=== PATIENT | male | born 1950 | race Caucasian/White ===

== ENCOUNTER 2020-02-06 10:55 | Outpatient (REF) | payer MEDICARE, SELFPAY ==
[2020-02-06 11:26] LABS: Hematocrit 45.6 % (42-52); Hemoglobin 15.2 g/dl (14.0-18.0); Mean Corpuscular HGB Conc 33.3 g/dl (31.0-36.0); Mean Corpuscular Hemoglobin 29.5 pg (27.0-33.0); Mean Corpuscular Volume 88.5 fL (80-98); Mean Platelet Volume 12.8 fL (9.4-12.4); Platelet Count 144 X10*3/uL (160-400); Red Blood Count 5.15 X10*6/uL (4.60-5.80); Red Cell Distribution Width 13.9 % (11.0-16.0)
[2020-02-06 11:29] LABS: WBC ABN SCTR FOR CBC 1
[2020-02-06 11:48] LABS: Iron 87 mcg/dL (45-160); Percent Iron Saturation 21 % (15-50); Total Iron Binding Capacity 418 mcg/dL (228-428); Unsaturated Iron Binding 331 ug/dL
[2020-02-06 12:08] LABS: Ferritin 27 ng/mL (20-250)
[2020-02-06 12:32] LABS: Band Neutrophils Percent 0 % (3-5); Basophils Percent Manual 1 % (0-1); Eosinophils Percent Manual 1 % (0-4); Lymphocytes Percent Manual 36 % (20-40); Monocytes Percent Manual 10 % (2-11); Neutrophils Percent Manual 52 % (45-73); Platelet Estimate NORMAL (NORMAL); RBC Morphology NORMAL
[2020-02-06 12:33] LABS: Basophils Abs Manual 0.1 X10*3/uL (0.0-0.3); Eosinophils Absolute Manual 0.1 X10*3/UL (0.0-0.8); Large Platelet PRESENT; Lymphocytes Absolute Manual 2.1 X10*3/uL (0.6-4.8); Monocytes Absolute Manual 0.6 X10*3/uL (0.0-1.2); Platelet Morphology Comment NOTED; White Blood Count 5.7 X10*3/uL (4.8-10.8)
== END 2020-02-06 10:56 | disposition home or self-care (01) ==
LOC: HO.BBR 10:55
PROVIDERS: Visit Provider Internal Medicine Gastroenterology
DX: E83.110 Hereditary hemochromatosis (principal)
CPT/HCPCS: 36415; 82728; 83540; 85007; 85027; 99195

== ENCOUNTER 2020-06-16 11:39 | Outpatient (REF) | payer MEDICARE, SELFPAY ==
[2020-06-16 12:06] LABS: MANUAL DIFF FLAG NO
[2020-06-16 12:08] LABS: Basophils Percent Auto 0.5 % (0-2); Eosinophils Absolute Auto 0.2 X10*3/uL (0.0-0.4); Eosinophils Percent Auto 3.4 % (0-4); Hematocrit 46.2 % (42-52); Hemoglobin 15.4 g/dl (14.0-18.0); Lymphocytes Absolute Auto 1.8 X10*3/uL (1.2-4.9); Mean Corpuscular HGB Conc 33.3 g/dl (31.0-36.0); Mean Corpuscular Volume 89.9 fL (80-98); Mean Platelet Volume 12.3 fL (9.4-12.4); Monocytes Absolute Auto 0.6 X10*3/uL (0.1-1.2); Monocytes Percent Auto 8.8 % (2-11); Neutrophils Absolute Auto 3.6 X10*3/uL (2.0-8.3); Neutrophils Percent Auto 58.3 % (45-73); Platelet Count 138 X10*3/uL (160-400); Red Blood Count 5.14 X10*6/uL (4.60-5.80); Red Cell Distribution Width 13.9 % (11.0-16.0); White Blood Count 6.2 X10*3/uL (4.8-10.8)
[2020-06-16 13:21] LABS: Iron 108 mcg/dL (45-160); Percent Iron Saturation 28 % (15-50); Total Iron Binding Capacity 389 mcg/dL (228-428); Unsaturated Iron Binding 281 ug/dL
[2020-06-16 14:36] LABS: Ferritin 22 ng/mL (20-250)
== END 2020-06-16 11:40 | disposition home or self-care (01) ==
LOC: HO.BBR 11:39
PROVIDERS: Visit Provider Internal Medicine Gastroenterology
DX: E83.110 Hereditary hemochromatosis (principal)
CPT/HCPCS: 36415; 82728; 83540; 85025

== ENCOUNTER 2020-09-01 14:26 | Outpatient (REF) | payer MEDICARE, SELFPAY ==
[2020-09-01 14:42] LABS: MANUAL DIFF FLAG NO
[2020-09-01 14:45] LABS: Basophils Percent Auto 0.4 % (0-2); Eosinophils Absolute Auto 0.3 X10*3/uL (0.0-0.4); Eosinophils Percent Auto 3.6 % (0-4); Hemoglobin 14.8 g/dl (14.0-18.0); Imm Gran Abs Auto 0.02 X10*3/uL (0.00-0.03); Imm Gran Pct Auto 0.3 % (0.0-0.4); Lymphocytes Percent Auto 28.7 % (20-40); Mean Corpuscular HGB Conc 32.9 g/dl (31.0-36.0); Mean Corpuscular Hemoglobin 30.5 pg (27.0-33.0); Mean Corpuscular Volume 92.6 fL (80-98); Mean Platelet Volume 12.7 fL (9.4-12.4); Monocytes Absolute Auto 0.7 X10*3/uL (0.1-1.2); Monocytes Percent Auto 9.7 % (2-11); Neutrophils Absolute Auto 3.9 X10*3/uL (2.0-8.3); Neutrophils Percent Auto 57.3 % (45-73); Platelet Count 135 X10*3/uL (160-400); Red Blood Count 4.86 X10*6/uL (4.60-5.80); Red Cell Distribution Width 13.1 % (11.0-16.0); White Blood Count 6.9 X10*3/uL (4.8-10.8)
[2020-09-01 15:12] LABS: Iron 137 mcg/dL (45-160); Percent Iron Saturation 32 % (15-50); Total Iron Binding Capacity 426 mcg/dL (228-428); Unsaturated Iron Binding 289 ug/dL
[2020-09-01 15:32] LABS: Ferritin 30 ng/mL (20-250)
== END 2020-09-01 14:27 | disposition home or self-care (01) ==
LOC: HO.BBR 14:26
PROVIDERS: Visit Provider Internal Medicine Gastroenterology
DX: E83.110 Hereditary hemochromatosis (principal)
CPT/HCPCS: 36415; 82728; 83540; 85025

== ENCOUNTER 2020-12-10 11:03 | Outpatient (REF) | payer MEDICARE, SELFPAY ==
[2020-12-10 11:26] LABS: Hemoglobin 14.6 g/dl (14.0-18.0); Mean Corpuscular HGB Conc 33.2 g/dl (31.0-36.0); Mean Corpuscular Volume 90.3 fL (80-98); Platelet Count 128 X10*3/uL (160-400); Red Blood Count 4.87 X10*6/uL (4.60-5.80); Red Cell Distribution Width 13.7 % (11.0-16.0); White Blood Count 5.3 X10*3/uL (4.8-10.8)
[2020-12-10 12:37] LABS: Ferritin 27 ng/mL (20-250); Iron 108 mcg/dL (45-160); Percent Iron Saturation 27 % (15-50); Total Iron Binding Capacity 407 mcg/dL (228-428); Unsaturated Iron Binding 299 ug/dL
== END 2020-12-10 11:04 | disposition home or self-care (01) ==
LOC: HO.BBR 11:03
PROVIDERS: PCP Internal Medicine; Visit Provider Internal Medicine Gastroenterology
DX: E83.110 Hereditary hemochromatosis (principal)
CPT/HCPCS: 36415; 82728; 83540; 85027

== ENCOUNTER 2021-03-12 11:04 | Outpatient (REF) | payer MEDICARE, SELFPAY ==
[2021-03-12 11:16] LABS: MANUAL DIFF FLAG NO
[2021-03-12 11:19] LABS: Basophils Percent Auto 0.4 % (0-2); Eosinophils Absolute Auto 0.3 X10*3/uL (0.0-0.4); Eosinophils Percent Auto 3.7 % (0-4); Hematocrit 45.5 % (42.0-52.0); Hemoglobin 15.1 g/dl (14.0-18.0); Imm Gran Abs Auto 0.01 X10*3/uL (0.00-0.03); Imm Gran Pct Auto 0.1 % (0.0-0.4); Lymphocytes Absolute Auto 1.9 X10*3/uL (1.2-4.9); Lymphocytes Percent Auto 28.3 % (20-40); Mean Corpuscular HGB Conc 33.2 g/dl (31.0-36.0); Mean Corpuscular Hemoglobin 30.1 pg (27.0-33.0); Mean Corpuscular Volume 90.6 fL (80.0-98.0); Mean Platelet Volume 12.2 fL (9.4-12.4); Monocytes Absolute Auto 0.6 X10*3/uL (0.1-1.2); Monocytes Percent Auto 9.4 % (2-11); Neutrophils Absolute Auto 3.9 x10*3/uL (2.0-8.3); Neutrophils Percent Auto 58.1 % (45-73); Platelet Count 146 X10*3/uL (160-400); Red Blood Count 5.02 X10*6/uL (4.60-5.80); Red Cell Distribution Width 13.2 % (11.0-16.0); White Blood Count 6.8 X10*3/uL (4.8-10.8)
[2021-03-12 12:11] LABS: Iron 108 mcg/dL (45-160); Percent Iron Saturation 27 % (15-50); Total Iron Binding Capacity 407 mcg/dL (228-428); Unsaturated Iron Binding 299 ug/dL
[2021-03-12 12:30] LABS: Ferritin 33 ng/mL (20-250)
== END 2021-03-12 11:05 | disposition home or self-care (01) ==
LOC: HO.BBR 11:04
PROVIDERS: PCP Internal Medicine; Visit Provider Internal Medicine Gastroenterology
DX: E83.110 Hereditary hemochromatosis (principal)
CPT/HCPCS: 36415; 82728; 83540; 85025

== ENCOUNTER 2021-06-12 10:57 | Outpatient (REF) | payer MEDICARE, SELFPAY ==
[2021-06-12 11:14] LABS: MANUAL DIFF FLAG NO
[2021-06-12 11:20] LABS: Basophils Percent Auto 0.3 % (0-2); Eosinophils Absolute Auto 0.2 X10*3/uL (0.0-0.4); Eosinophils Percent Auto 3.6 % (0-4); Hematocrit 45.1 % (42.0-52.0); Hemoglobin 14.8 g/dl (14.0-18.0); Imm Gran Abs Auto 0.01 X10*3/uL (0.00-0.03); Imm Gran Pct Auto 0.2 % (0.0-0.4); Lymphocytes Absolute Auto 1.9 X10*3/uL (1.2-4.9); Lymphocytes Percent Auto 31.1 % (20-40); Mean Corpuscular HGB Conc 32.8 g/dl (31.0-36.0); Mean Corpuscular Hemoglobin 29.5 pg (27.0-33.0); Mean Platelet Volume 12.6 fL (9.4-12.4); Monocytes Absolute Auto 0.6 X10*3/uL (0.1-1.2); Monocytes Percent Auto 9.9 % (2-11); Neutrophils Absolute Auto 3.3 x10*3/uL (2.0-8.3); Neutrophils Percent Auto 54.9 % (45-73); Platelet Count 139 X10*3/uL (160-400); Red Blood Count 5.01 X10*6/uL (4.60-5.80); Red Cell Distribution Width 13.4 % (11.0-16.0); White Blood Count 6.1 X10*3/uL (4.8-10.8)
[2021-06-12 11:44] LABS: Iron 92 mcg/dL (45-160); Percent Iron Saturation 22 % (15-50); Total Iron Binding Capacity 426 mcg/dL (228-428); Unsaturated Iron Binding 334 ug/dL
[2021-06-12 12:04] LABS: Ferritin 31 ng/mL (20-250)
== END 2021-06-12 10:58 | disposition home or self-care (01) ==
LOC: HO.BBR 10:57
PROVIDERS: Visit Provider Internal Medicine Gastroenterology
DX: E83.110 Hereditary hemochromatosis (principal)
CPT/HCPCS: 36415; 82728; 83540; 85025

== ENCOUNTER 2021-09-09 10:50 | Outpatient (REF) | payer MEDICARE, SELFPAY ==
[2021-09-09 11:09] LABS: Hematocrit 45.2 % (42.0-52.0); Hemoglobin 15.3 g/dl (14.0-18.0); Mean Corpuscular HGB Conc 33.8 g/dl (31.0-36.0); Mean Corpuscular Volume 88.6 fL (80.0-98.0); Mean Platelet Volume 12.7 fL (9.4-12.4); Platelet Count 131 X10*3/uL (160-400); Red Cell Distribution Width 13.2 % (11.0-16.0)
[2021-09-09 11:11] LABS: WBC ABN SCTR FOR CBC 1
[2021-09-09 12:13] LABS: Iron 113 mcg/dL (45-160); Percent Iron Saturation 27 % (15-50); Total Iron Binding Capacity 411 mcg/dL (228-428); Unsaturated Iron Binding 298 ug/dL
[2021-09-09 12:34] LABS: Ferritin 30 ng/mL (20-250)
== END 2021-09-09 10:51 | disposition home or self-care (01) ==
LOC: HO.BBR 10:50
PROVIDERS: Visit Provider Internal Medicine Gastroenterology
DX: E83.110 Hereditary hemochromatosis (principal)
CPT/HCPCS: 36415; 82728; 83540; 85027

== ENCOUNTER 2021-12-10 10:45 | Outpatient (REF) | payer MEDICARE, SELFPAY ==
[2021-12-10 11:09] LABS: MANUAL DIFF FLAG NO
[2021-12-10 11:11] LABS: Basophils Percent Auto 0.5 % (0-2); Eosinophils Absolute Auto 0.2 X10*3/uL (0.0-0.4); Eosinophils Percent Auto 3.9 % (0-4); Hematocrit 46.3 % (42.0-52.0); Hemoglobin 15.5 g/dl (14.0-18.0); Imm Gran Abs Auto 0.01 X10*3/uL (0.00-0.03); Imm Gran Pct Auto 0.2 % (0.0-0.4); Lymphocytes Absolute Auto 1.7 X10*3/uL (1.2-4.9); Lymphocytes Percent Auto 29.5 % (20-40); Mean Corpuscular HGB Conc 33.5 g/dl (31.0-36.0); Mean Corpuscular Hemoglobin 30.2 pg (27.0-33.0); Mean Corpuscular Volume 90.3 fL (80.0-98.0); Mean Platelet Volume 12.5 fL (9.4-12.4); Monocytes Absolute Auto 0.6 X10*3/uL (0.1-1.2); Monocytes Percent Auto 10.2 % (2-11); Neutrophils Absolute Auto 3.3 x10*3/uL (2.0-8.3); Neutrophils Percent Auto 55.7 % (45-73); Platelet Count 136 X10*3/uL (160-400); Red Blood Count 5.13 X10*6/uL (4.60-5.80); Red Cell Distribution Width 13.5 % (11.0-16.0); White Blood Count 5.9 X10*3/uL (4.8-10.8)
[2021-12-10 11:58] LABS: Iron 78 mcg/dL (45-160); Percent Iron Saturation 18 % (15-50); Total Iron Binding Capacity 441 mcg/dL (228-428); Unsaturated Iron Binding 363 ug/dL
[2021-12-10 12:06] LABS: Ferritin 35 ng/mL (20-250)
== END 2021-12-10 10:46 | disposition home or self-care (01) ==
LOC: HO.BBR 10:45
PROVIDERS: Visit Provider Internal Medicine Gastroenterology
DX: E83.110 Hereditary hemochromatosis (principal)
CPT/HCPCS: 36415; 82728; 83540; 85025

== ENCOUNTER 2022-03-24 10:52 | Outpatient (REF) | payer MEDICARE, SELFPAY ==
[2022-03-24 11:15] LABS: MANUAL DIFF FLAG NO
[2022-03-24 11:17] LABS: Basophils Percent Auto 0.4 % (0-2); Eosinophils Absolute Auto 0.2 X10*3/uL (0.0-0.4); Eosinophils Percent Auto 2.8 % (0-4); Hematocrit 45.4 % (42.0-52.0); Hemoglobin 15.3 g/dl (14.0-18.0); Imm Gran Abs Auto 0.02 X10*3/uL (0.00-0.03); Imm Gran Pct Auto 0.3 % (0.0-0.4); Lymphocytes Absolute Auto 1.7 X10*3/uL (1.2-4.9); Lymphocytes Percent Auto 24.5 % (20-40); Mean Corpuscular HGB Conc 33.7 g/dl (31.0-36.0); Mean Corpuscular Hemoglobin 29.8 pg (27.0-33.0); Mean Corpuscular Volume 88.5 fL (80.0-98.0); Mean Platelet Volume 11.9 fL (9.4-12.4); Monocytes Absolute Auto 0.6 X10*3/uL (0.1-1.2); Monocytes Percent Auto 8.3 % (2-11); Neutrophils Absolute Auto 4.4 x10*3/uL (2.0-8.3); Neutrophils Percent Auto 63.7 % (45-73); Platelet Count 209 X10*3/uL (160-400); Red Blood Count 5.13 X10*6/uL (4.60-5.80); Red Cell Distribution Width 13.3 % (11.0-16.0); White Blood Count 6.9 X10*3/uL (4.8-10.8)
[2022-03-24 11:49] LABS: Iron 122 mcg/dL (45-160); Percent Iron Saturation 32 % (15-50); Total Iron Binding Capacity 384 mcg/dL (228-428); Unsaturated Iron Binding 262 ug/dL
[2022-03-24 12:10] LABS: Ferritin 42 ng/mL (20-250)
== END 2022-03-24 10:53 | disposition home or self-care (01) ==
LOC: HO.BBR 10:52
PROVIDERS: Visit Provider Internal Medicine Gastroenterology
DX: E83.110 Hereditary hemochromatosis (principal)
CPT/HCPCS: 36415; 82728; 83540; 85025

== ENCOUNTER 2022-06-09 10:53 | Outpatient (REF) | payer MEDICARE, SELFPAY ==
[2022-06-09 11:15] LABS: MANUAL DIFF FLAG NO
[2022-06-09 11:21] LABS: Basophils Percent Auto 0.5 % (0-2); Eosinophils Absolute Auto 0.2 X10*3/uL (0.0-0.4); Eosinophils Percent Auto 3.4 % (0-4); Hematocrit 44.6 % (42.0-52.0); Hemoglobin 14.4 g/dl (14.0-18.0); Imm Gran Abs Auto 0.01 X10*3/uL (0.00-0.03); Imm Gran Pct Auto 0.2 % (0.0-0.4); Lymphocytes Absolute Auto 1.9 X10*3/uL (1.2-4.9); Lymphocytes Percent Auto 32.4 % (20-40); Mean Corpuscular HGB Conc 32.3 g/dl (31.0-36.0); Mean Corpuscular Hemoglobin 28.6 pg (27.0-33.0); Mean Corpuscular Volume 88.5 fL (80.0-98.0); Mean Platelet Volume 12.3 fL (9.4-12.4); Monocytes Absolute Auto 0.6 X10*3/uL (0.1-1.2); Monocytes Percent Auto 9.9 % (2-11); Neutrophils Absolute Auto 3.2 x10*3/uL (2.0-8.3); Neutrophils Percent Auto 53.6 % (45-73); Platelet Count 148 X10*3/uL (160-400); Red Blood Count 5.04 X10*6/uL (4.60-5.80); Red Cell Distribution Width 13.6 % (11.0-16.0)
[2022-06-09 12:23] LABS: Iron 129 mcg/dL (45-160); Percent Iron Saturation 34 % (15-50); Total Iron Binding Capacity 381 mcg/dL (228-428); Unsaturated Iron Binding 252 ug/dL
[2022-06-09 12:32] LABS: Ferritin 30 ng/mL (20-250)
== END 2022-06-09 10:54 | disposition home or self-care (01) ==
LOC: HO.BBR 10:53
PROVIDERS: Visit Provider Internal Medicine Gastroenterology
DX: E83.110 Hereditary hemochromatosis (principal)
CPT/HCPCS: 36415; 82728; 83540; 85025

== ENCOUNTER 2022-09-29 10:47 | Outpatient (REF) | payer MEDICARE, SELFPAY ==
[2022-09-29 11:10] LABS: Hematocrit 44.7 % (42.0-52.0); Hemoglobin 14.4 g/dl (14.0-18.0); Mean Corpuscular HGB Conc 32.2 g/dl (31.0-36.0); Mean Corpuscular Volume 89.9 fL (80.0-98.0); Platelet Count 151 X10*3/uL (160-400); Red Blood Count 4.97 X10*6/uL (4.60-5.80); Red Cell Distribution Width 15.3 % (11.0-16.0)
[2022-09-29 11:15] LABS: WBC ABN SCTR FOR CBC 1
[2022-09-29 11:48] LABS: Atypical Lymphs Percent Manual 1 % (0-6); Band Neutrophils Percent 1 % (3-5); Basophils Percent Manual 1 % (0-2); Eosinophils Percent Manual 3 % (0-4); Lymphocytes Percent Manual 31 % (20-40); Monocytes Percent Manual 6 % (2-11); Neutrophils Percent Manual 57 % (45-73)
[2022-09-29 11:49] LABS: Platelet Estimate NORMAL (NORMAL); Platelet Morphology Comment NORMAL; RBC Morphology NORMAL
[2022-09-29 11:50] LABS: Atypical Lymph Absolute Manual 0.1 x10*3/uL; Basophils Abs Manual 0.1 X10*3/uL (0.0-0.2); Eosinophils Absolute Manual 0.3 X10*3/uL (0.0-0.4); Monocytes Absolute Manual 0.6 X10*3/uL (0.1-1.2); Neutrophils Absolute Manual 5.6 X10*3/uL (2.0-8.3); White Blood Count 9.6 X10*3/uL (4.8-10.8)
[2022-09-29 11:59] LABS: Iron 90 mcg/dL (45-160); Percent Iron Saturation 22 % (15-50); Total Iron Binding Capacity 408 mcg/dL (228-428); Unsaturated Iron Binding 318 ug/dL
[2022-09-29 12:00] LABS: Ferritin 21 ng/mL (20-250)
== END 2022-09-29 10:48 | disposition home or self-care (01) ==
LOC: HO.BBR 10:47
PROVIDERS: Visit Provider Internal Medicine Gastroenterology
DX: E83.110 Hereditary hemochromatosis (principal)
CPT/HCPCS: 36415; 82728; 83540; 85007; 85027

== ENCOUNTER 2022-12-30 11:02 | Outpatient (REF) | payer MEDICARE, SELFPAY ==
[2022-12-30 11:33] LABS: MANUAL DIFF FLAG NO
[2022-12-30 11:38] LABS: Basophils Percent Auto 0.3 % (0-2); Eosinophils Absolute Auto 0.2 X10*3/uL (0.0-0.4); Eosinophils Percent Auto 3.5 % (0-4); Hematocrit 42.5 % (42.0-52.0); Hemoglobin 14.1 g/dl (14.0-18.0); Imm Gran Abs Auto 0.01 X10*3/uL (0.00-0.03); Imm Gran Pct Auto 0.2 % (0.0-0.4); Lymphocytes Absolute Auto 1.6 X10*3/uL (1.2-4.9); Lymphocytes Percent Auto 27.6 % (20-40); Mean Corpuscular HGB Conc 33.2 g/dl (31.0-36.0); Mean Corpuscular Hemoglobin 29.3 pg (27.0-33.0); Mean Corpuscular Volume 88.2 fL (80.0-98.0); Mean Platelet Volume 12.7 fL (9.4-12.4); Monocytes Absolute Auto 0.4 X10*3/uL (0.1-1.2); Monocytes Percent Auto 7.7 % (2-11); Neutrophils Absolute Auto 3.5 x10*3/uL (2.0-8.3); Neutrophils Percent Auto 60.7 % (45-73); Platelet Count 131 X10*3/uL (160-400); Red Blood Count 4.82 X10*6/uL (4.60-5.80); Red Cell Distribution Width 13.9 % (11.0-16.0); White Blood Count 5.7 X10*3/uL (4.8-10.8)
[2022-12-30 14:01] LABS: Iron 126 mcg/dL (45-160); Percent Iron Saturation 33 % (15-50); Total Iron Binding Capacity 377 mcg/dL (228-428); Unsaturated Iron Binding 251 ug/dL
[2022-12-30 14:16] LABS: Ferritin 22 ng/mL (20-250)
== END 2022-12-30 11:03 | disposition home or self-care (01) ==
LOC: HO.BBR 11:02
PROVIDERS: Visit Provider Internal Medicine Gastroenterology
DX: E83.110 Hereditary hemochromatosis (principal)
CPT/HCPCS: 36415; 82728; 83540; 85025

== ENCOUNTER 2023-03-31 10:59 | Outpatient (REF) | payer MEDICARE, SELFPAY ==
[2023-03-31 11:16] LABS: MANUAL DIFF FLAG NO
[2023-03-31 11:23] LABS: Basophils Percent Auto 0.4 % (0-2); Eosinophils Absolute Auto 0.3 X10*3/uL (0.0-0.4); Eosinophils Percent Auto 5.5 % (0-4); Hematocrit 46.4 % (42.0-52.0); Hemoglobin 14.9 g/dl (14.0-18.0); Imm Gran Abs Auto 0.01 X10*3/uL (0.00-0.03); Imm Gran Pct Auto 0.2 % (0.0-0.4); Lymphocytes Absolute Auto 1.5 X10*3/uL (1.2-4.9); Lymphocytes Percent Auto 26.3 % (20-40); Mean Corpuscular HGB Conc 32.1 g/dl (31.0-36.0); Mean Corpuscular Hemoglobin 28.2 pg (27.0-33.0); Mean Corpuscular Volume 87.9 fL (80.0-98.0); Mean Platelet Volume 12.6 fL (9.4-12.4); Monocytes Absolute Auto 0.4 X10*3/uL (0.1-1.2); Monocytes Percent Auto 6.2 % (2-11); Neutrophils Absolute Auto 3.5 x10*3/uL (2.0-8.3); Neutrophils Percent Auto 61.4 % (45-73); Platelet Count 144 X10*3/uL (160-400); Red Blood Count 5.28 X10*6/uL (4.60-5.80); Red Cell Distribution Width 14.9 % (11.0-16.0); White Blood Count 5.6 X10*3/uL (4.8-10.8)
[2023-03-31 12:32] LABS: Ferritin 27 ng/mL (20-250); Iron 78 mcg/dL (45-160); Percent Iron Saturation 21 % (15-50); Total Iron Binding Capacity 375 mcg/dL (228-428); Unsaturated Iron Binding 297 ug/dL
== END 2023-03-31 11:00 | disposition home or self-care (01) ==
LOC: HO.BBR 10:59
PROVIDERS: PCP Internal Medicine; Visit Provider Internal Medicine Gastroenterology
DX: E83.110 Hereditary hemochromatosis (principal)
CPT/HCPCS: 36415; 82728; 83540; 85025

== ENCOUNTER 2023-08-22 10:48 | Outpatient (REF) | payer MEDICARE, SELFPAY ==
[2023-08-22 11:10] LABS: MANUAL DIFF FLAG NO
[2023-08-22 11:12] LABS: Basophils Percent Auto 0.4 % (0-2); Eosinophils Absolute Auto 0.2 X10*3/uL (0.0-0.4); Eosinophils Percent Auto 4.1 % (0-4); Hematocrit 44.7 % (42.0-52.0); Hemoglobin 14.6 g/dl (14.0-18.0); Imm Gran Abs Auto 0.01 X10*3/uL (0.00-0.03); Imm Gran Pct Auto 0.2 % (0.0-0.4); Lymphocytes Absolute Auto 1.5 X10*3/uL (1.2-4.9); Lymphocytes Percent Auto 27.9 % (20-40); Mean Corpuscular HGB Conc 32.7 g/dl (31.0-36.0); Mean Corpuscular Volume 88.9 fL (80.0-98.0); Monocytes Absolute Auto 0.4 X10*3/uL (0.1-1.2); Monocytes Percent Auto 8.2 % (2-11); Neutrophils Absolute Auto 3.2 x10*3/uL (2.0-8.3); Neutrophils Percent Auto 59.2 % (45-73); Platelet Count 138 X10*3/uL (160-400); Red Blood Count 5.03 X10*6/uL (4.60-5.80); Red Cell Distribution Width 15.9 % (11.0-16.0); White Blood Count 5.4 X10*3/uL (4.8-10.8)
[2023-08-22 13:14] LABS: Iron 103 mcg/dL (45-160); Percent Iron Saturation 29 % (15-50); Total Iron Binding Capacity 358 mcg/dL (228-428); Unsaturated Iron Binding 255 ug/dL
[2023-08-22 13:22] LABS: Ferritin 28 ng/mL (20-250)
== END 2023-08-22 10:49 | disposition home or self-care (01) ==
LOC: HO.BBR 10:48
PROVIDERS: PCP Internal Medicine; Visit Provider Internal Medicine Gastroenterology
DX: E83.110 Hereditary hemochromatosis (principal)
CPT/HCPCS: 36415; 82728; 83540; 85025

== ENCOUNTER 2024-01-23 11:00 | Outpatient (REF) | payer MEDICARE, SELFPAY ==
[2024-01-23 11:18] LABS: Hematocrit 46.7 % (42.0-52.0); Hemoglobin 15.6 g/dl (14.0-18.0); Mean Corpuscular HGB Conc 33.4 g/dl (31.0-36.0); Mean Corpuscular Hemoglobin 30.1 pg (27.0-33.0); Mean Platelet Volume 12.4 fL (9.4-12.4); Platelet Count 149 X10*3/uL (160-400); Red Blood Count 5.19 X10*6/uL (4.60-5.80); Red Cell Distribution Width 14.3 % (11.0-16.0); WBC ABN SCTR FOR CBC 1
[2024-01-23 11:47] LABS: Band Neutrophils Percent 0 % (3-5); Basophils Percent Manual 2 % (0-2); Eosinophils Percent Manual 1 % (0-4); Lymphocytes Percent Manual 25 % (20-40); Monocytes Percent Manual 8 % (2-11); Neutrophils Percent Manual 64 % (45-73); RBC Morphology NORMAL
[2024-01-23 11:48] LABS: Basophils Abs Manual 0.1 X10*3/uL (0.0-0.2); Eosinophils Absolute Manual 0.1 X10*3/uL (0.0-0.4); Lymphocytes Absolute Manual 1.6 X10*3/uL (1.2-4.9); Monocytes Absolute Manual 0.5 X10*3/uL (0.1-1.2); Neutrophils Absolute Manual 4.2 X10*3/uL (2.0-8.3); Platelet Estimate NORMAL (NORMAL); Platelet Morphology Comment NORMAL; White Blood Count 6.5 X10*3/uL (4.8-10.8)
[2024-01-23 12:47] LABS: Iron 193 mcg/dL (45-160); Percent Iron Saturation 51 % (15-50); Total Iron Binding Capacity 376 mcg/dL (228-428); Unsaturated Iron Binding 183 ug/dL
[2024-01-23 12:49] LABS: Ferritin 60 ng/mL (20-250)
== END 2024-01-23 11:01 | disposition home or self-care (01) ==
LOC: HO.BBR 11:00
PROVIDERS: PCP Internal Medicine; Visit Provider Internal Medicine Gastroenterology
DX: E83.110 Hereditary hemochromatosis (principal)
CPT/HCPCS: 36415; 82728; 83540; 85007; 85027

== ENCOUNTER 2024-06-01 10:56 | Outpatient (REF) | payer MEDICARE, SELFPAY ==
[2024-06-01 11:19] LABS: MANUAL DIFF FLAG NO
[2024-06-01 11:20] LABS: Basophils Percent Auto 0.4 % (0-2); Eosinophils Absolute Auto 0.2 X10*3/uL (0.0-0.4); Eosinophils Percent Auto 3.9 % (0-4); Hematocrit 45.9 % (42.0-52.0); Hemoglobin 15.4 g/dl (14.0-18.0); Imm Gran Abs Auto 0.01 X10*3/uL (0.00-0.03); Imm Gran Pct Auto 0.2 % (0.0-0.4); Lymphocytes Absolute Auto 1.6 X10*3/uL (1.2-4.9); Lymphocytes Percent Auto 30.8 % (20-40); Mean Corpuscular HGB Conc 33.6 g/dl (31.0-36.0); Mean Corpuscular Hemoglobin 30.8 pg (27.0-33.0); Mean Corpuscular Volume 91.8 fL (80.0-98.0); Mean Platelet Volume 12.5 fL (9.4-12.4); Monocytes Absolute Auto 0.4 X10*3/uL (0.1-1.2); Monocytes Percent Auto 7.5 % (2-11); Neutrophils Percent Auto 57.2 % (45-73); Platelet Count 142 X10*3/uL (160-400); Red Cell Distribution Width 13.9 % (11.0-16.0); White Blood Count 5.2 X10*3/uL (4.8-10.8)
[2024-06-01 12:08] LABS: Iron 104 mcg/dL (45-160); Percent Iron Saturation 30 % (15-50); Total Iron Binding Capacity 347 mcg/dL (228-428); Unsaturated Iron Binding 243 ug/dL
[2024-06-01 12:23] LABS: Ferritin 34 ng/mL (20-250)
== END 2024-06-01 10:57 | disposition home or self-care (01) ==
LOC: HO.BBR 10:56
PROVIDERS: PCP Internal Medicine; Visit Provider Internal Medicine Gastroenterology
DX: E83.110 Hereditary hemochromatosis (principal)

== ENCOUNTER 2024-10-01 10:54 | Outpatient (REF) | payer MEDICARE, SELFPAY ==
[2024-10-01 11:10] LABS: MANUAL DIFF FLAG NO
[2024-10-01 11:11] LABS: Basophils Percent Auto 0.5 % (0-2); Eosinophils Absolute Auto 0.2 X10*3/uL (0.0-0.4); Eosinophils Percent Auto 3.2 % (0-4); Hematocrit 47.8 % (42.0-52.0); Imm Gran Abs Auto 0.02 X10*3/uL (0.00-0.03); Imm Gran Pct Auto 0.3 % (0.0-0.4); Lymphocytes Absolute Auto 1.7 X10*3/uL (1.2-4.9); Lymphocytes Percent Auto 25.3 % (20-40); Mean Corpuscular HGB Conc 33.5 g/dl (31.0-36.0); Mean Corpuscular Volume 92.6 fL (80.0-98.0); Mean Platelet Volume 12.3 fL (9.4-12.4); Monocytes Absolute Auto 0.6 X10*3/uL (0.1-1.2); Monocytes Percent Auto 8.9 % (2-11); Neutrophils Absolute Auto 4.1 x10*3/uL (2.0-8.3); Neutrophils Percent Auto 61.8 % (45-73); Platelet Count 148 X10*3/uL (160-400); Red Blood Count 5.16 X10*6/uL (4.60-5.80); Red Cell Distribution Width 13.1 % (11.0-16.0); White Blood Count 6.6 X10*3/uL (4.8-10.8)
[2024-10-01 11:59] LABS: Iron 182 mcg/dL (45-160); Percent Iron Saturation 47 % (15-50); Total Iron Binding Capacity 388 mcg/dL (228-428); Unsaturated Iron Binding 206 ug/dL
[2024-10-01 12:13] LABS: Ferritin 39 ng/mL (20-250)
--- OUTSIDE RECORDS SUMMARY | 2024-10-01 12:29 | XMS_ITS | Data Portability ---
Author Organization [facility], [facility] Address [address] [place] [address] Care Team Providers Care Piano Builder Name Role Phone JESUS ALBERTORAMONA NOLEN Primary Care Provider STERLING PACHECO College Director SHYAM KABA Sleep Medicine Assessment Encounter Date Assessment Date Assessment LastModified by Organization Details LastModified Time 04/27/2023 04/27/2023 We completed your Medicare Wellness exam today. This was an opportunity to assess your overall well being including your ability to care for yourself, your mobility, memory, mental health, as well as your safety. With advancing age, it is important to assign someone in your life as your Health Care Proxy (HCP). This person should know what is important to you and what your wishes are for medical procedures if you cannot communicate your wishes yourself (severe illness, unconsciousness) . Tetanus Vaccine : Every 10 years. The following vaccines are available from your pharmacy: Pneumonia Vaccine : PCV20: once after age 65. Shingles Vaccine : 2 shots after age 50. Covid Vaccine : Make sure you have received the most up to date covid vaccine. 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 has committed to healthy lifestyle in effort to get in shape and lose weight. Looks well. 02/2022 gassiness eased with fewer carbs, cut dairy as well, stools have firmed up a bit 08/25/2021 usual GI complaints, appear easing however 02/2021 normal exam 07/16/2020 allergies- U retention from antihistamine loose stool with urgency 2-3 times day, try mehdi bean video 01/16/2020 lisinopril increased to 20 with new Rx as his home BP's 140 systolic asked to follow 07/2019 telemed doxy each problem reviewed, stable in each instance atopy; may try half tab of OTC non sedating antihistamine in light of liver disease 12/2018 needs shingles motrin and claritin discussed for knee exercise pain and seasonal allergies. 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 has committed to healthy lifestyle in effort to get in shape and lose weight. Looks well. 02/2022 gassiness eased with fewer carbs, cut dairy as well, stools have firmed up a bit 08/25/2021 usual GI complaints, appear easing however 02/2021 normal exam 07/16/2020 allergies- U retention from antihistamine loose stool with urgency 2-3 times day, try mehdi bean video 01/16/2020 lisinopril increased to 20 with new Rx as his home BP's 140 systolic asked to follow 07/2019 telemed doxy each problem reviewed, stable in each instance atopy; may try half tab of OTC non sedating antihistamine in light of liver disease 12/2018 needs shingles motrin and claritin discussed for knee exercise pain and seasonal allergies. rvigderman Not available 01/03/2024 08:48:31 05/25/2024 05/25/2024 We completed your Medicare Wellness exam today. This was an opportunity to assess your overall well being including your ability to care for yourself, your mobility, memory, mental health, as well as your safety. With advancing age, it is important to assign someone in your life as your Health Care Proxy (HCP). This person should know what is important to you and what your wishes are for medical procedures if you cannot communicate your wishes yourself (severe illness, unconsciousness) . Influenza Vaccine : Flu shot yearly. Tetanus Vaccine : Every 10 years. The following vaccines are available from your pharmacy: Pneumonia Vaccine : PCV20: once after age 65. Shingles Vaccine : 2 shots after age 50. Covid Vaccine : Make sure you have received the most up to date covid vaccine. liked Dr Negrete work with IOL 11/2023- rj nght driving active in [place] goal HR 115 for ten minutes seen twice a year. june in [facility] .. cookie Not available 05/25/2024 11:49:33 Plan of Treatment Reminders Order Date Submit Date Provider Last Modified By Organization Details Last Modified Time Details Appointments LAB Follow-U p 2024 09:00A M [facility] Not available Not available Not available Medical Manageme nt 30 2024 09:30A M Ramona Dunn MD Not available Not available Not available Lab PSA, serum or plasma 2024 025 [facility], [address] [place] [address], [id number], 05/25/2024 11:49:10 PSA, serum or plasma 2023 025 [facility], [address] [place] [address], [id number], 01/03/2024 08:55:15 Referral dermatol ogist referral 2023 024 [facility], [address] [place] [address], [id number], 08/22/2023 09:31:57 Procedures colonosc opy procedur e (PROC) [address] [facility], [address] [place] [address], [id number], 05/28/2024 09:47:16 Surgeries None recorded . Imaging None recorded . Medication Orders amoxicil abisai 500 mg capsule 2023 024 [facility] #[id number], [address] [place], [address], 01/03/2024 08:55:18 Patient TargetsNo targets recorded. Patient Instructions Encounter Date Encounter Id Patient Instructions Last Modified By Organization Details Last Modified Time 04/27/2023 [id number] preventing falls: care instructions rvigderman Not available 04/30/2023 08:31:37 hearing loss information rvigderman Not available 04/30/2023 08:31:36 advance directives: care instructions rvigderman Not available 04/30/2023 08:31:37 well visit, over 65: care instructions rvigderman Not available 04/30/2023 08:31:36 08/19/2023 [id number] - Per our discussion you have agreed with the above assessment/plan as stated. - Please follow-up with our office as recommended and perform lab work/imaging/ref erral if indicated. - You can follow-up with our office sooner for any acute concern at [phone]. - If unable to reach our practice and you are in need of immediate care do not hesitate to seek immediate medical attention by calling 911 or going to the ER/Urgent care. - All questions answered. pfionte Not available 08/19/2023 09:47:46 02/27/2024 [id number] high blood pressure: care instructions rvigderman Not available 02/27/2024 09:43:46 learning about high blood pressure rvigderman Not available 02/27/2024 09:43:47 05/25/2024 [id number] high blood pressure: care instructions rvigderman Not available 05/25/2024 11:49:10 learning about high blood pressure rvigderman Not available 05/25/2024 11:49:10 Reason for Referral Electric Tape Slitter Referral for S eborrheic keratosis Referring Physician: Danny Wolf, Family Medicine, Encounter Date: 08/19/2023 Results Created Date Observation Date Name Description Value Unit Range Abnormal Flag Note LastModifiedBy Organization Detail LastModifiedTime 03/29/2003/29/2023 COMPR EHENS MERLYN METAB OLIC PANEL sodium 141 mmol/ L 133-14 6 Not Available [facility] (Out[facility]) [address] [place], [address], 03/29/2023 17:08:21 03/29/20 23 03/29/2023 COMPR EHENS MERLYN METAB OLIC PANEL potassium 4.5 mmol/ L 3.3-5. 1 Not Available [facility] (Outpatient) [address] [place], [address], 03/29/2023 17:08:21 03/29/20 23 03/29/2023 COMPR EHENS MERLYN METAB OLIC PANEL chloride 103 mmol/ L 96-108 Not Available [facility] (Outpatient) [address] [place], [address], 03/29/2023 17:08:21 03/29/20 23 03/29/2023 COMPR EHENS MERLYN METAB OLIC PANEL CO2 29 mmol/ L 21-35 Not Available [facility] (Outpatient) [address] [place], [address], 03/29/2023 17:08:21 03/29/20 23 03/29/2023 COMPR EHENS MERLYN METAB OLIC PANEL BUN 15 mg/dL 6-19 Not Available [facility] (Outpatient) [address] [place], [address], 03/29/2023 17:08:21 03/29/20 23 03/29/2023 COMPR EHENS MERLYN METAB OLIC PANEL creatinine 1.00 mg/dL 0.5-1. 5 Not Available [facility] (Outpatient) [address] [place], [address], 03/29/2023 17:08:21 03/29/20 23 03/29/2023 COMPR EHENS MERLYN METAB OLIC PANEL glucose 109 mg/dL 70-99 high Not Available [facility] (Outpatient) [address] [place], [address], 03/29/2023 17:08:21 03/29/20 23 03/29/2023 COMPR EHENS MERLYN METAB OLIC PANEL albumin 4.7 g/dL 3.9-4. 8 Not Available [facility] (Outpatient) [address] [place], [address], 03/29/2023 17:08:21 03/29/20 23 03/29/2023 COMPR EHENS MERLYN METAB OLIC PANEL total protein 7.6 g/dL 6.5-8. 0 Not Available [facility] (Outpatient) [address] [place], [address], 03/29/2023 17:08:21 03/29/20 23 03/29/2023 COMPR EHENS MERLYN METAB OLIC PANEL calcium 9.6 mg/dL 8.4-10 .3 Not Available [facility] (Outpatient) [address] [place], [address], 03/29/2023 17:08:21 03/29/20 23 03/29/2023 COMPR EHENS MERLYN METAB OLIC PANEL alkaline phosphatase 56 U/L 39-117 Not Available [facility] (Outpatient) [address] [place], [address], 03/29/2023 17:08:21 03/29/20 23 03/29/2023 COMPR EHENS MERLYN METAB OLIC PANEL total bilirubin 0.5 mg/dL 0.0-1. 2 Not Available [facility] (Outpatient) [address] [place], [address], 03/29/2023 17:08:21 03/29/20 23 03/29/2023 COMPR EHENS MERLYN METAB OLIC PANEL AST 31 U/L 0-37 Not Available [facility] (Out[facility]) [address] [place], [address], 03/29/2023 17:08:21 03/29/20 23 03/29/2023 COMPR EHENS MERLYN METAB OLIC PANEL ALT 25 U/L 0-40 Not Available [facility] (Outpatient) [address] [place], [address], 03/29/2023 17:08:21 03/29/20 23 03/29/2023 COMPR EHENS MERLYN METAB OLIC PANEL globulin 2.9 g/dL 1-4.8 Not Available [facility] (Outpatient) [address] [place], [address], 03/29/2023 17:08:21 03/29/20 23 03/29/2023 COMPR EHENS MERLYN METAB OLIC PANEL eGFR 79 mL/mi n/1.7 3m2 >59 Estim ated glome rular filtr ation rate calcu lated using the CKD-E PI refit equat ion. Not Available [facility] (Outpatient) [address] [place], [address], 03/29/2023 17:08:21 03/29/20 23 03/29/2023 COMPR EHENS MERLYN METAB OLIC PANEL anion gap 14 mmol/ L 10-20 Not Available [facility] (Outpatient) [address] [place], [address], 03/29/2023 17:08:21 03/29/20 23 03/29/2023 AFP (NON- MATER NAL SPECI MENS) AFP (non-materna l) 4.2 NG/mL <7.9 Test Metho dolog y Viji e801 Patie nt resul ts deter mined by assay s using diffe rent manuf actur ers or metho ds may not be malia rable . Not Available [facility] (Outpatient) [address] [place], [address], 03/29/2023 17:22:26 04/21/20 23 04/21/2023 BASIC METAB OLIC PANEL glucose 116 mg/dL 70-100 high Not Available [address], [address], 04/21/2023 14:32:21 04/21/20 23 04/21/2023 BASIC METAB OLIC PANEL BUN 20 mg/dL 7-18 high Not Available [address], [address], 04/21/2023 14:32:21 04/21/20 23 04/21/2023 BASIC METAB OLIC PANEL creatinine 1.1 mg/dL 0.8-1. 3 Not Available [address], [address], 04/21/2023 14:32:21 04/21/20 23 04/21/2023 BASIC METAB OLIC PANEL B/C 18.2 ratio Not Available [address], [address], 04/21/2023 14:32:21 04/21/20 23 04/21/2023 BASIC METAB OLIC PANEL GFR >=60ML /MIN mL/mi n normal >=60m L/min - Andreina l or midly reduc ed <60mL /min- Decre ased kidne y funct ion <15mL /min - Kidne y failu re [facility] calcu lates estim ated Glome rular Filtr ation Rate (eGFR ) using the Chron ic Kidne y Disea se Epide miolo gy Colla borat ion (CKD- EPI) Equat ion (Stefany r et. al 2020) as recom gillian d by the Natio nal Kidne y Found ation . eGFR is based on age, serum creat inine , and sex. CKD-E PI does not calcu late eGFR by race, does not apply to child lane (age <18 years ), and shoul d not be used in pregn julisa. Not Available [address], [address], 04/21/2023 14:32:21 04/21/20 23 04/21/2023 BASIC METAB OLIC PANEL sodium 144 mmol/ L 136-14 5 Not Available [address], [address], 04/21/2023 14:32:21 04/21/20 23 04/21/2023 BASIC METAB OLIC PANEL potassium 4.4 mmol/ L 3.5-5. 1 Not Available [address], [address], 04/21/2023 14:32:21 04/21/20 23 04/21/2023 BASIC METAB OLIC PANEL chloride 105 mmol/ L 96-107 Not Available [address], [address], 04/21/2023 14:32:21 04/21/20 23 04/21/2023 BASIC METAB OLIC PANEL anion gap 11.5 5.0-15 .0 Not Available [address], [address], 04/21/2023 14:32:21 04/21/20 23 04/21/2023 BASIC METAB OLIC PANEL CO2 28 mmol/ L 21-32 Not Available [address], [address], 04/21/2023 14:32:21 04/21/20 23 04/21/2023 BASIC METAB OLIC PANEL calcium 9.1 mg/dL 8.5-10 .3 Not Available [address], [address], 04/21/2023 14:32:21 04/21/20 23 04/21/2023 LIPID PANEL cholesterol 152 mg/dL <200 mg/dl Ric able 200-2 39 mg/dl Borde rline High >240 mg/dl High Not Available [address], [address], 04/21/2023 14:32:22 04/21/20 23 04/21/2023 LIPID PANEL triglyceride s 64 mg/dL <150 mg/dL Andreina l 150-1 99 mg/dL Borde rline High 200-4 99 mg/dL High >500 mg/dL Very High Not Available [address], [address], 04/21/2023 14:32:22 04/21/20 23 04/21/2023 LIPID PANEL direct HDL 49 mg/dL <40 mg/dl - Major Risk for CHD >60 mg/dl - Negat merlyn Risk for CHD Not Available [address], [address], 04/21/2023 14:32:22 04/21/20 23 04/21/2023 LDL - CALCU LATED LDL - calculated 90.2 RISK CATEG ORY LDL GOAL _ CHD or CHD Risk Equiv alent s <100 mg/dl (10-y ear risk >20%) 2+ Risk Facto rs <130 mg/dl (10-y ear risk <= 20%) 0-1 Risk Facto r? <160 mg/dl ? Almos t all peopl e with 0-1 risk facto r have a 10 year risk <10%, thus 10 year risk asses ment in peopl e with 0-1 risk facto r is not neces daniel. Not Available [address], [address], 04/21/2023 14:32:23 04/21/20 23 04/21/2023 HGB A1C hemoglobin A1C 6.0 % 4.8-6. 0 Goal: <7% in Patie nts with Diabe ayush An A1c betwe en 5.7-6 .4% is ident ified as pre-d iabet es and sugge sts risk for progr essio n to diabe ayush Two a1c value s of 6.5% or highe r is consi stent with a diagn osis of diabe ayush but may need furth er confi rmati on Not Available [address], [address], 04/21/2023 16:07:35 04/21/20 23 04/21/2023 HGB A1C estimated average glucose 125.5 mg/dL Not Available [address], [address], 04/21/2023 16:07:35 04/21/20 23 04/21/2023 PSA PSA 2.81 NG/mL 0.00-4 .00 Not Available [address], [address], 04/21/2023 16:50:23 12/13/19 24 12/13/2023 BASIC METAB OLIC PANEL glucose 106 mg/dL 70-100 high Not Available [address], [address], 12/13/2023 14:01:33 12/13/19 24 12/13/2023 BASIC METAB OLIC PANEL BUN 15 mg/dL 7-18 Not Available [address], [address], 12/13/2023 14:01:33 12/13/19 24 12/13/2023 BASIC METAB OLIC PANEL creatinine 1.1 mg/dL 0.8-1. 3 Not Available [address], [address], 12/13/2023 14:01:33 12/13/19 24 12/13/2023 BASIC METAB OLIC PANEL B/C 13.6 ratio Not Available [address], [address], 12/13/2023 14:01:33 12/13/19 24 12/13/2023 BASIC METAB OLIC PANEL GFR >=60ML /MIN mL/mi n normal >=60m L/min - Andreina l or midly reduc ed <60mL /min- Decre ased kidne y funct ion <15mL /min - Kidne y failu re [facility] calcu lates estim ated Glome rular Filtr ation Rate (eGFR ) using the Chron ic Kidne y Disea se Epide miolo gy Colla borat ion (CKD- EPI) Equat ion (Stefany r et. al 2020) as recom gillian d by the Natio nal Kidne y Found ation . eGFR is based on age, serum creat inine , and sex. CKD-E PI does not calcu late eGFR by race, does not apply to child lane (age <18 years ), and shoul d not be used in pregn julisa. Not Available [address], [address], 12/13/2023 14:01:33 12/13/19 24 12/13/2023 BASIC METAB OLIC PANEL sodium 142 mmol/ L 136-14 5 Not Available [address], [address], 12/13/2023 14:01:33 12/13/19 24 12/13/2023 BASIC METAB OLIC PANEL potassium 4.2 mmol/ L 3.5-5. 1 Not Available [address], [address], 12/13/2023 14:01:33 12/13/19 24 12/13/2023 BASIC METAB OLIC PANEL chloride 102 mmol/ L 96-107 Not Available [address], [address], 12/13/2023 14:01:33 12/13/19 24 12/13/2023 BASIC METAB OLIC PANEL anion gap 11.6 5.0-15 .0 Not Available [address], [address], 12/13/2023 14:01:33 12/13/19 24 12/13/2023 BASIC METAB OLIC PANEL CO2 28 mmol/ L 21-32 Not Available [address], [address], 12/13/2023 14:01:33 12/13/19 24 12/13/2023 BASIC METAB OLIC PANEL calcium 9.0 mg/dL 8.5-10 .3 Not Available [address], [address], 12/13/2023 14:01:33 05/14/19 25 05/14/2024 HGB A1C hemoglobin A1C 5.8 % 4.8-6. 0 Goal: <7% in Patie nts with Diabe ayush An A1c betwe en 5.7-6 .4% is ident ified as pre-d iabet es and sugge sts risk for progr essio n to diabe ayush Two a1c value s of 6.5% or highe r is consi stent with a diagn osis of diabe ayush but may need furth er confi rmati on Not Available [address], [address], 05/14/2024 14:14:15 05/14/19 25 05/14/2024 HGB A1C estimated average glucose 119.8 mg/dL Not Available [address], [address], 05/14/2024 14:14:15 05/14/19 25 05/15/2024 BASIC METAB OLIC PANEL glucose 112 mg/dL 70-100 high Not Available [address], [address], 05/15/2024 10:45:27 05/14/19 25 05/15/2024 BASIC METAB OLIC PANEL BUN 20 mg/dL 7-18 high Not Available [address], [address], 05/15/2024 10:45:27 05/14/19 25 05/15/2024 BASIC METAB OLIC PANEL creatinine 1.2 mg/dL 0.8-1. 3 Not Available [address], [address], 05/15/2024 10:45:27 05/14/19 25 05/15/2024 BASIC METAB OLIC PANEL B/C 16.7 ratio Not Available [address], [address], 05/15/2024 10:45:27 05/14/19 25 05/15/2024 BASIC METAB OLIC PANEL GFR >=60ML /MIN mL/mi n normal >=60m L/min - Andreina l or midly reduc ed <60mL /min- Decre ased kidne y funct ion <15mL /min - Kidne y failu re [facility] calcu lates estim ated Glome rular Filtr ation Rate (eGFR ) using the Chron ic Kidne y Disea se Epide miolo gy Colla borat ion (CKD- EPI) Equat ion (Stefany r et. al 2020) as recom gillian d by the [facility] . eGFR is based on age, serum creat inine , and sex. CKD-E PI does not calcu late eGFR by race, does not apply to child lane (age <18 years ), and shoul d not be used in pregn julisa. Not Available [address], [address], 05/15/2024 10:45:27 05/14/19 25 05/15/2024 BASIC METAB OLIC PANEL sodium 144 mmol/ L 136-14 5 Not Available [address], [address], 05/15/2024 10:45:27 05/14/19 25 05/15/2024 BASIC METAB OLIC PANEL potassium 4.2 mmol/ L 3.5-5. 1 Not Available [address], [address], 05/15/2024 10:45:27 05/14/19 25 05/15/2024 BASIC METAB OLIC PANEL chloride 105 mmol/ L 96-107 Not Available [address], [address], 05/15/2024 10:45:27 05/14/19 25 05/15/2024 BASIC METAB OLIC PANEL anion gap 10.4 5.0-15 .0 Not Available [address], [address], 05/15/2024 10:45:27 05/14/19 25 05/15/2024 BASIC METAB OLIC PANEL CO2 29 mmol/ L 21-32 Not Available [address], [address], 05/15/2024 10:45:27 05/14/19 25 05/15/2024 BASIC METAB OLIC PANEL calcium 8.8 mg/dL 8.5-10 .3 Not Available [address], [address], 05/15/2024 10:45:27 05/14/19 25 05/15/2024 LIPID PANEL cholesterol 139 mg/dL <200 mg/dl Ric able 200-2 39 mg/dl Borde rline High >240 mg/dl High Not Available [address], [address], 05/15/2024 10:45:29 05/14/19 25 05/15/2024 LIPID PANEL triglyceride s 79 mg/dL <150 mg/dL Andreina l 150-1 99 mg/dL Borde rline High 200-4 99 mg/dL High >500 mg/dL Very High Not Available [address], [address], 05/15/2024 10:45:29 05/14/19 25 05/15/2024 LIPID PANEL direct HDL 51 mg/dL <40 mg/dl - Major Risk for CHD >60 mg/dl - Negat merlyn Risk for CHD Not Available [address], [address], 05/15/2024 10:45:29 05/14/19 25 05/15/2024 LDL - CALCU LATED LDL - calculated 72 RISK CATEG ORY LDL GOAL _ CHD or CHD Risk Equiv alent s <100 mg/dl (10-y ear risk >20%) 2+ Risk Facto rs <130 mg/dl (10-y ear risk <= 20%) 0-1 Risk Facto r? <160 mg/dl ? Almos t all peopl e with 0-1 risk facto r have a 10 year risk <10%, thus 10 year risk asses ment in peopl e with 0-1 risk facto r is not yi sanchez. Not Available [address], [address], 05/15/2024 10:45:30 06/21/19 24 06/21/2023 US, abdom en, limit ed No observ ation record ed. [email or web address] [facility] [address] [place] [address] [place], [address], 06/23/2023 09:39:34 01/09/20 24 01/09/2024 US, abdom en, limit ed No observ ation record ed. [email or web address] [facility] [address] [place] [address] [place], [address], 01/10/2024 14:23:11 Result Notes None recorded. 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 Active 2016 Ramona Dunn MD [address] [place] [address], [phone] , [facility] 7 18:02:48 Blood glucose outside referenc e range 515735538 Active 2018 Giles Downey NP [address] [place] [address], [phone] , [facility] 9 15:58:49 Mixed hyperlip idemia 201420489 Active 2000 Ramona Dunn MD [address] [place] [address], [phone] , [facility] 5 12:36:20 Impotenc e of organic origin Completed 05/20/2017 Ramona Dunn MD [address] [place] [address], [phone] , [facility] 8 10:12:54 Presbyop ia 70379141 Completed 200205/25/2012 Not Available [facility] 3 03:02:50 Gastroes ophageal reflux disease 882847230 Active 2001 Ramona Dunn MD [address] [place] [address], [phone] , [facility] 5 12:36:20 Dermatop hytosis of the perianal area Completed 200105/25/2012 Not Available [facility] 3 03:02:50 Pain of shoulder region 54303589 Completed 05/25/2012 Not Available [facility] 3 03:02:50 Myopia 61941811 Completed 200205/25/2012 Not Available [facility] 3 03:02:50 Benign essentia l hyperten eduardo 9129616 Active 2000 Ramona Dunn MD [address] [place] [address], [phone] , [facility] 5 12:36:20 Astigmat ism 54893621 Completed 200511/11/2009 Not Available [facility] 3 03:02:50 Umbilica l hernia 825161601 Completed 05/25/2012 Not Available [facility] 3 03:02:50 Actinic keratosi s 519874341 Completed 200105/25/2012 Not Available [facility] 3 03:02:50 Pain of hip region 69786740 Completed 200205/25/2012 Not Available [facility] 3 03:02:50 Sprain of ankle 69720639 Completed 200505/25/2012 Not Available [facility] 3 03:02:50 Disorder of lipid metaboli sm 597196289 Completed 200311/11/2009 Not Available [facility] 3 03:02:50 Gastroin testinal hemorrha ge 33549331 Completed 200605/25/2012 Not Available [facility] 3 03:02:50 Conjunct ival hemorrha ge 54645610 Completed 200505/25/2012 Not Available [facility] 3 03:02:50 Measurem ent finding 108936040 Completed 200805/25/2012 Not Available [facility] 3 03:02:50 Benign neoplasm of large intestin e 51006166 Completed 200603/28/2014 Mak Ayala III, MD [address] [place] [address], [phone] , [facility] 4 13:09:59 On examinat ion - a rash Completed 05/25/2012 Not Available [facility] 3 03:02:50 Obstruct merlyn sleep apnea syndrome 73184585 Active nasal CPAP setting 16cm of H2O Giles Downey NP [address] [place] [address], [phone] , [facility] 8 17:30:43 Acute conjunct ivitis 25079151 Completed 200511/11/2009 Not Available [facility] 3 03:02:50 Divertic ulosis of colon without divertic ulitis 826665854 Completed 200603/28/2014 Mak Ayala III, MD [address] [place] [address], [phone] , [facility] 4 13:09:59 Benign prostati c hyperpla ernie 390876805 Completed 200605/25/2012 Not Available [facility] 3 03:02:50 Problem Notes None recorded. Procedures Surgical History Date Name Laterality Status Provider Name and Address Organization Details Recorded Time 05/25/19 25 Medicare Wellness Visit completed Sidra Tolbert [facility] 05/25/2024 11:18:50 04/27/19 24 Medicare Wellness Visit completed Sidra Tolbert [facility] 04/27/2023 15:44:21 10/23/19 23 Physical Activity Counselling completed JUAREZ Vargas/L, CHT [address] [place] [address], [phone], [facility] 10/20/2022 20:18:12 10/23/19 23 92378: OT Eval, Low Complexity completed JUAREZ Vargas/L, CHT [address] [place], [phone], [facility] 10/20/2022 20:18:05 03/03/20 22 Medicare Wellness Visit completed Sidra Tolbert [facility] 03/03/2022 11:12:22 03/03/20 22 Alcohol use screening completed Sidra oTlbert [facility] 03/03/2022 11:12:22 05/05/19 22 Medicare Risk for Falls Screen completed Oly Mckinney [facility] 05/05/2021 09:15:35 04/01/20 21 Tassoni - Colonoscopy completed Sterling Pacheco MD [address] [place] [address], [phone], [facility] 04/01/2021 08:13:16 02/28/20 21 Medicare Wellness Visit completed Sidra Tolbert [facility] 02/27/2021 14:24:20 02/28/20 21 Alcohol use screening completed Sidra Tolbert [facility] 02/27/2021 14:24:20 01/16/20 20 Medicare Wellness Visit completed Sidra Tolbert [facility] 01/16/2020 08:30:52 01/16/20 20 prevention-cardiov ascular risk reduction counseling completed Sidra Tolbert [facility] 01/16/2020 08:30:52 01/16/20 20 prevention-annual alcohol misuse screening completed Sidra Tolbert [facility] 01/16/2020 08:30:52 02/14/20 19 Refraction completed Vickie Telol OD [address] [place], [address], [facility] 02/13/2019 10:15:33 05/23/19 19 Medicare Wellness Visit completed Sidra Tolbert [facility] 05/23/2018 08:28:25 05/20/19 18 Medicare Wellness Visit completed Cyrus Urena Eliz [facility] 05/20/2017 09:15:27 10/13/19 17 Medicare Wellness Visit completed Ramona Dunn MD [address] [place] [address], [phone], [facility] 10/12/2016 09:21:14 06/02/19 17 Refraction completed Vickie Tello, OD [address] [place], [phone], [facility] 06/02/2016 17:06:44 05/18/19 17 Medicare Wellness Visit completed Katey Guzman [facility] 05/18/2016 14:00:02 03/22/20 16 Tassoni - Colonoscopy completed Sterling Pacheco MD [address] [place] [address], [phone], [facility] 03/22/2016 11:24:21 03/22/20 16 Tassoni - EGD completed Sterling Pacheco MD [address] [place] [address], [phone], [facility] 03/22/2016 11:25:35 02/07/20 13 Corticosteroid Injection completed Mak Ayala III, MD [address] [place] [address], [phone], [facility] 02/06/2013 15:25:29 01/18/20 12 Treatment and Advice completed Jazmyne Cortes, OT [address] [place], [phone], [facility] 01/18/2012 09:49:15 04/27/19 12 Toenail Avulsion completed Mak Ayala III, MD [address] [place] [address], [phone], [facility] 04/28/2011 13:12:00 06/08/19 07 completed Not Available [facility] 03/11/2011 06:05:52 Imaging Results None recorded. Procedure Notes None recorded. Medical Equipment None Reported. Allergies No known drug allergies Medications Name Sig Start Date Stop Date Status Note LastModified by Organization Details LastModified Time culturelle capsule ONE PO DAILY 02/27 completed Not Available Not Available Not Available celecoxib 200 mg capsule 05/23 completed Not Available Not Available Not Available amoxicilli n 500 mg capsule TAKE 4 CAPSULES 1 HOUR PRIOR TO DENTAL PROCEDURE active Not Available Not Available No t Available prednisone 10 mg tablet Take 4 pills by mouth for 4 days, then 3 pills by mouth for 3 days, then 2 pills by mouth for 2 days, then 1 pill by mouth for 2 days. 04/27 completed Not Available Not Available Not Available doxycyclin e hyclate 100 mg capsule 01/15 completed Not Available Not Available Not Available atorvastat in 20 mg tablet TAKE 1 TABLET BY MOUTH DAILY 05/20 completed Not Available Not Available Not Available atorvastat in 10 mg tablet TAKE 1 TABLET BY MOUTH EVERY DAY 2024 active Not Available Not Available Not Avai lable lisinopril 20 mg tablet Take 1 tablet every day by oral route. 02/27 completed Not Available Not Available Not Available prednisone 20 mg tablet ONE TAB TWICE A DAY FOR FOUR DAYS ,THEN ONCE A DAY FOR FOUR DAYS 08/25 completed Not Available Not Available Not Available Diflucan 150 mg tablet Take by oral route one weekly. 2012 active Not Available Not Available Not Avai lable diphenoxyl ate-atropi ne 2.5 mg-0.025 mg tablet Take 2 tablets 4 times a day by oral route. 08/31 completed Not Available Not Available Not Available potassium chloride ER 10 mEq tablet,ext ended release 05/23 completed Not Available Not Available Not Available aspirin 81 mg tablet,del ayed release Take 1 tablet every day by oral route. active Not Available Not Available No t Available triamcinol one acetonide 0.1 % topical cream MIX WITH CERAVE MOISTURIZ ING CREAM. APPLY TO ARMS LEGS TORSO AND GROIN AREA DAILY NEEDED. active Not Available Not Available No t Available pantoprazo le 20 mg tablet,del ayed release TAKE 1 TABLET BY MOUTH EVERY OTHER DAY 08/25 completed Not Available Not Available Not Available ketorolac 0.5 % eye drops INSTILL 1 DROP IN RIGHT EYE THREE TIMES A DAY FOR THREE WEEKS FOLLOWING CATARACT SURGERY 05/25 completed Not Available Not Available Not Available doxycyclin e monohydrat e 100 mg capsule Take2 caps today only 10/12 completed Not Available Not Available Not Available triamcinol one acetonide 0.1 % topical ointment Apply a thin film to the affected skin areas by topical route 2 timesper day 2009 active Not Available Not Available Not Avai lable lisinopril 10 mg tablet TAKE 1 TABLET BY MOUTH DAILY 07/16 completed Not Available Not Available Not Available Culturelle 10 billion cell capsule Take 1 capsule every day by oral route for 90 days. 10/19 completed Not Available Not Available Not Available hydrochlor othiazide 25 mg tablet TAKE 1 TABLET BY MOUTH EVERY DAY 2024 active Not Available Not Available Not Avai lable Viagra 100 mg tablet Take 1 tablet every day by oral route. 2008 active Not Available Not Available Not Avai lable warfarin 1 mg tablet 05/23 completed Not Available Not Available Not Available methylpred nisolone 4 mg tablets in a dose pack TAKE DIRECTED 03/03 completed Not Available Not Available Not Available lisinopril 40 mg tablet TAKE 1 TABLET BY MOUTH EVERY DAY 2024 active Not Available Not Available Not Avai lable doxycyclin e hyclate 100 mg tablet Take 2 tablets once 01/15 completed Not Available Not Available Not Available oxycodone 5 mg tablet TAKE 1 TO 2 TABLETS BY MOUTH EVERY 4 HOURS NEEDED FOR PAIN 05/23 completed Not Available Not Available Not Available Adult Low Dose Aspirin 81 mg tablet 2006 active Take 1.00 tabs daily Not Available Not Available Not Available omeprazole active Not Available Not Av ailable Not Available Vicodin 5 mg-300 mg tablet Take 1-2 TABLET EVERY 4 HOURS by oral route for hip pain 2012 active Not Available Not Available Not Avai lable Vitals Date Recorded Body height Body mass index (BMI) Body weight Oxygen saturation Oxygen saturation in Arterial blood by Pulse oximetry Heart rate Systolic blood pressure Diastolic blood pressure Provider Name and Address Organization Details Last Updated DateTime 4 184.15 cm 30.9 kg/m2 918613. 54 g 97 % 97 % 63 /min 118 mm[Hg] 76 mm[Hg] Sidra Tolbert [facility] 4 15:49:20 Date Recorded Body height Body mass index (BMI) Body weight Heart rate Oxygen saturation Oxygen saturation in Arterial blood by Pulse oximetry Systolic blood pressure Diastolic blood pressure Provider Name and Address Organization Details Last Updated DateTime 5 184.15 cm 30.4 kg/m2 705195. 27 g 64 /min 98 % 98 % 114 mm[Hg] 70 mm[Hg] Sidra Tolbert [facility] 5 11:23:46 Date Recorded Body height Heart rate Oxygen saturation Oxygen saturation in Arterial blood by Pulse oximetry Systolic blood pressure Diastolic blood pressure Provider Name and Address Organization Details Last Updated DateTime 4 184.15 cm 64 /min 99 % 99 % 128 mm[Hg] 80 mm[Hg] Priscamyra Wan [facility] 4 09:35:29 Date Recorded Body height Body mass index (BMI) Body weight Heart rate Oxygen saturation Oxygen saturation in Arterial blood by Pulse oximetry Systolic blood pressure Diastolic blood pressure Provider Name and Address Organization Details Last Updated DateTime 4 184.15 cm 32 kg/m2 373989. 28 g 66 /min 97 % 97 % 126 mm[Hg] 74 mm[Hg] Sidra Tolbert [facility] 4 10:39:21 Date Recorded Body height Body mass index (BMI) Body weight Heart rate Oxygen saturation Oxygen saturation in Arterial blood by Pulse oximetry Systolic blood pressure Diastolic blood pressure Provider Name and Address Organization Details Last Updated DateTime 4 184.15 cm 30.1 kg/m2 965365. 28 g 68 /min 98 % 98 % 128 mm[Hg] 72 mm[Hg] PHILOMENA Elliott [facility] 4 09:07:18 Social History Question Answer Notes LastModified by Organizat ion Details LastModified Time Tobacco Smoking Status Never Smoker 02/27/24 PHILOMENA Elliott [facility] 02/27/2024 09:03:47 Do You Have An Advance Directive? No Information Given 05/25/2012 Information not available 11/11/2009 Do You Wear A Helmet When Biking? Yes Information not available 09/11/2014 What Is Your Level Of Caffeine Consumption? Heavy 2 Cups Daily Information not available 09/11/2014 How Much Tobacco Do You Chew? None Information not available 09/11/2014 What Type Of Diet Are You Following? REGULAR Healthy Information not available 09/11/2014 Education Post Graduate Information not available 09/11/2014 Have There Been Any Changes To Your Family Or Social Situation? No [email or web address] Information not available 02/27/2021 How Many Days In The Past Year Have You Had A Heavy Drinking Consumption (4+ Female, 5+ Male)? 0 Information not available 05/25/2012 Are There Any Guns Present In Your Home? No Information not available 09/11/2014 Do You Use Insect Repellent Routinely? No [email or web address] Information not available 02/27/2021 Live Alone Or With Others? With Others Information not available 03/11/2011 Patient Has Health Care Proxy Signed And In Chart No 10/05/17 Paperwork Given To Pt. radha Information not available 10/05/2017 CCM Consent Discussion 05/23/2018 [email or web address] Information not available 05/24/2018 Marital Status Information not available 03/11/2011 Mosquito Repellent Used Routinely Yes Information not available 09/11/2014 What Was The Date Of Your Most Recent Tobacco Screening? 02/27/2024 02/27/24MV [email or web address] Information not available 02/27/2024 How Many Children Do You Have? 3 Information not available 09/11/2014 What Is Your Relationship Status? [email or web address] Information not available 02/27/2021 Do You Use Your Seat Belt Or Car Seat Routinely? Yes Information not available 02/27/2021 Seat Belts Used Routinely Yes Information not available 09/11/2014 Smoke Alarm In Home Yes Information not available 09/11/2014 Do You Have Smoke And Carbon Monoxide Detectors In Your Home? Yes [email or web address] Information not available 02/27/2021 Are You Passively Exposed To Smoke? No Information not available 02/27/2021 What Types Of Sporting Activities Do You Participate In? 3 Times A Week [email or web address] Information not available 02/27/2021 General Stress Level Low Information not available 09/11/2014 Do You Use Sunscreen Routinely? Yes Information not available 09/11/2014 Sex: Male Functional Status Question Answer Note LastModified by Organizat ion Details LastModified Time What is your level of alcohol consumption? Moderate 2 glass wine / week [email or web address] Information not available 04/27/2023 Are you currently employed? 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 Moderate [email or web address] Information not available 02/27/2021 Mental Status None recorded. Family History Relationship Description Onset Age of this Age Resolved Age Notes LastModified by Organization Details LastModified Time Father Heart disease 60 angina age 60 [id number] Not available 12/04/2012 03:00:09 Notes:Cardiovascular: There is no family history of hypertension. Family history is remarkable for hyperlipidemia. Father and PGF had TIA's Medical History No medical history recorded. Immunizations Vaccine Type Date Status Note Provider Nam e and Address Organization Details Recorded Time Tdap 1 completed Not Available [facility] 05/12/2019 02:30:28 Influenza, split virus, trivalent, preservative 1 completed Not Available [facility] 05/12/2019 02:39:39 Td(adult) unspecified formulation 6 completed Not Available [facility] 03/10/2011 05:21:29 zoster live 3 completed Not Available [facility] 05/12/2019 02:16:34 Influenza, split virus, trivalent, PF 3 completed Not Available [facility] 05/12/2019 02:38:04 Pneumococcal conjugate PCV 13 5 completed Not Available [facility] 05/12/2019 02:28:49 influenza, unspecified formulation 2 completed Berenice healy [facility] 07/04/2012 08:21:12 pneumococcal polysaccharide PPV23 7 completed Not Available [facility] 05/12/2019 02:26:37 influenza, unspecified formulation 5 completed Not Available [facility] 05/26/2019 02:10:40 Influenza, high-dose, trivalent, PF 7 [facility] 09:21:19 Influenza, high-dose, quadrivalent, PF 0 [facility] 09:13:06 Influenza, split virus, quadrivalent, preservative 9 [facility]/11[facility]2019 14:32:21 Influenza, high-dose, quadrivalent, PF 1 [facility] 02/27/2021 14:38:27 Td (adult), 2 Lf tetanus toxoid, preservative free, adsorbed 2 completed Carmen Carter [address] [place] [address], [address], [facility] 10/19/2021 15:21:40 COVID-19, mRNA, LNP-S, PF, 100 mcg/0.5mL dose or 50 mcg/0.25mL dose 1 [facility] 02/27/2021 14:32:03 COVID-19, mRNA, LNP-S, PF, 100 mcg/0.5mL dose or 50 mcg/0.25mL dose 1 completed [facility] 02/27/2021 14:32:15 COVID-19, mRNA, LNP-S, PF, 100 mcg/0.5mL dose or 50 mcg/0.25mL dose 1 [facility] 02/27/2021 14:32:24 COVID-19, mRNA, LNP-S, PF, 100 mcg/0.5mL dose or 50 mcg/0.25mL dose 2 completed [facility] 10/19/2021 14:47:35 Influenza, split virus, quadrivalent, preservative 2 completed [facility] 03/03/2022 11:16:54 influenza, unspecified formulation 3 [facility] 04/27/2023 15:50:30 COVID-19, mRNA, LNP-S, bivalent, PF, 50 mcg/0.5 mL or 25mcg/0.25 mL dose 4 completed Sidra Tolbert CMA null, [facility] 02/20/2024 08:46:22 Influenza, high-dose, trivalent, PF 4 completed Yumiko Gomes RMEliz null, [facility] 02/27/2024 09:05:40 COVID-19, mRNA, LNP-S, PF, karolyn-sucrose, 30 mcg/0.3 mL 4 completed PHILOMENA Elliott null, [facility] 02/27/2024 09:05:56 Influenza, high-dose, trivalent, PF 4 completed Sidra Tolbert CMA null, [facility] 05/25/2024 11:25:28 Past Encounters Encounter ID Performer Location Encounter Start Date Encounter Closed Date Diagnosis/Indication Diagnosis SNOMED-CT Code Diagnosis ICD10 Code Diagnosis Note [id number] Mak Ayala III, MD , [facility], OFFICE [address] [place] [address] 10/13/2000 08:30:00 05/15/2008 02:02:29 [id number] Mak Ayala III, MD , [facility], OFFICE [address] [place] [address] [place] [id number] 01/18/2002 09:55:00 05/15/2008 02:02:29 [id number] Mak Ayala III, MD , [facility], [address]ICE [address] [place] [address] 03/14/2002 15:48:44 05/15/2008 02:02:29 [id number] [facility] , [address] [address] 05/04/2002 13:35:40 05/15/2008 02:02:29 [id number] [facility], [address] [address] 05/10/2002 11:16:13 05/15/2008 02:02:29 [id number] Rod Osborn, OD [facility], [address] [address] 05/10/2002 10:41:17 05/15/2008 02:02:29 [id number] MD KATHERINE Domingo III, [facility], [address]ICE [address] [place] [address] 04/04/2003 13:36:32 04/04/2003 17:46:27 [id number] [facility] - [address] [place] [address] 05/01/2003 07:34:49 05/01/2003 11:03:28 [id number] Rod Osborn, OD [facility], [address] [place] [address] 07/02/2004 13:03:43 07/02/2004 14:39:19 [id number] Mak Ayala III, MD , [facility], OFFICE [address] [place] [address] 07/15/2004 14:15:15 07/16/2004 09:16:59 [id number] [facility] - [address] [place] [address] 09/08/2004 07:28:15 09/08/2004 07:28:21 [id number] [facility], [address] [place] [address] 09/17/2004 16:05:03 09/17/2004 18:19:45 [id number] [facility], [address] [place] [address] 10/01/2004 12:14:33 10/02/2004 08:00:04 [id number] Annette Gómez, OD Eye Care, [address] [address] 10/14/2005 15:03:52 05/15/2008 02:02:29 [id number] Mak Ayala III, MD , [facility], OFFICE [address] [place] [address] 11/09/2005 14:30:49 11/09/2005 17:47:39 [id number] Mak Ayala III, MD , [facility], [address]ICE [address] [place] [address] 12/28/2005 08:25:31 12/28/2005 10:57:02 [id number] Rod Osborn, OD [facility], [address] [place] [address] 03/24/2006 13:57:09 03/24/2006 15:18:47 [id number] [facility], [place] [address] 03/24/2006 16:55:06 03/24/2006 17:50:58 [id number] [facility], [facility] MOSQUEDA MD [facility], [facility] [place] [address] 06/08/2006 07:47:25 06/09/2006 09:39:30 [id number] [facility] - [facility] [place] [address] 12/29/2006 07:13:12 12/29/2006 07:13:56 [id number] Mak Ayala III, MD , [facility], OFFICE [address] [place] [address] [place] [id number] 02/14/2007 08:34:27 05/15/2008 02:02:29 [id number] Rod Osborn, Eye Care, [facility] [address] [place] [address] 03/27/2008 13:32:40 03/27/2008 14:28:41 [id number] Mak Ayala III, MD , [facility], OFFICE [address] [place] [address] [place] [id number] 07/29/2008 13:30:29 07/30/2008 09:31:26 [id number] [facility] - [facility] [place] [address] 07/11/2008 07:19:14 07/11/2008 07:19:17 [id number] Ramona Dunn MD , [facility], OFFICE [address] [place] [address] [place] [id number] 11/11/2009 09:34:00 11/11/2009 11:25:31 [id number] Mak Ayala III, MD , [facility], OFFICE [address] [place] [address] [place] [id number] 12/09/2010 08:17:54 12/09/2010 08:52:47 [id number] Mak Ayala III, MD , [facility], OFFICE [address] [place] [address] [place] [id number] 04/27/2011 10:03:14 04/27/2011 10:25:28 [id number] Sneha Paris D.O. , [facility], OFFICE [address] [place] [address] [place] [id number] 01/17/2012 09:18:49 01/17/2012 10:16:44 [id number] Jazmyne Cortes, OT Physical Therapy, [address] [place] [address] 01/18/2012 08:51:59 01/19/2012 10:40:45 [id number] Jazmyne Cortes, OT Physical Therapy, [address] [place] [address] 01/26/2012 08:53:44 01/27/2012 10:55:11 [id number] Mak Ayala III, MD , [facility], OFFICE [address] [place] [address] [place] [address] 05/25/2012 15:46:47 05/25/2012 16:44:04 [id number] Mak Ayala III, MD , [address] [place] [address] 07/04/2012 08:14:38 07/04/2012 08:42:13 [id number] Mak Ayala III, MD , [facility], [address] [place] [id number] 01/03/2013 07:55:37 01/03/2013 08:17:52 Benign essential hypertension 2294910 Blood pressure at goal Impaired f asting glycemia 725225267 [id number] Mak Ayala III, MD , [facility], [address] [place] [address] 01/23/2013 13:26:00 01/23/2013 13:58:55 Pain of hip region 47684146 Influenza vaccine needed [id number] 106 Tinea corporis 66909776 [id number] MD KATHERINE Domingo III, [facility], [address] [place] [address] 02/06/2013 14:56:23 02/06/2013 15:22:58 Pain of hip region 62246684 [id number] MD KATHERINE Domingo III, [facility], OFFICE [address] [place] [address] [place] [id number] 06/28/2013 08:14:32 06/28/2013 08:44:49 Benign essential hypertension 4556795 Blood pressure at goal Adult heal th examination [id number] see Risk Assessment and Lifestyle Change Counseling section above Counseling [id number] Gastroesop hageal reflux disease 022585620 Pain of hip region 65701796 DJD hips Impaired f asting glycemia 107305642 Obstructiv e sleep apnea syndrome 72999777 Uses CPAP [id number] Mak Ayala III, MD , [facility], OFFICE [address] [place] [id number] 02/20/2014 09:00:01 02/20/2014 09:54:02 Benign essential hypertension 8324260 Blood pressure at goal Impaired f asting glycemia 282282260 Obstructiv e sleep apnea syndrome 76794545 Uses CPAP Obesity 583535170 [id number] Mak Ayala III, MD , [facility], OFFICE [address] [place] [id number] 09/11/2014 14:47:36 09/11/2014 15:34:55 Adult health examination [id number] see Risk Assessment and Lifestyle Change Counseling section above Counseling [id number] Benign ess ential hypertension 6285546 Blood pressure at goal Blood pressure NOT at goal. Active or passive immunization 846688815 Gastroesop hageal reflux disease 361587429 Impaired f asting glycemia 037140003 Obesity 384299496 Obstructiv e sleep apnea syndrome 53601429 [id number] Ramona Dunn MD , [facility], [address]ICE [address] [place] [address] 04/09/2015 11:45:25 04/09/2015 12:44:01 Mixed hyperlipidemia 366901731 E78.2 Cholestero l is at goal in fect has been veruy low since 2006 on atorvastat in 20 plan continue indefinite ly with routine followup Cholestero l is not at goal Continue to work on diet and exercise as discussed Benign ess ential hypertension 6566265 I10 Blood pressure at goal on HCTZ and lisinopril plan continue indefinite ly with routine followup bmp and exam twice a year Screening for disorder 445933236 Z11.59 Gastroesop hageal reflux disease 460421788 K21.9 otc PPI helpful every other day Impaired f asting glycemia 024922629 R73.01 stable 110 past 5 years Obesity 416010807 E66.9 watches wt and exercises using phone ross Obstructiv e sleep apnea syndrome 66586636 G47.33 CPAP helpful, when used [id number] Sterling Pacheco MD [facility], [facility] [address] [place] [address] 03/22/2016 09:36:58 03/22/2016 14:37:21 [id number] Ramona Dunn MD , [facility], [address]ICE [address] [place] [address] 05/18/2016 13:51:06 05/18/2016 15:12:17 Adult health examination 869240119 Z00.00 see Risk Assessment and Lifestyle Change Counseling section above Counseling 706910339 Z71 .9 Mixed hyperlipidemia 267 384168 E78.2 agreed to hold atorvastat in and repeat lipids off med. mid June Cholestero l is at goal in fact has been veruy low since 2006 on atorvastat in 20 plan continue indefinite ly with routine followup Cholestero l is not at goal Continue to work on diet and exercise as discussed Benign ess ential hypertension 7691749 I10 Blood pressure at goal on HCTZ and lisinopril plan continue indefinite ly with routine followup bmp and exam twice a year Gastroesop hageal reflux disease 745158584 K21.9 otc PPI helpful every other day Impaired f asting glycemia 815697433 R73.01 stable 110 past 5 years Obesity 690864309 E66.9 wt down significan tly, congratula tedhe exercises regularly at [employer] watches wt and exercises using phone ross Obstructiv e sleep apnea syndrome 28235982 G47.33 CPAP helpful, when usedunder imaging i found June 2003 study showing severe NANCY Loose stool 624525752 R1 9.5 eased with FODMAP diet thru [facility] his tory of Aortic aneurysm 015483414 Z82.49 brother with AAA, pt wishes screening [id number] Vickie Tello, OD [facility], [facility] [address] [facility] [place] [address] 06/02/2016 16:05:33 06/04/2016 08:44:52 Presbyopia 98272073 H52.4 [id number] Ramona Dunn MD , [facility], [address]ICE [address] [place] [address] 10/12/2016 08:50:28 10/12/2016 11:55:29 Mixed hyperlipidemia 109203692 E78.2 lipids unchanged and very low. on ator 10cont indefinite ly agreed to hold atorvastat in and repeat lipids off med. mid June Cholestero l is at goal in fact has been very low since 2007 on atorvastat in 20 plan continue indefinite ly with routine followup Cholestero l is not at goal Continue to work on diet and exercise as discussed Benign ess ential hypertension 0564142 I10 Blood pressure at goal below 150/90 on HCTZ and lisinopril , now 132/72 plan continue indefinite ly with routine followup bmp and exam twice a year Gastroesop hageal reflux disease 311450658 K21.9 otc PPI helpful every other dayEGD 04/2016 nl , no barrettsco lo with bx's neg as well , [facility]. Impaired f asting glycemia 265629896 R73.01 stable 110 past 6 years Obesity 918017342 E66.9 09/2016 wt loss ongoing, 14 pound wt loss past 18 months. wt down significan tly, congratula tedhe exercises regularly at [employer] watches wt and exercises using phone ross Obstructiv e sleep apnea syndrome 26906021 G47.33 CPAP helpful, when usedunder imaging i found June 2003 study showing severe NANCY Loose stool 900041881 R1 9.5 eased with FODMAP diet thru [facility] his tory of Aortic aneurysm 123097011 Z82.49 brother with AAA, pt wishes screening. 04/2016 ultrasound Hepatic fibrosis 0649416 2 K74.0 by biopsy stage 2-3see hemochroma tosis, below Steatohepatitis 64969387 2 K75.81 by biopsysee hemochroma tosis, below Hereditary hemochromatosis 27342444 E83.110 diagnosed angel 06-10-2016, studies completed 07/22/16 notebiopsy 06/30/16 IR at [facility] confirmed, fe index 0.8, 60 % fe satheteroz ygous H63D gene plan to phlebotomi ze to make fe deficient, lose wt and complete etoh abstinence to decrease RF's for failure.fe rritin fell 1263, to 501 with phlebotomy , sat 60 to 34%f/u Bx planned 2018 Active or passive immunization 736250756 Z23 [id number] Ramona Dunn MD , [facility], [address]ICE [address] [place] [address] 05/20/2017 09:07:56 05/20/2017 10:36:20 Adult health examination 262758464 Z00.00 [employer] for CPAP supplies. see Risk Assessment and Lifestyle Change Counseling section above Counseling 648915145 Z71 .9 Mixed hyperlipidemia 267 150694 E78.2 lipids unchanged and very low. on ator 10cont indefinite ly agreed to hold atorvastat in and repeat lipids off med. mid June Cholestero l is at goal in fact has been very low since 2006 on atorvastat in 20 plan continue indefinite ly with routine followup Cholestero l is not at goal Continue to work on diet and exercise as discussed Benign ess ential hypertension 7479678 I10 Blood pressure at goal below 150/90 on HCTZ and lisinopril , now 132/72, 138/70 plan continue indefinite ly with routine followup bmp and exam twice a year Gastroesop hageal reflux disease 381864003 K21.9 otc PPI helpful every other dayEGD 04/2016 nl , no barrettsco lo with bx's neg as well , [facility]. Impaired f asting glycemia 238935438 R73.01 stable 110 past 7 years Obesity 144350927 E66.9 04/2017 unchanged net, past year.6201 7 wt loss ongoing, 14 pound wt loss past 18 months. wt down significan tly, congratula tedhe exercises regularly at [employer] watches wt and exercises using phone ross Obstructiv e sleep apnea syndrome 52505907 G47.33 He has documented NANCY form 2004 study, he would benefit from CPAPneeds new equipment. CPAP helpful, when usedunder imaging i found June 2003 study showing severe NANCY Loose stool 688840026 R1 9.5 eased with FODMAP diet thru [facility] resolved. Family his tory of Aortic aneurysm 008492008 Z82.49 brother with AAA, pt wishes screenin04/2016 nl ultrasound Hepatic fibrosis 0211020 2 K74.0 by biopsy stage 2-3see hemochroma tosis, below Steatohepatitis 91902795 2 K75.81 by biopsysee hemochroma tosis, below Hereditary hemochromatosis 68687457 E83.110 ferritin and sat at goal, followed Christin.go al HCT <40, ferritin <30, Fe sat <20, Fe ,45followi ng heavy monthly phlebotomy fall 2016 diagnosed christin 06-10-2016, studies completed 07/22/16 notebiopsy 06/30/16 IR at [facility] confirmed, fe index 0.8, 60 % fe satheteroz ygous H63D gene variant plan to phlebotomi ze to make fe deficient, lose wt and complete etoh abstinence to decrease RF's for failure.fe rritin fell 1263, to 501 with phlebotomy , sat 60 to 34%f/u Bx planned 2018 [id number] Ramona Dunn MD , [facility], [address]ICE [address] [place] [address] 10/05/2017 09:03:54 10/05/2017 09:59:47 Soft tissue swelling of knee joint 954159450 M25.469 09/201883385cai pates and examines as large Bakers cystdx and plan discussed. longitudin al rubbery tender fullness left knee posteriome dially and along 'semi' tendons there is fullnessma neuvers neghe has loss extension by 15 degrees and holds knee stiff.no rubor or calorTold we would recommend percutaneo us drainage by Amari Sellers if diagnosis confirmed and is amenable to surgery [id number] Ramona Dunn MD , [facility], [address]ICE [address] [place] [address] 11/09/2017 07:59:34 11/09/2017 10:22:24 Soft tissue swelling of knee joint 536824008 M25.469 09/2017 this is arthritis, as he had been told 20 year ago here that may need new knee in 10 , he will f/u with MIREYA Barksdale ates and examines as large Bakers cyst, but US neg- refer ortho ?400 mg 3x a day ibuprofen dx and plan discussed. longitudin al rubbery tender fullness left knee posteriome dially and along 'semi' tendons there is fullnessma neuvers neghe has loss extension by 15 degrees and holds knee stiff.no rubor or calorTold we would recommend percutaneo us drainage by Amari Sellers if diagnosis confirmed and is amenable to surgery Mixed hyperlipidemia 267 719986 E78.2 lipids unchanged and very low. on ator 10cont indefinite ly agreed to hold atorvastat in and repeat lipids off med. mid June Cholestero l is at goal in fact has been very low since 2007 on atorvastat in 20 plan continue indefinite ly with routine followup Cholestero l is not at goal Continue to work on diet and exercise as discussed Benign ess ential hypertension 2347031 I10 Blood pressure at goal below 150/90 on HCTZ and lisinopril 10, plan continue indefinite ly with routine followup bmp and exam twice a year Gastroesop hageal reflux disease 457207195 K21.9 otc PPI helpful every other dayEGD 04/2016 nl , no barrettsco lo with bx's neg as well , [facility]. Impaired f asting glycemia 138377962 R73.01 stable 110 past 7 years Obesity 278797617 E66.9 10/2017 stable over many years overall. 04/2017 unchanged net, past year. 7 wt loss ongoing, 14 pound wt loss past 18 months. wt down significan tly, congratula tedhe exercises regularly at [employer] watches wt and exercises using phone ross Obstructiv e sleep apnea syndrome 19424561 G47.33 had [employer] for cpap supplies.n eeds to see sleep med for Rx He has documented NANCY form 2004 study, he would benefit from CPAPneeds new equipment. CPAP helpful, when usedunder imaging i found June 2003 study showing severe NANCY Loose stool 537846137 R1 9.5 eased with FODMAP diet thru [facility] resolved. Family his tory of Aortic aneurysm 394105280 Z82.49 brother with AAA, pt wishes screenin04/2016 nl ultrasound Hepatic fibrosis 8761382 2 K74.0 by biopsy stage 2-3see hemochroma tosis, below Steatohepatitis 90314966 2 K75.81 by biopsysee hemochroma tosis, below Hereditary hemochromatosis 71000961 E83.110 HCT, ferritin (18) and sat (14%)at goal, followed Christin.go al HCT <40, ferritin <30, Fe sat <20, Fe ,45followi ng heavy q 2 wk, later monthly phlebotomy fall 2016, now 04/28 annually diagnosed tassoni 06-10-2016, studies completed 07/22/16 notebiopsy 06/30/16 IR at [facility] confirmed, fe index 0.8, 60 % fe satheteroz ygous H63D gene variant plan to phlebotomi ze to make fe deficient, lose wt and complete etoh abstinence to decrease RF's for failure.fe rritin fell 1263, to 501 with phlebotomy , sat 60 to 34%f/u Bx planned 2018 [id number] Ramona Dunn MD , [facility], OFFICE [address] [place], [place] [address] 05/23/2018 08:18:22 05/23/2018 09:25:42 Adult health examination 103394882 Z00.00 see Risk Assessment and Lifestyle Change Counseling section above Counseling 605269650 Z71 .9 Depression screening 171 751591 Z13.89 depression screening tool administer ed, entered into emr, scored and discussed, time greater than 7.5 minutes Soft tissu e swelling of knee joint 036018671 M25.469 04/2017 slow recovery post op knee LTKRremain s swollen andwarm, loss ext 30 degrees. 09/2017 this is arthritis, as he had been told 20 year ago here that may need new knee in , he will f/u with [facility]RE[facility]ks[facility] ates and examines as large Bakers cyst, but US neg- refer ortho ?400 mg 3x a day ibuprofen dx and plan discussed. longitudin al rubbery tender fullness left knee posteriome dially and along 'semi' tendons there is fullnessma neuvers neghe has loss extension by 15 degrees and holds knee stiff.no rubor or calorTold we would recommend percutaneo us drainage by Amari Sellers if diagnosis confirmed and is amenable to surgery Mixed hyperlipidemia 267 019507 E78.2 lipids unchanged and very low. on ator 10LDL below 90 cont indefinite ly agreed to hold atorvastat in and repeat lipids off med. mid June Cholestero l is at goal in fact has been very low since 2006 on atorvastat in plan continue indefinite ly with routine followup Cholestero l is not at goal Continue to work on diet and exercise as discussed Benign ess ential hypertension 5437445 I10 Blood pressure at goal below 150/90 on HCTZ and lisinopril 10, plan continue indefinite ly with routine followup bmp and exam twice a year 120/80 Gastroesop hageal reflux disease 952849131 K21.9 otc PPI helpful every other dayEGD 04/2016 nl , no barrettsco lo with bx's neg as well , [facility]. Impaired f asting glycemia 684345220 R73.01 stable 110 past 7 years Obesity 443144403 E66.9 stable over many years overall. 04/2017 unchanged net, past year. 7 wt loss ongoing, 14 pound wt loss past 18 months. wt down significan tly, congratula tedhe exercises regularly at [employer] watches wt and exercises using phone ross Obstructiv e sleep apnea syndrome 09572652 G47.33 had [employer] for cpap supplies.n eeds to see sleep med for Rx He has documented NANCY form 2003 study, he would benefit from CPAPneeds new equipment. CPAP helpful, when usedunder imaging i found June 2003 study showing severe NANCY Loose stool 023914324 R1 9.5 eased with FODMAP diet thru [facility] resolved. Family his tory of Aortic aneurysm 952795657 Z82.49 brother with AAA, pt wishes screenin04/2016 ultrasound Hepatic fibrosis 1613076 2 K74.0 advanced fibrosis by fibrotest. inactive, LFTS's normal. by biopsy stage 2-3see hemochroma tosis, below Steatohepatitis 27683445 2 K75.81 by biopsysee hemochroma tosis, below Hereditary hemochromatosis 21214774 E83.110 HCT, ferritin (18) and sat (14%)at goal, followed Christin.go al HCT <40, ferritin <30, Fe sat <20, Fe ,45followi ng heavy q 2 wk, later monthly phlebotomy fall 2016, now every 3 months diagnosed [facility] 06-10-2016, studies completed 07/22/16 notebiopsy 06/30/16 IR at [facility] confirmed, fe index 0.8, 60 % fe satheteroz ygous H63D gene variant plan to phlebotomi ze to make fe deficient, lose wt and complete etoh abstinence to decrease RF's for failure.fe rritin fell 1263, to 501 with phlebotomy , sat 60 to 34%f/u Bx planned 2018 Screening for malignant neoplasm of prostate 959986772 Z12.5 [id number] Ramona Dunn MD , [facility], [address] [place], [place] [address] 01/02/2019 07:57:50 01/02/2019 08:59:59 Mixed hyperlipidemia 650389933 E78.2 lipids unchanged and very low. on ator 10cont indefinite ly agreed to hold atorvastat in and repeat lipids off med. mid June Cholestero l is at goal in fact has been very low since 2006 on atorvastat in 20 plan continue indefinite ly with routine followup Cholestero l is not at goal Continue to work on diet and exercise as discussed Benign ess ential hypertension 5423826 I10 Blood pressure at goal below 140/90 on HCTZ and lisinopril 10, plan continue indefinite ly with routine followup bmp and exam twice a year Gastroesop hageal reflux disease 049069813 K21.9 otc PPI helpful every other dayEGD 04/2016 nl , no barrettsco lo with bx's neg as well , [facility]. Impaired f asting glycemia 599895168 R73.01 stable 110 past 7 years Obesity 887605741 E66.9 stable over many years overall. 04/2017 unchanged net, past year. 7 wt loss ongoing, 14 pound wt loss past 18 months. wt down significan tly, congratula tedhe exercises regularly at [employer] watches wt and exercises using phone ross Obstructiv e sleep apnea syndrome 80255191 G47.33 11/2017 polysomnog zoila AHI 69 fell to 1 woth CPAP titration 01/2018pt states he doesnt use it and feels the same. c.o nasal congestion and nasal coldness He has documented NANCY form 2004 study, he would benefit from CPAPneeds new equipment. CPAP helpful, when usedunder imaging i found June 2003 study showing severe NANCY Loose stool 137419973 R1 9.5 chronic. eased with FODMAP diet thru [facility] resolved. Family his tory of Aortic aneurysm 071363043 Z82.49 brother with AAA, pt wishes screenin04/2016 nl ultrasound Hepatic fibrosis 8037454 2 K74.0 13. Hepatic fibrosis - advanced fibrosis by fibrotest. inactive, LFTS's normal. 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.p hlebotomie s to keep at goal, 3 planned in year 578773/93/ 23 % sat *HCT, ferritin (18) and sat (14%)at goal, followed Christin.go al HCT <40, ferritin <30, Fe sat <20, Fe ,45followi ng heavy q 2 wk, later monthly phlebotomy fall 2016, now 1/4 annually diagnosed christin 06-10-2016, studies completed 07/22/16 notebiopsy 06/30/16 IR at [facility] confirmed, fe index 0.8, 60 % fe satheteroz ygous H63D gene variant plan to phlebotomi ze to make fe deficient, lose wt and complete etoh abstinence to decrease RF's for failure.fe rritin fell 1263, to 501 with phlebotomy , sat 60 to 34%f/u Bx planned 2018 [id number] Vickie Tello, OD Eye Care, [address] [address] 02/13/2019 10:01:46 02/13/2019 11:59:15 Presbyopia 38887302 H52.4 Astigmatism 61163913 H52 .209 Bilateral cataracts 9572 2003 H26.9 [id number] Ramona Dunn MD , [facility], [address]ICE [address] [place] [address] 08/20/2019 08:02:01 08/20/2019 09:42:32 Mixed hyperlipidemia 892667135 E78.2 lipids unchanged and very low. on ator 10cont indefinite ly agreed to hold atorvastat in and repeat lipids off med. mid June Cholestero l is at goal in fact has been very low since 2006 on atorvastat in 20 plan continue indefinite ly with routine followup Cholestero l is not at goal Continue to work on diet and exercise as discussed Benign ess ential hypertension 5198326 I10 Blood pressure at goal below 140/90 on HCTZ and lisinopril 10, plan continue indefinite ly with routine followup bmp and exam twice a year Gastroesop hageal reflux disease 033547547 K21.9 otc PPI helpful every other dayEGD 04/2016 nl , no barrettsco lo with bx's neg as well , [facility]. Impaired f asting glycemia 412680470 R73.01 stable 110 past 7 years Obesity 668310768 E66.9 stable over many years overall. 04/2017 unchanged net, past year.6/201 7 wt loss ongoing, 14 pound wt loss past 18 months. wt down significan tly, congratula tedhe exercises regularly at [employer] watches wt and exercises using phone ross Obstructiv e sleep apnea syndrome 53249826 G47.33 11/2017 polysomnog zoila AHI 69 fell to 1 woth CPAP titration 01/2018pt states he doesnt use it and feels the same. c.o nasal congestion and nasal coldness He has documented NANCY form 2003 study, he would benefit from CPAPneeds new equipment. CPAP helpful, when usedunder imaging i found June 2003 study showing severe NANCY Loose stool 594478972 R1 9.5 chronic. eased with FODMAP diet thru [facility] resolved. Family his tory of Aortic aneurysm 622247181 Z82.49 brother with AAA, pt wishes screenin04/2016 nl ultrasound Hepatic fibrosis 0560011 2 K74.0 13. Hepatic fibrosis - advanced fibrosis by fibrotest. inactive, LFTS's normal. by biopsy stage (2-)3 see hemochroma tosis, below Steatohepatitis 00886258 2 K75.81 by biopsyNASH , followed Christin see hemochroma tosis, below Hereditary hemochromatosis 77825826 E83.110 phlebotomi es down to 3 times a year iron index 0.8stage 2-3heteroz ygous for histidine 63 D mutation.p hlebotomie s to keep at goal, 3 planned in year 447292/93/ 23 % sat *HCT, ferritin (18) and sat (14%)at goal, followed Christin.go al HCT <40, ferritin <30, Fe sat <20, Fe ,45followi ng heavy q 2 wk, later monthly phlebotomy fall 2016, now 04/28 annually diagnosed christni 06-10-2016, studies completed 3/30/17 notebiopsy 06/30/16 IR at [facility] confirmed, fe index 0.8, 60 % fe satheteroz ygous H63D gene variant plan to phlebotomi ze to make fe deficient, lose wt and complete etoh abstinence to decrease RF's for failure.fe rritin fell 1263, to 501 with phlebotomy , sat 60 to 34%f/u Bx planned 2018 [id number] RENZO Hook , [facility], [address] [place] [address] 09/25/2019 08:07:55 09/25/2019 09:04:48 Tick bite 44729753 W57.XXXA Discussed current knowledge of tick related illness.Pt meets criteria for prophylaxi s, no need for full course of lyme tx, reviewed this with patient.Gi nicole no symptoms of systemic illness, we will treat with doxycyclin e 200 mg prophylact ically. Patient instructed to monitor for any new rash, neck pain, fevers, headaches, or body aches for the next 6 weeks, and call should these occur. Call/retur n to office with any concerns. Pt understand s and agrees with plan. [id number] Ramona Dunn MD , [facility], [address]ICE [address] [place] [address] 01/16/2020 08:30:11 01/21/2020 17:01:13 Adult health examination 410959893 Z00.00 see Risk Assessment and Lifestyle Change Counseling section above Counseling 804898941 Z71 .9 including cardiovasc ular risk reduction counseling Depression screening 171 688881 Z13.89 depression screening tool administer ed, entered into emr, scored and discussed, time greater than 7.5 minutes Screening for alcohol abuse 689547068 Z13.39 Mixed hyperlipidemia 267 296668 E78.2 lipids unchanged and very low. on ator 10cont indefinite ly agreed to hold atorvastat in and repeat lipids off med. mid June Cholestero l is at goal in fact has been very low since 2006 on atorvastat in 20 plan continue indefinite ly with routine followup Cholestero l is not at goal Continue to work on diet and exercise as discussed Benign ess ential hypertension 1361284 I10 Blood pressure at goal below 140/90 on HCTZ and lisinopril 10, plan continue indefinite ly with routine followup bmp and exam twice a year Gastroesop hageal reflux disease 587348025 K21.9 otc PPI helpful every other dayEGD 04/2016 nl , no barrettsco lo with bx's neg as well , [facility]. Impaired f asting glycemia 779992602 R73.01 stable 110 past 7 years Obesity 020692636 E66.9 stable over many years overall. 04/2017 unchanged net, past year. 7 wt loss ongoing, 14 pound wt loss past 18 months. wt down significan tly, congratula tedhe exercises regularly at [employer] watches wt and exercises using phone ross Obstructiv e sleep apnea syndrome 17248469 G47.33 11/2017pt states he doesnt use it and feels the same. c.o nasal congestion and nasal coldnesspo lysomnogra m AHI 69 fell to 1 with CPAP titration 01/2018 He has documented NANCY form 2004 study, he would benefit from CPAPneeds new equipment. CPAP helpful, when usedunder imaging i found June 2003 study showing severe NANCY Loose stool 094449591 R1 9.5 chronic. eased with FODMAP diet thru [facility] resolved. Family his tory of Aortic aneurysm 361246704 Z82.49 brother with AAA, pt wishes screenin04/2016 nl ultrasound Hepatic fibrosis 8898785 2 K74.0 13. Hepatic fibrosis - advanced fibrosis by fibrotest. inactive, LFTS's normal. 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.p hlebotomie s to keep at goal, 3 planned in year / 23 % sat *HCT, ferritin (18) and sat (14%)at goal, followed Christin.go al HCT <40, ferritin <30, Fe sat <20, Fe ,45followi ng heavy q 2 wk, later monthly phlebotomy fall 2016, now 1/ annually diagnosed ursulai 06-10-2016, studies completed 07/22/16 notebiopsy 06/30/16 IR at [facility] confirmed, fe index 0.8, 60 % fe sathegretchen ygous H63D gene variant plan to phlebotomi ze to make fe deficient, lose wt and complete etoh abstinence to decrease RF's for failure.fe rritin fell 1263, to 501 with phlebotomy , sat 60 to 34%f/u Bx planned 2018 Antibiotic prophylaxis recommended 429182009 Z76.89 prophylact ic orthopedic abx have caused diarrhea. surgeon insistsbel ieves is amoxc/o diarrhea since octoberNov 2019, after last dosingCDT neg tassonifai led cipro cleansinge asing slowly with probiotics i have no other suggestion sshould change to ceph clinda or azith, he will ask if ortho Ok's [id number] Sneha Furcolo D.O. , [facility], [address] [place] [address] 02/07/2020 06:57:13 02/08/2020 16:46:21 Active or passive immunization 034203621 Z23 [id number] Ramona Dunn MD , [facility], [address] [place] [address] 07/16/2020 11:18:12 07/18/2020 12:51:54 Mixed hyperlipidemia 669191438 E78.2 lipids unchanged and very low. on ator 10cont indefinite ly agreed to hold atorvastat in and repeat lipids off med. mid June Cholestero l is at goal in fact has been very low since 2006 on atorvastat in 20 plan continue indefinite ly with routine followup Cholestero l is not at goal Continue to work on diet and exercise as discussed Benign ess ential hypertension 6323196 I10 07/16/2020 144/80 will double lisinopril to 40 mg tab Rx #90 x 3 HCTZ 25 Lisinopril 20 * vikas video 01/16/2020 lisinopril increased to 20 with new Rx as his home BP's 140 systolic asked to follow * Blood pressure at goal below 140/90 on HCTZ and lisinopril 10, plan continue indefinite ly with routine followup bmp and exam twice a year Gastroesop hageal reflux disease 249035589 K21.9 otc PPI helpful every other dayEGD 04/2016 nl , no barrettsco lo with bx's neg as well , Tassoni. Impaired f asting glycemia 258756435 R73.01 stable 110 past 7 years Obesity 381872296 E66.9 stable over many years overall. 04/2017 unchanged net, past year. 7 wt loss ongoing, 14 pound wt loss past 18 months. wt down significan tly, congratula tedhe exercises regularly at [employer] watches wt and exercises using phone ross Obstructiv e sleep apnea syndrome 64546746 G47.33 11/2017pt states he doesnt use it and feels the same. c.o nasal congestion and nasal coldnesspo lysomnogra m AHI 69 fell to 1 with CPAP titration 01/2018 He has documented NANCY form 2004 study, he would benefit from CPAPneeds new equipment. CPAP helpful, when usedunder imaging i found June 2003 study showing severe NANCY Loose stool 771173762 R1 9.5 chronic. eased with FODMAP diet thru [facility]oniurg ency resolved. Family his tory of Aortic aneurysm 281652038 Z82.49 brother with AAA, pt wishes screenin04/2016 nl ultrasound Hepatic fibrosis 1138035 2 K74.02 13. Hepatic fibrosis - advanced fibrosis by fibrotest. inactive, LFTS's normal. by biopsy stage (2-)3 see hemochroma tosis, below Steatohepatitis 25056790 2 K75.81 by biopsyNASH , followed Christin see hemochroma tosis, below Hereditary hemochromatosis 11867961 E83.110 phlebotomi es 4 times a year through Tass[facility] labs at [facility]- unsent to us he keeps a chart iron index 0.8 stage 2-3 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 phlebotomi es to keep at goal, 3 planned in 2018 44/93/23 % sat * HCT, ferritin (18) and sat (14%)at goal, followed Christin. goal HCT <40, ferritin <30, Fe sat <20, Fe ,45 following heavy q 2 wk, later monthly phlebotomy fall 2016, now 04/28 annually diagnosed christin 06-10-2016, studies completed 07/22/16 note biopsy 06/30/16 IR at [facility] confirmed, fe index 0.8, 60 % fe sat heterozygo us H63D gene variant plan to phlebotomi ze to make fe deficient, lose wt and complete etoh abstinence to decrease RF's for failure. ferritin fell 1263, to 501 with phlebotomy , sat 60 to 34% f/u Bx planned 2018 Antibiotic prophylaxis recommended 702586523 Z76.89 prophylact ic orthopedic abx have caused diarrhea. surgeon insistsbel ieves is amoxc/o diarrhea since octoberNov 2019, after last dosingCDT neg tassonifai led cipro cleansinge asing slowly with probiotics i have no other suggestion sshould change to ceph clinda or azith, he will ask if ortho Ok's Diarrhea 76334341 R19.7 06/2020 not really diarrhea c/o is solely based on noting need to stool twice in AM second time after coffee stool is formed no pain , incontinen ce or effects limiting travel advised that this doesnt reflect disease suggested culturelle , Rx'd but added that this is surely functional [id number] Ramona Dunn MD , [facility] [address] [place] [address] 02/27/2021 14:21:48 02/27/2021 15:25:16 Adult health examination 330015644 Z00.00 see Risk Assessment and Lifestyle Change Counseling section above Counseling 641874656 Z71 .9 including cardiovasc ular risk reduction counseling Depression screening 171 971105 Z13.31 depression screening tool administer ed, entered into emr, scored and discussed, time greater than 7.5 minutes Screening for alcohol abuse 087318366 Z13.39 Active or passive immunization 624365215 Z23 Mixed hyperlipidemia 267 886787 E78.2 lipids unchanged and very low. on ator 10cont indefinite ly agreed to hold atorvastat in and repeat lipids off med. mid June Cholestero l is at goal in fact has been very low since 2006 on atorvastat in 20 plan continue indefinite ly with routine followup Cholestero l is not at goal Continue to work on diet and exercise as discussed Benign ess ential hypertension 0186644 I10 122/Feb 07/16/2020 144/80 will double lisinopril to 40 mg tab Rx #90 x 3 HCTZ 25 Lisinopril 40 * vikas video 01/16/2020 lisinopril increased to 20 with new Rx as his home BP's 140 systolic asked to follow * Blood pressure at goal below 140/90 on HCTZ and lisinopril 10, plan continue indefinite ly with routine followup bmp and exam twice a year Gastroesop hageal reflux disease 719951792 K21.9 otc PPI helpful every other dayEGD 04/2016 nl , no barrettsco lo with bx's neg as well , Tassoni. Impaired f asting glycemia 342254783 R73.01 stable 110 past 7 years Obesity 131509268 E66.9 stable over many years overall. 04/2017 unchanged net, past year. 7 wt loss ongoing, 14 pound wt loss past 18 months. wt down significan tly, congratula tedhe exercises regularly at [employer] watches wt and exercises using phone ross Obstructiv e sleep apnea syndrome 96937274 G47.33 11/2017pt states he doesnt use it and feels the same. c.o nasal congestion and nasal coldnesspo lysomnogra m AHI 69 fell to 1 with CPAP titration 01/2018 He has documented NANCY form 2004 study, he would benefit from CPAPneeds new equipment. CPAP helpful, when usedunder imaging i found June 2003 study showing severe NANCY Loose stool 587360605 R1 9.5 chronic. eased with FODMAP diet thru [facility]oniurg ency resolved. Family his tory of Aortic aneurysm 996775475 Z82.49 brother with AAA, pt wishes screenin04/2016 nl ultrasound Hepatic fibrosis 0386155 2 K74.02 13. Hepatic fibrosis - advanced fibrosis by fibrotest. inactive, LFTS's normal. 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 phlebotomi es to keep at goal, 3 planned in year 2018 44/93/23 % sat * HCT, ferritin (18) and sat (14%)at goal, followed Christin. goal HCT <40, ferritin <30, Fe sat <20, Fe ,45 following heavy q 2 wk, later monthly phlebotomy fall 2016, now 1/4 annually diagnosed christin 06-10-2016, studies completed 07/22/16 note biopsy 06/30/16 IR at [facility] confirmed, fe index 0.8, 60 % fe sat heterozygo us H63D gene variant plan to phlebotomi ze to make fe deficient, lose wt and complete etoh abstinence to decrease RF's for failure. ferritin fell 1263, to 501 with phlebotomy , sat 60 to 34% f/u Bx planned 2018 Antibiotic prophylaxis recommended 712943482 Z76.89 prophylact ic orthopedic abx have caused diarrhea. surgeon insistsbel ieves is amoxc/o diarrhea since octoberNov 2019, after last dosingCDT neg tassonifai led cipro cleansinge asing slowly with probiotics i have no other suggestion sshould change to [facility] clinda or azith, he will ask if ortho Ok's Diarrhea 25243735 R19.7 06/2020 not really diarrhea c/o is solely based on noting need to stool twice in AM second time after coffee stool is formed no pain , incontinen ce or effects limiting travel advised that this doesnt reflect disease suggested mehdi , Rx'd but added that this is surely functional Screening for malignant neoplasm of prostate 153903397 Z12.5 1.44 age 67 unlikely to ever have prostateCA Screening for malignant neoplasm of colon 749992502 Z12.11 normal one HP one adenoma in 2017, wishes to have every 5 years [id number] Sterling Pacheco MD [facility], [facility] [address] [facility] [place] [address] 04/01/2021 06:56:09 04/01/2021 13:06:42 [id number] Ramona Dunn MD , [facility] [place], [address]ICE [address] [place] [address] 05/05/2021 09:04:58 05/05/2021 16:47:58 Pain of left ankle joint 2382179117 4979776 M25.572 spontaneou s onset at4PM yesterdayn o trauma or related History indeed the left ankle joint is grossly swollencir cumferenti allysurpri singly neither red or warmhe is walking on 2 crutches of necessitya nd only slightly tenderpain ful to stance but not passive non weight-herman ring range of motion will image to exclude pathologyt reat as pseudogout or OA flarepred 40 qdx4 then 20 [id number] as needed [id number] Ramona Dunn MD , [facility] [place], [address] [place] [address] 08/25/2021 11:19:45 08/25/2021 12:06:08 Pain of left ankle joint 8164801908 9531155 M25.572 gout responded to pred spontaneou s onset at4PM yesterdayn o trauma or related History indeed the left ankle joint is grossly swollencir cumferenti allysurpri singly neither red or warmhe is walking on 2 crutches of necessitya nd only slightly tenderpain ful to stance but not passive non weight-herman ring range of motion will image to exclude pathologyt reat as pseudogout or OA flarepred 40 qdx4 then 20 glu9qhs as needed Screening for alcohol abuse 826617831 Z13.39 Mixed hyperlipidemia 267 273936 E78.2 lipids unchanged and very low. on ator 10 153/94cont indefinite ly agreed to hold atorvastat in and repeat lipids off med. mid June Cholestero l is at goal in fact has been very low since 2006 on atorvastat in 20 plan continue indefinite ly with routine followup Cholestero l is not at goal Continue to work on diet and exercise as discussed Benign ess ential hypertension 7561155 I10 122/Feb at [facility] on lisinopril 40 , HCTZ 25 07/16/2020 144/80 will double lisinopril to 40 mg tab Rx #90 x 3 HCTZ 25 Lisinopril 40 * vikas video 01/16/2020 lisinopril increased to 20 with new Rx as his home BP's 140 systolic asked to follow * Blood pressure at goal below 140/90 on HCTZ and lisinopril 10, plan continue indefinite ly with routine followup bmp and exam twice a year Gastroesop hageal reflux disease 195694981 K21.9 otc PPI helpful every other dayEGD 04/2016 nl , no barrettsco lo with bx's neg as well , Tassoni. Impaired f asting glycemia 538286853 R73.01 stable 110 past 7 years Obesity 092140123 E66.9 stable over many years overall. 04/2017 unchanged net, past year. 7 wt loss ongoing, 14 pound wt loss past 18 months. wt down significan tly, congratula tedhe exercises regularly at [employer] watches wt and exercises using phone ross Obstructiv e sleep apnea syndrome 55294790 G47.33 11/2017pt states he doesnt use it and feels the same. c.o nasal congestion and nasal coldnesspo lysomnogra m AHI 69 fell to 1 with CPAP titration 01/2018 He has documented NANCY form 2004 study, he would benefit from CPAPneeds new equipment. CPAP helpful, when usedunder imaging i found June 2003 study showing severe NANCY Loose stool 797200747 R1 9.5 trial lomotil to ease fears on trips Rx#40 08/25/3021He also c/o belching, asked to discuss with Christin*ur gency easing , fewer defecation s now 2 a day he is glad to tell us.*chroni c. eased with FODMAP diet thru [facility] ency resolved. 06/2020 not really diarrhea c/o is solely based on noting need to stool twice in AM second time after coffee stool is formed no pain , incontinen ce or effects limiting travel advised that this doesnt reflect disease suggested mehdi , Rx'd but added that this is surely functional Family his tory of Aortic aneurysm 152903939 Z82.49 brother with AAA, pt wishes screenin04/2016 nl ultrasound Hepatic fibrosis 0450779 2 K74.02 13. Hepatic fibrosis - advanced fibrosis by fibrotest. inactive, LFTS's normal. 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 phlebotomi es to keep at goal, 3 planned in year 2018 44/93/23 % sat * HCT, ferritin (18) and sat (14%)at goal, followed Tassoni. goal HCT <40, ferritin <30, Fe sat <20, Fe ,45 following heavy q 2 wk, later monthly phlebotomy fall 2016, now 1/ annually diagnosed krissoni 06-10-2016, studies completed 07/22/16 note biopsy 06/30/16 IR at [facility] confirmed, fe index 0.8, 60 % fe sat heterozygo us H63D gene variant plan to phlebotomi ze to make fe deficient, lose wt and complete etoh abstinence to decrease RF's for failure. ferritin fell 1263, to 501 with phlebotomy , sat 60 to 34% f/u Bx planned 2018 Antibiotic prophylaxis recommended 849302455 Z76.89 orthopedic s requires abx prophyllax isthey have caused diarrhea. but the surgeon insistsPt believes is amoxwhich induced fecal urgency since octoberNov 2019, after last dosingCDT neg tassonifai led cipro cleansinge asing slowly with probiotics i have no other suggestion sshould change to ceph clinda or azith, he will ask if ortho Ok's Screening for malignant neoplasm of prostate 833988423 Z12.5 1.44 age 67 unlikely to ever have prostateCA Screening for malignant neoplasm of colon 025805124 Z12.11 normal one HP one adenoma in 2017, wishes to have every 5 years [id number] Carmen MURPHY, [facility] [place], [address] [place] [address] 10/19/2021 14:31:00 10/19/2021 16:29:24 Active or passive immunization 922487591 Z23 Pain of le ft shoulder joint 3266307508 7064924 M25.512 Pain in left arm 3192071 00 M79.602 More towards posterior shoulder, elbow with some mild tenderness but no worse on L than R, so more likely either muscular strain or mild arthritis in shoulder. Would get x-ray of the shoulder to determine this but given activity would recommend physical therapy regardless . [id number] Ramona Dunn MD , [facility] [place], [address] [place] [address] 03/03/2022 10:50:14 03/03/2022 11:46:28 Adult health examination 119391632 Z00.00 see Risk Assessment and Lifestyle Change Counseling section above Counseling 279396668 Z71 .9 including cardiovasc ular risk reduction counseling Depression screening 171 881463 Z13.31 depression screening tool administer ed, entered into emr, scored and discussed, time greater than 7.5 minutes Screening for alcohol abuse 107893862 Z13.39 Mixed hyperlipidemia 267 932159 E78.2 lipids unchanged and very low. on ator 10 153/94cont indefinite ly agreed to hold atorvastat in and repeat lipids off med. mid June Cholestero l is at goal in fact has been very low since 2006 on atorvastat in 20 plan continue indefinite ly with routine followup Cholestero l is not at goal Continue to work on diet and exercise as discussed Benign ess ential hypertension 9512336 I10 at goal on lisinopril 40 , HCTZ 25*07/17/19 21 144/80 will double lisinopril to 40 mg tab Rx #90 x 3 HCTZ 25 Lisinopril 40 * vikas video 01/16/2020 lisinopril increased to 20 with new Rx as his home BP's 140 systolic asked to follow * Blood pressure at goal below 140/90 on HCTZ and lisinopril 10, plan continue indefinite ly with routine followup bmp and exam twice a year Gastroesop hageal reflux disease 003877289 K21.9 otc PPI helpful every other dayEGD 04/2016 nl , no barrettsco lo with bx's neg as well , Tassoni. Impaired f asting glycemia 849273552 R73.01 stable 110 past 7 years Obesity 952110819 E66.9 stable over many years overall. 04/2017 unchanged net, past year. 7 wt loss ongoing, 14 pound wt loss past 18 months. wt down significan tly, congratula tedhe exercises regularly at [employer] watches wt and exercises using phone ross Obstructiv e sleep apnea syndrome 38753563 G47.33 11/2017pt states he doesnt use it and feels the same. c.o nasal congestion and nasal coldnesspo lysomnogra m AHI 69 fell to 1 with CPAP titration 01/2018 He has documented NANCY form 2003 study, he would benefit from CPAPneeds new equipment. CPAP helpful, when usedunder imaging i found June 2003 study showing severe NANCY Family his tory of Aortic aneurysm 963624726 Z82.49 brother with AAA, pt wishes screenin04/2016 nl ultrasound Hepatic fibrosis 8070000 2 K74.02 13. Hepatic fibrosis - advanced fibrosis by fibrotest. inactive, LFTS's normal. 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 phlebotomi es to keep at goal, 3 planned in year 2018 44/93/23 % sat * HCT, ferritin (18) and sat (14%)at goal, followed Tasgladys. goal HCT <40, ferritin <30, Fe sat <20, Fe ,45 following heavy q 2 wk, later monthly phlebotomy fall 2016, now 1/4 annually diagnosed tassoni 06-10-2016, studies completed 07/22/16 note biopsy 06/30/16 IR at [facility] confirmed, fe index 0.8, 60 % fe sat heterozygo us H63D gene variant plan to phlebotomi ze to make fe deficient, lose wt and complete etoh abstinence to decrease RF's for failure. ferritin fell 1263, to 501 with phlebotomy , sat 60 to 34% f/u Bx planned 2018 Antibiotic prophylaxis recommended 746360365 Z76.89 orthopedic s requires abx prophyllax isthey have caused diarrhea. but the surgeon insistsPt believes is amox PMH:which induced fecal urgency since octoberNov 2019, after last dosingCDT neg tassonifai led cipro cleansinge asing slowly with probiotics i have no other suggestion sshould change to ceph clinda or azith, he will ask if ortho Ok's Loose stool 178121292 R1 9.5 gassiness eased with fewer carbs, cut dairy as well, stools have firmed up a bit, through Tassoni*tr ial lomotil to ease fears on trips Rx#40 08/25/3021He also c/o belching, asked to discuss with Christin*ur gency easing , fewer defecation s now 2 a day he is glad to tell us.*chroni c. eased with FODMAP diet thru Tassoniurg ency resolved. 06/2020 not really diarrhea c/o is solely based on noting need to stool twice in AM second time after coffee stool is formed no pain , incontinen ce or effects limiting travel advised that this doesnt reflect disease suggested mehdi , Rx'd but added that this is surely functional Screening for malignant neoplasm of prostate 009029621 Z12.5 1.44 age 67 unlikely to ever have prostateCA 3.35 age 71 Screening for malignant neoplasm of colon 116823878 Z12.11 normal one HP one adenoma in 2017, wishes to have every 7 yearsfollo wed tassoni for other condition, will leave f.u to GI [id number] Ramona Dunn MD , [facility] [place], [address] [place] [address] 08/31/2022 09:37:41 09/01/2022 09:11:34 Mixed hyperlipidemia 168331769 E78.2 raised HDL 5 points to 44 having exercised in [place] over the winter lipids unchanged and very low. on ator 10 153/94cont indefinite ly agreed to hold atorvastat in and repeat lipids off med. mid June Cholestero l is at goal in fact has been very low since 2006 on atorvastat in 20 plan continue indefinite ly with routine followup Cholestero l is not at goal Continue to work on diet and exercise as discussed Screening for alcohol abuse 651398610 Z13.39 Benign ess ential hypertension 9631243 I10 at goal on lisinopril 40 , HCTZ 25*07/17/19 21 144/80 will double lisinopril to 40 mg tab Rx #90 x 3 HCTZ 25 Lisinopril 40 * vikas video 01/16/2020 lisinopril increased to 20 with new Rx as his home BP's 140 systolic asked to follow * Blood pressure at goal below 140/90 on HCTZ and lisinopril 10, plan continue indefinite ly with routine followup bmp and exam twice a year Gastroesop hageal reflux disease 007630334 K21.9 otc PPI helpful every other dayEGD 04/2016 nl , no barrettsco lo with bx's neg as well , Krissonkhalida. Impaired f asting glycemia 328601324 R73.01 FBG 118, A1v=c mega 5.9 to 6.2 over 18 months, [address] nowcounsel led re weight loss and [id number] ordered 2 x a year* stable 110 past 7 years Obesity 849350628 E66.9 up 8 pounds 2021-has committed to wt loss 08/2022 stable over many years overall. 04/2017 unchanged net, past year. 7 wt loss ongoing, 14 pound wt loss past 18 months. wt down significan tly, congratula tedhe exercises regularly at [employer] watches wt and exercises using phone ross Obstructiv e sleep apnea syndrome 62335297 G47.33 11/2017pt states he doesnt use it and feels the same. c.o nasal congestion and nasal coldnesspo lysomnogra m AHI 69 fell to 1 with CPAP titration 01/2018 He has documented NANCY form 2004 study, he would benefit from CPAPneeds new equipment. CPAP helpful, when usedunder imaging i found June 2003 study showing severe NANCY Family his tory of Aortic aneurysm 327236202 Z82.49 brother with AAA, pt wishes screenin04/2016 nl ultrasound Hepatic fibrosis 2080044 2 K74.02 13. Hepatic fibrosis - advanced fibrosis by fibrotest. inactive, LFTS's normal. 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 phlebotomi es to keep at goal, 3 planned in year 2018 44/93/23 % sat * HCT, ferritin (18) and sat (14%)at goal, followed Christin. goal HCT <40, ferritin <30, Fe sat <20, Fe ,45 following heavy q 2 wk, later monthly phlebotomy fall 2016, now 1/4 annually diagnosed tassoni 06-10-2016, studies completed 07/22/16 note biopsy 06/30/16 IR at [facility] confirmed, fe index 0.8, 60 % fe sat heterozygo us H63D gene variant plan to phlebotomi ze to make fe deficient, lose wt and complete etoh abstinence to decrease RF's for failure. ferritin fell 1263, to 501 with phlebotomy , sat 60 to 34% f/u Bx planned 2018 Antibiotic prophylaxis recommended 578502534 Z76.89 orthopedic s requires abx prophylaxi sthey have caused diarrhea. but the surgeon insistsPt believes is amoxPSH left knee TKR 2017 Dr Sellers PMH:which induced fecal urgency since octoberNov 2019, after last dosingCDT neg tassonifai led cipro cleansinge asing slowly with probiotics i have no other suggestion sshould change to ceph clinda or azith, he will ask if ortho Ok's Loose stool 004982076 R1 9.5 gassiness eased with fewer carbs, cut dairy as well, stools have firmed up a bit, through Tassoni*tr ial lomotil to ease fears on trips Rx#40 08/25/3021He also c/o belching, asked to discuss with Tassoni*ur gency easing , fewer defecation s now 2 a day he is glad to tell us.*chroni c. eased with FODMAP diet thru Tassoniurg ency resolved. 06/2020 not really diarrhea c/o is solely based on noting need to stool twice in AM second time after coffee stool is formed no pain , incontinen ce or effects limiting travel advised that this doesnt reflect disease suggested mehdi , Rx'd but added that this is surely functional Screening for malignant neoplasm of prostate 432007788 Z12.5 1.44 age 67 unlikely to ever have prostate CA3.35 age 71, followorde red for 03/2023 Screening for malignant neoplasm of colon 327308187 Z12.11 normal one HP one adenoma in 2017, wishes to have every 7 yearsfollo wed tassoni for other condition, will leave f.u to GI Pain of ri ght knee joint 1875010100 27444 M25.561 limps to rightholds R knee rigid at 10 degrees flexionthi s is limiting his activity , pleasures and exerciseop tions for treatment discussed agreed to see sports med for more thorough initial evaluation advice [id number] Gene Sellers MD Sports Medicine, [address] [address] 09/27/2022 08:49:18 09/28/2022 13:33:48 Pain of elbow region 42786536 M25.522 Ramona's left elbow pain I believe is due to radial tunnel syndrome. He has discomfort primarily over the radial tunnel clinically exam and less discomfort over the common extensor tendon. Discussed this diagnosis in detail as well as discussing treatment. He had improvemen t with a short course of prednisone previously and I have given him a repeat dose today. Due to his liver issues we will hold off on NSAIDs or Tylenol. I have also given a referral to Occupation al Therapy. He will plan to follow up with me in 10 weeks if her symptoms are not improved. 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 This does appear chronic. He has no evidence of a infection and minimal pain which I feel makes loosening less likely. I did advise x-ray imaging of the knee which he declined to pursue. I have advised that this is unlikely to improve or resolve with stretching or physical therapy. I advised that the only way to truly begin range of motion would be through surgical interventi on with Dr. Sellers which is not something he wishes to pursue. We discussed options for exercise with his limited knee motion including walking as well as use of a rowing machine. He will follow up with me only as needed if he has worsening symptoms. [id number] Viviana Gallegos OTR/L, [facility], [address] [address] 10/22/2022 08:45:05 10/22/2022 14:42:45 Radial tunnel syndrome [id number] G56.32 [id number] Ramona Dunn MD , [facility] [place] [address] [facility] [place] [address] 04/27/2023 15:23:06 05/01/2023 17:47:32 Adult health examination 057322388 Z00.00 well examsee Risk Assessment and Lifestyle Change Counseling section above Depression screening 171 331201 Z13.31 depression screening tool administer ed Screening for alcohol abuse 817646374 Z13.39 Alcohol use screening tool administer ed Mixed hyperlipidemia 267 516798 E78.2 raised HDL 5 points to 44 having exercised in [place] over the winter lipids unchanged and very low. on ator 10 153/94cont indefinite ly agreed to hold atorvastat in and repeat lipids off med. mid June Cholestero l is at goal in fact has been very low since 2006 on atorvastat in 20 plan continue indefinite ly with routine followup Cholestero l is not at goal Continue to work on diet and exercise as discussed Benign ess ential hypertension 3381672 I10 at goal on lisinopril 40 , HCTZ 25has been in high teens for some time, we agreed to follow the occasional lightheade dness standing* 144/80 will double lisinopril to 40 mg tab Rx #90 x 3 HCTZ 25 Lisinopril 40 * vikas video 01/16/2020 lisinopril increased to 20 with new Rx as his home BP's 140 systolic asked to follow * Blood pressure at goal below 140/90 on HCTZ and lisinopril 10, plan continue indefinite ly with routine followup bmp and exam twice a year Gastroesop hageal reflux disease 860842400 K21.9 otc PPI helpful every other dayEGD 04/2016 nl , no barrettsco lo with bx's neg as well , Tassoni. Impaired f asting glycemia 785788763 R73.01 6.0 A1cFBG 118, A1v=c mega 5.9 to 6.2 over 18 months, ave 130 nowcounsel led re weight loss and [id number] ordered 2 x a year* stable 110 past 7 years Obesity 950543934 E66.9 stable over many years overall. 04/2017 unchanged net, past year. 7 wt loss ongoing, 14 pound wt loss past 18 months. wt down significan tly, congratula tedhe exercises regularly at [employer] watches wt and exercises using phone ross Obstructiv e sleep apnea syndrome 33627139 G47.33 11/2017pt states he doesnt use it and feels the same. c.o nasal congestion and nasal coldnesspo lysomnogra m AHI 69 fell to 1 with CPAP titration 01/2018 He has documented NANCY form 2004 study, he would benefit from CPAPneeds new equipment. CPAP helpful, when usedunder imaging i found June 2003 study showing severe NANCY Family his tory of Aortic aneurysm 034454758 Z82.49 brother with AAA, pt wishes screenin04/2016 nl ultrasound Hepatic fibrosis 3472295 2 K74.02 US every 6 months, allowed 2 rinks a week. Tassoni*He patic fibrosis - advanced fibrosis by fibrotest. inactive, LFTS's normal. 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 phlebotomi es to keep at goal, 3 planned in 2018 44/93/23 % sat * HCT, ferritin (18) and sat (14%)at goal, followed Christin. goal HCT <40, ferritin <30, Fe sat <20, Fe ,45 following heavy q 2 wk, later monthly phlebotomy fall 2016, now 1/4 annually diagnosed christin 06-10-2016, studies completed 07/22/16 note biopsy 06/30/16 IR at [facility] confirmed, fe index 0.8, 60 % fe sat heterozygo us H63D gene variant plan to phlebotomi ze to make fe deficient, lose wt and complete etoh abstinence to decrease RF's for failure. ferritin fell 1263, to 501 with phlebotomy , sat 60 to 34% f/u Bx planned 2018 Antibiotic prophylaxis recommended 273092187 Z76.89 orthopedic s requires abx prophylaxi sthey have caused diarrhea. but the surgeon insistsPt believes is amoxPSH left knee TKR 2017 Dr Sellers PMH:which induced fecal urgency since octoberNov 2019, after last dosingCDT neg tassonifai led cipro cleansinge asing slowly with probiotics i have no other suggestion sshould change to ceph clinda or azith, he will ask if ortho Ok's Loose stool 294700681 R1 9.5 gassiness eased with fewer carbs,stoo ls have firmed up a bit, through Tassoni*tr ial lomotil to ease fears on trips Rx#40 08/25/3021He also c/o belching, asked to discuss with Tassoni*ur gency easing , fewer defecation s now 2 a day he is glad to tell us.*chroni c. eased with FODMAP diet thru Tassoniurg ency resolved. 06/2020 not really diarrhea c/o is solely based on noting need to stool twice in AM second time after coffee stool is formed no pain , incontinen ce or effects limiting travel advised that this doesnt reflect disease suggested mehdi , Rx'd but added that this is surely functional Screening for malignant neoplasm of prostate 803204257 Z12.5 2.81 age 743.35 age 71, follow1.44 age 67 unlikely to ever have prostate CA Screening for malignant neoplasm of colon 200350222 Z12.11 normal one HP one adenoma in 2017, wishes to have every 7 yearsfollo aparna poncesoni for other condition, will leave f.u to GI Osteoarthritis 005036420 M19.90 sp. Right Total Hip replacemen t5/]2022 limps to right s/p Left Total Kneeholds L knee rigid at 10 degrees flexionthi s is limiting his activity , pleasures and exerciseop tions for treatment discussed agreed to see sports med for more thorough initial evaluation advice Syndrome o f carbohydrate intolerance 79262790 K90.49 gassiness eased with fewer carbs,stoo ls have firmed up a bit, through Tassoni*tr ial lomotil to ease fears on trips Rx#40 08/25/3021He also c/o belching, asked to discuss with Tassoni*ur gency easing , fewer defecation s now 2 a day he is glad to tell us.*chroni c. eased with FODMAP diet thru Tassoniurg ency resolved. 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 MD , [facility] [place] [address] [place] [address] 08/19/2023 09:23:18 08/19/2023 10:32:36 Seborrheic keratosis 942637069 L82.1 multiple of back.recom mend f/u with derm Epidermoid cyst of skin of back 574475716 L72.0 lower backnot draining or inflamed.d eclines general surgeon referral at this time. Dry skin dermatitis 2600 24149 L85.3 advised hydration with aquaphor or eucerin. [id number] Ramona Dunn MD , [facility] [place], [address] [place] [address] 12/20/2023 10:32:11 01/03/2024 13:42:04 Mixed hyperlipidemia 505439316 E78.2 raised HDL 5 points to 44 having exercised in [place] over the winter lipids unchanged and very low. on atorvastat in cont indefinite ly agreed to hold atorvastat in and repeat lipids off med. mid June Cholestero l is at goal in fact has been very low since 2006 on atorvastat in 20 plan continue indefinite ly with routine followup Cholestero l is not at goal Continue to work on diet and exercise as discussed Benign ess ential hypertension 2006944 I10 at goal on lisinopril 40 , HCTZ 25has been in high teens for some time, we agreed to follow the occasional lightheade dness standing* 144/80 will double lisinopril to 40 mg tab Rx #90 x 3 HCTZ 25 Lisinopril 40 * vikas video 01/16/2020 lisinopril increased to 20 with new Rx as his home BP's 140 systolic asked to follow * Blood pressure at goal below 140/90 on HCTZ and lisinopril 10, plan continue indefinite ly with routine followup bmp and exam twice a year Gastroesop hageal reflux disease 310988768 K21.9 otc PPI helpful every other dayEGD 04/2016 nl , no barrettsco lo with bx's neg as well , Tassoni. Impaired f asting glycemia 982923009 R73.01 6.0 A1cFBG 118, A1v=c mega 5.9 to 6.2 over 18 months, ave 130 nowcounsel led re weight loss and [id number] ordered 2 x a year* stable 110 past 7 years Obesity 671831301 E66.9 stable over many years overall. 04/2017 unchanged net, past year. 7 wt loss ongoing, 14 pound wt loss past 18 months. wt down significan tly, congratula tedhe exercises regularly at [employer] watches wt and exercises using phone ross Obstructiv e sleep apnea syndrome 36875124 G47.33 11/2017pt states he doesnt use it and feels the same. c.o nasal congestion and nasal coldnesspo lysomnogra m AHI 69 fell to 1 with CPAP titration 01/2018 He has documented NANCY form 2004 study, he would benefit from CPAPneeds new equipment. CPAP helpful, when usedunder imaging i found June 2003 study showing severe NANCY Family his tory of Aortic aneurysm 922148894 Z82.49 brother with AAA, pt wishes screenin04/2016 nl ultrasound Hepatic fibrosis 7894134 2 K74.02 US every 6 months, allowed 2 drinks a week. Tassoni*He patic fibrosis - advanced fibrosis by fibrotest. inactive, LFTS's normal. 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 phlebotomi es to keep at goal, 3 planned in year 2018 44/93/23 % sat * HCT, ferritin (18) and sat (14%)at goal, followed Christin. goal HCT <40, ferritin <30, Fe sat <20, Fe ,45 following heavy q 2 wk, later monthly phlebotomy fall 2016, now 1/4 annually diagnosed ursulakhalida 06-10-2016, studies completed 07/22/16 note biopsy 06/30/16 IR at [facility] confirmed, fe index 0.8, 60 % fe sat heterozygo us H63D gene variant plan to phlebotomi ze to make fe deficient, lose wt and complete etoh abstinence to decrease RF's for failure. ferritin fell 1263, to 501 with phlebotomy , sat 60 to 34% f/u Bx planned 2018 Antibiotic prophylaxis recommended 668190993 Z76.89 orthopedic s requires abx prophylaxi sthey have caused diarrhea. but the surgeon insistsPt believes is amoxPSH left knee TKR 2017 Dr Sellers PMH:which induced fecal urgency since octoberNov 2019, after last dosingCDT neg tassonifai led cipro cleansinge asing slowly with probiotics i have no other suggestion sshould change to ceph clinda or azith, he will ask if ortho Ok's Syndrome o f carbohydrate intolerance 19095592 K90.49 gassiness eased with fewer carbs,stoo ls have firmed up a bit, through Tassoni*tr ial lomotil to ease fears on trips Rx#40 08/25/3021He also c/o belching, asked to discuss with Tassoni*ur gency easing , fewer defecation s now 2 a day he is glad to tell us.*chroni c. eased with FODMAP diet thru Tassoniurg ency resolved. 06/2020 not really diarrhea c/o is solely based on noting need to stool twice in AM second time after coffee stool is formed no pain , incontinen ce or effects limiting travel advised that this doesnt reflect disease suggested mehdi , Rx'd but added that this is surely functional Screening for malignant neoplasm of prostate 840534276 Z12.5 2.81 age 743.35 age 71, follow1.44 age 67 unlikely to ever have prostate CA Screening for malignant neoplasm of colon 155317524 Z12.11 normal one HP one adenoma in 2017, wishes to have every 7 yearsfollo aparna tassoni for other condition, will leave f.u to GI Osteoarthritis 591806985 M19.90 sp. Right Total Hip replacemen t5/]2022 limps to right s/p Left Total Kneeholds L knee rigid at 10 degrees flexionthi s is limiting his activity , pleasures and exerciseop tions for treatment discussed agreed to see sports med for more thorough initial evaluation advice Radial pérez dimple syndrome 875840463 G56.[address] Sellers based on site tenderness : radial tunnel is an achy pain 3-4 cm distal to lateral epicondyle volar surface, no weaknessde nies weakness in flexor components reports an ache and numbness sensation along volar forearm which is consistent with the given diagnosis [id number] Ramona Dunn MD , [facility] [place] [address] [place], [place] [address] 02/27/2024 08:55:51 02/27/2024 12:04:16 Pre-surgery evaluation 713383685 Z01.818 He denies CP,BECKER,SOB ,LOC,FSC, palpitatio ns, lightheade dnessHe has no cardiac historyLow risk for planned cataract surgery with Dr Cedillo pt is on aspirin, no formal guidelines found regarding this. Benign ess ential hypertension 5961510 I10 at goal on lisinopril 40 , HCTZ 25has been in high teens for some time, we agreed to follow the occasional lightheade dness standing* 144/80 will double lisinopril to 40 mg tab Rx #90 x 3 HCTZ 25 Lisinopril 40 * vikas video 01/16/2020 lisinopril increased to 20 with new Rx as his home BP's 140 systolic asked to follow * Blood pressure at goal below 140/90 on HCTZ and lisinopril 10, plan continue indefinite ly with routine followup bmp and exam twice a year Hereditary hemochromatosis 88677845 E83.110 phlebotomi es 4 x a year , later , 3 times a year, finds the idea salutory through Tassoni labs at [facility]- iron index 0.8 stage 2-3 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 phlebotomi es to keep at goal, 3 planned in year 2018 44/93/23 % sat * HCT, ferritin (18) and sat (14%)at goal, followed Christin. goal HCT <40, ferritin <30, Fe sat <20, Fe ,45 following heavy q 2 wk, later monthly phlebotomy fall 2016, now 1/ annually diagnosed christin 06-10-2016, studies completed 07/22/16 note biopsy 06/30/16 IR at [facility] confirmed, fe index 0.8, 60 % fe sat heterozygo us H63D gene variant plan to phlebotomi ze to make fe deficient, lose wt and complete etoh abstinence to decrease RF's for failure. ferritin fell 1263, to 501 with phlebotomy , sat 60 to 34% f/u Bx planned 2018 Hepatocell ular liver damage 045461075 K76.89 Gastroesop hageal reflux disease 787678302 K21.9 otc PPI helpful every other dayEGD 04/2016 nl , no barrettsco lo with bx's neg as well , Christin. Blood gluc ose outside reference range 919191949 R73.09 Mixed hyperlipidemia 267 463524 E78.2 raised HDL 5 points to 44 having exercised in [place] over the winter lipids unchanged and very low. on atorvastat in 153/94cont indefinite ly agreed to hold atorvastat in and repeat lipids off med. mid June Cholestero l is at goal in fact has been very low since 2006 on atorvastat in 20 plan continue indefinite ly with routine followup Cholestero l is not at goal Continue to work on diet and exercise as discussed Obstructiv e sleep apnea syndrome 68861957 G47.33 historical l: 11/2017pt states he doesnt use it and feels the same. c.o nasal congestion and nasal coldnesspo lysomnogra m AHI 69 fell to 1 with CPAP titration 01/2018 He has documented NANCY form 2003 study, he would benefit from CPAPneeds new equipment. CPAP helpful, when usedunder imaging i found June 2003 study showing severe NANCY [id number] Ramona Dunn MD , [facility] [place] [address] [place] [address] 05/25/2024 11:00:00 05/25/2024 13:21:04 Adult health examination 092122286 Z00.00 well examsee Risk Assessment and Lifestyle Change Counseling section above Depression screening 171 193009 Z13.31 depression screening tool administer ed Screening for alcohol abuse 469410920 Z13.39 Alcohol use screening tool administer ed Benign ess ential hypertension 9393285 I10 at goal on lisinopril 40 , HCTZ 25has been in high teens for some time, we agreed to follow the occasional lightheade dness standing* 144/80 will double lisinopril to 40 mg tab Rx #90 x 3 HCTZ 25 Lisinopril 40 * vikas video 01/16/2020 lisinopril increased to 20 with new Rx as his home BP's 140 systolic asked to follow * Blood pressure at goal below 140/90 on HCTZ and lisinopril 10, plan continue indefinite ly with routine followup bmp and exam twice a year Hereditary hemochromatosis 19610773 E83.110 phlebotomi es 4 x a year , prior , 3 times a year, finds the idea salutory through Tassoni labs at [facility]- iron index 0.8 stage 2-3 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 phlebotomi es to keep at goal, 3 planned in year 2018 44/93/23 % sat * HCT, ferritin (18) and sat (14%)at goal, followed Christin. goal HCT <40, ferritin <30, Fe sat <20, Fe ,45 following heavy q 2 wk, later monthly phlebotomy fall 2016, now 1/4 annually diagnosed christin 06-10-2016, studies completed 07/22/16 note biopsy 06/30/16 IR at [facility] confirmed, fe index 0.8, 60 % fe sat heterozygo us H63D gene variant plan to phlebotomi ze to make fe deficient, lose wt and complete etoh abstinence to decrease RF's for failure. ferritin fell 1263, to 501 with phlebotomy , sat 60 to 34% f/u Bx planned 2018 Hepatocell ular liver damage 107699224 K76.89 Gastroesop hageal reflux disease 015262152 K21.9 otc PPI helpful every other dayEGD 04/2016 nl , no barrettsco lo with bx's neg as well , Christin. Blood gluc ose outside reference range 078981337 R73.09 chronic for many years at 112 Mixed hyperlipidemia 267 289998 E78.2 raised HDL 5 points to 44 having exercised in [place] over the winter lipids unchanged and very low. on atorvastat in cont indefinite ly agreed to hold atorvastat in and repeat lipids off med. mid June Cholestero l is at goal in fact has been very low since 2006 on atorvastat in 20 plan continue indefinite ly with routine followup Cholestero l is not at goal Continue to work on diet and exercise as discussed Obstructiv e sleep apnea syndrome 72135063 G47.33 historical : 11/2017pt states he doesnt use it and feels the same. c.o nasal congestion and nasal coldnesspo lysomnogra m AHI 69 fell to 1 with CPAP titration 01/2018 He has documented NANCY form 2004 study, he would benefit from CPAPneeds new equipment. CPAP helpful, when usedunder imaging i found June 2003 study showing severe NANCY Screening for malignant neoplasm of colon 492517402 Z12.11 normal one HP one adenoma in 2017, wishes to have every 7 yearsfollo wed tassoni for other condition, will leave f.u to GI Screening for malignant neoplasm of prostate 211280647 Z12.5 2.81 age 743.35 age 71, follow1.44 age 67 unlikely to ever have prostate CA Health Concerns Section Related Observation LastModified by Organization Detai ls LastModified Time None Recorded Concern Status LastModified by Organization Details LastModified Time None Recorded Advance Directives Directive N: information given 05/25/19 13 Payers Encounter Date Sequence Insurance Name Policy Number Policy [place] Covered Member ID [place] Member ID Guarantor Name 04/27/2023 1 [place] [employer] Ramona Mcadams [id number] Ramona Mcadams 04/27/2023 2 [place] [id number] Ramona Mcadams [id number] Ramona Mcadams 08/19/2023 1 [place] Ramona Mcadams [id number] Ramona Mcadams 08/19/2023 2 [place] [id number] Ramona Mcadams [id number] Ramona Mcadams 12/20/2023 1 [place] Ramona Mcadams [id number] Ramona Guerrerou 12/20/2023 2 [place] [id number] Ramona Guerrerou [id number] Ramona Guerrerou 02/27/2024 1 [place] Ramona Mcadams [id number] Ramona Lawlereau 02/27/2024 2 [place] [id number] Ramona Guerrerou [id number] Ramona Lawlereau 05/25/2024 1 [place] Ramona Mcadams [id number] Ramona Guerrerou 05/25/2024 2 [facility] [id number] Ramona Mcadams [id number] Ramona Mcadams Notes Date Note Type Note Provider Name and Address Organization Details Recorded Time 4 text/html Physical Exam/MaleReported bypatient.PHAPatient is here for a Wellness Visit. He describes his health status as good. Patient's health is the same as last year.Risk Assessment and Lifestyle Change Counseling 65+ (Medicare)Reported bypatient.Safety Risk Assessment:No grab bars in bathroom; Has rails on steps; No falls Functional Status:Patient does not have to strain or struggle to hear/understand conversations; Patient does not need help with preparing meals, transportation, shopping, taking medicine, managing finances, or other activities of daily living.; Patient does not have visual loss that interferes with daily activities; Patient was not unsteady and did not take longer than 30 seconds during the timed get up and go test.; Patient reports no falls in the past 6 months.Risk Assessment and Lifestyle Change Counseling-male 50-64Reported bypatient.Diet:Counseled about eating a diet low in trans and saturated fats and high in fiber, fruits and vegetables Exercise counseling:Discussed the importance of daily physical activity workDiscussed the importance of a health care proxy and advanced directivesRisk Assessment and Lifestyle Change Counseling-male 65+Reported bypatient.Coronary Artery Disease Risk Assessment:Does not participate in regular exercise program;Personal history of hypertension; No personal history of diabetes; No history of peripheral vascular disease, AAA, or carotid disease; No personal history of coronary artery disease Colon Cancer Risk Assessment:No history of adenomatous colon polyps Lung Cancer Risk Assessment:No asbestos exposure Fracture Risk Assessment:No unexplained fracture; No falls;Uses proton pump inhibitors on a chronic basis; Patient has low risk for osteoporotic bone fractures Risk for Sexually transmitted disease Assessment:Monogamous relationship Safety Risk Assessment:Uses helmet for high velocity activities; Uses seat belts;No grab bars in bathroom; Has rails on steps; Has not had frequent falls; No evidence of abuse/neglect Functional Status:Patient does not have trouble hearing the television or radio when others do not.; Patient does not have to strain or struggle to hear/understand conversations; Patient does not need help with preparing meals, transportation, shopping, taking medicine, managing finances, or other activities of daily living.; Patient does not have visual loss that interferes with daily activities; Does not live alone; Patient was not unsteady and did not take longer than 30 seconds during the timed get up and go test. Diet:Counseled about eating a diet low in trans and saturated fats and high in fiber, fruits and vegetables Exercise counseling:Discussed the importance of daily physical activity Safety:Counseled about protecting skin from the sun and lowering the risk of skin cancer Advanced DirectivesDiscussed the importance of a health care proxy and advanced directivesVMG HypertensionReported bypatient.Context:No ischemic heart disease; No kidney disease; No history of CVA; No congestive heart failure; No history of transient ischemic attacks; No peripheral vascular disease; No history of diabetes Control:BP Goal less than; Treated with diet and exercise; Treated with medications; Patient understands medications are to lower blood pressure Compliance:Compliant with medications; Compliant with diet; Compliant with exercise; Compliant with follow-up visits Barriers to CareNo identified barriers to care Self Care:not doing home bp monitoring Associated Symptoms:No chest pain; No shortness of breath; No edema; No fatigue; No palpitations; No decline in exercise capacity; No snoring Ability to Manage Self CareOn how confident the patient feels in ability to self manage condition the patient selects 10 with 10 being very confident and 1 being very low confidence; Patient feels very confident in ability to self manage condition Ramona Dunn MD [address] [place], [phone], [facility] 04/30/2023 08:31:40 4 text/html Pt presents for concern with spots on his backreports back itchiness Danny Wolf PA-C [address] [place], [phone], [facility] 08/19/2023 09:51:15 4 text/html Physical Exam/MaleReported bypatient.PHAPatient is here for a Wellness Visit. He describes his health status as good. Patient's health is the same as last year.Risk Assessment and Lifestyle Change Counseling (Medicare)Reported bypatient.Safety Risk Assessment:No grab bars in bathroom; Has rails on steps; No falls Functional Status:Patient does not have to strain or struggle to hear/understand conversations; Patient does not need help with preparing meals, transportation, shopping, taking medicine, managing finances, or other activities of daily living.; Patient does not have visual loss that interferes with daily activities; Patient was not unsteady and did not take longer than 30 seconds during the timed get up and go test.; Patient reports no falls in the past 6 months.Risk Assessment and Lifestyle Change Counseling-male 50-64Reported bypatient.Diet:Counseled about eating a diet low in trans and saturated fats and high in fiber, fruits and vegetables Exercise counseling:Discussed the importance of daily physical activity workDiscussed the importance of a health care proxy and advanced directivesRisk Assessment and Lifestyle Change Counseling-male 65+Reported bypatient.Coronary Artery Disease Risk Assessment:Does not participate in regular exercise program;Personal history of hypertension; No personal history of diabetes; No history of peripheral vascular disease, AAA, or carotid disease; No personal history of coronary artery disease Colon Cancer Risk Assessment:No history of adenomatous colon polyps Lung Cancer Risk Assessment:No asbestos exposure Fracture Risk Assessment:No unexplained fracture; No falls;Uses proton pump inhibitors on a chronic basis; Patient has low risk for osteoporotic bone fractures Risk for Sexually transmitted disease Assessment:Monogamous relationship Safety Risk Assessment:Uses helmet for high velocity activities; Uses seat belts;No grab bars in bathroom; Has rails on steps; Has not had frequent falls; No evidence of abuse/neglect Functional Status:Patient does not have trouble hearing the television or radio when others do not.; Patient does not have to strain or struggle to hear/understand conversations; Patient does not need help with preparing meals, transportation, shopping, taking medicine, managing finances, or other activities of daily living.; Patient does not have visual loss that interferes with daily activities; Does not live alone; Patient was not unsteady and did not take longer than 30 seconds during the timed get up and go test. Diet:Counseled about eating a diet low in trans and saturated fats and high in fiber, fruits and vegetables Exercise counseling:Discussed the importance of daily physical activity Safety:Counseled about protecting skin from the sun and lowering the risk of skin cancer Advanced DirectivesDiscussed the importance of a health care proxy and advanced directivesVMG HypertensionReported bypatient.Context:No ischemic heart disease; No kidney disease; No history of CVA; No congestive heart failure; No history of transient ischemic attacks; No peripheral vascular disease; No history of diabetes Control:BP Goal less than; Treated with diet and exercise; Treated with medications; Patient understands medications are to lower blood pressure Compliance:Compliant with medications; Compliant with diet; Compliant with exercise; Compliant with follow-up visits Barriers to CareNo identified barriers to care Self Care:not doing home bp monitoring Associated Symptoms:No chest pain; No shortness of breath; No edema; No fatigue; No palpitations; No decline in exercise capacity; No snoring Ability to Manage Self CareOn how confident the patient feels in ability to self manage condition the patient selects 10 with 10 being very confident and 1 being very low confidence; Patient feels very confident in ability to self manage condition Ramona Dunn MD [address] [place] [address], [phone], [facility] 01/03/2024 08:55:31 5 text/html Physical Exam/MaleReported bypatient.PHAPatient is here for a Wellness Visit. He describes his health status as good. Patient's health is the same as last year.Risk Assessment and Lifestyle Change Counseling (Medicare)Reported bypatient.Safety Risk Assessment:No grab bars in bathroom; Has rails on steps; No falls Functional Status:Patient does not have to strain or struggle to hear/understand conversations; Patient does not need help with preparing meals, transportation, shopping, taking medicine, managing finances, or other activities of daily living.; Patient does not have visual loss that interferes with daily activities; Patient was not unsteady and did not take longer than 30 seconds during the timed get up and go test.; Patient reports no falls in the past 6 months.Risk Assessment and Lifestyle Change Counseling-male 50-64Reported bypatient.Diet:Counseled about eating a diet low in trans and saturated fats and high in fiber, fruits and vegetables Exercise counseling:Discussed the importance of daily physical activity workDiscussed the importance of a health care proxy and advanced directivesRisk Assessment and Lifestyle Change Counseling-male 65+Reported bypatient.Coronary Artery Disease Risk Assessment:Does not participate in regular exercise program;Personal history of hypertension; No personal history of diabetes; No history of peripheral vascular disease, AAA, or carotid disease; No personal history of coronary artery disease Colon Cancer Risk Assessment:No history of adenomatous colon polyps Lung Cancer Risk Assessment:No asbestos exposure Fracture Risk Assessment:No unexplained fracture; No falls;Uses proton pump inhibitors on a chronic basis; Patient has low risk for osteoporotic bone fractures Risk for Sexually transmitted disease Assessment:Monogamous relationship Safety Risk Assessment:Uses helmet for high velocity activities; Uses seat belts;No grab bars in bathroom; Has rails on steps; Has not had frequent falls; No evidence of abuse/neglect Functional Status:Patient does not have trouble hearing the television or radio when others do not.; Patient does not have to strain or struggle to hear/understand conversations; Patient does not need help with preparing meals, transportation, shopping, taking medicine, managing finances, or other activities of daily living.; Patient does not have visual loss that interferes with daily activities; Does not live alone; Patient was not unsteady and did not take longer than 30 seconds during the timed get up and go test. Diet:Counseled about eating a diet low in trans and saturated fats and high in fiber, fruits and vegetables Exercise counseling:Discussed the importance of daily physical activity Safety:Counseled about protecting skin from the sun and lowering the risk of skin cancer Advanced DirectivesDiscussed the importance of a health care proxy and advanced directivesVMG HypertensionReported bypatient.Context:No ischemic heart disease; No kidney disease; No history of CVA; No congestive heart failure; No history of transient ischemic attacks; No peripheral vascular disease; No history of diabetes Control:BP Goal less than; Treated with diet and exercise; Treated with medications; Patient understands medications are to lower blood pressure Compliance:Compliant with medications; Compliant with diet; Compliant with exercise; Compliant with follow-up visits Barriers to CareNo identified barriers to care Self Care:not doing home bp monitoring Associated Symptoms:No chest pain; No shortness of breath; No edema; No fatigue; No palpitations; No decline in exercise capacity; No snoring Ability to Manage Self CareOn how confident the patient feels in ability to self manage condition the patient selects 10 with 10 being very confident and 1 being very low confidence; Patient feels very confident in ability to self manage condition Ramona Dunn MD [address] [place] [address], [phone], [facility] 05/25/2024 11:50:06
== END 2024-10-01 10:55 | disposition home or self-care (01) ==
LOC: HO.BBR 10:54
PROVIDERS: PCP Internal Medicine; Visit Provider Internal Medicine Gastroenterology
DX: E83.119 Hemochromatosis, unspecified (principal)
CPT/HCPCS: 36415; 82728; 83540; 85025

== ENCOUNTER 2025-01-23 10:48 | Outpatient (REF) | payer MEDICARE, SELFPAY ==
[2025-01-23 11:01] LABS: MANUAL DIFF FLAG NO
[2025-01-23 11:05] LABS: Hematocrit 46.8 % (42.0-52.0); Hemoglobin 15.7 g/dl (14.0-18.0); Imm Gran Abs Auto 0.01 X10*3/uL (0.00-0.03); Imm Gran Pct Auto 0.2 % (0.0-0.4); Lymphocytes Absolute Auto 1.9 X10*3/uL (1.2-4.9); Mean Corpuscular HGB Conc 33.5 g/dl (31.0-36.0); Mean Corpuscular Hemoglobin 30.6 pg (27.0-33.0); Mean Corpuscular Volume 91.2 fL (80.0-98.0); NRBC Abs Auto 0.000 X10*3/uL (0.0-0.012); NRBC Pct Auto 0.0 /100WBC (0.0-0.2); Platelet Count 147 X10*3/uL (160-400); Red Blood Count 5.13 X10*6/uL (4.60-5.80); White Blood Count 5.9 X10*3/uL (4.8-10.8)
[2025-01-23 12:19] LABS: Iron 140 mcg/dL (45-160); Percent Iron Saturation 39 % (15-50); Total Iron Binding Capacity 358 mcg/dL (228-428); Unsaturated Iron Binding 218 ug/dL
--- OUTSIDE RECORDS SUMMARY | 2025-01-23 12:22 | XMS_ITS | Encounter Summary ---
Author Organization [facility] Address [address] [facility] [address] [place] [phone] Phone Care Team Providers Care Towel Cabinet Repairer Name Role Phone Arjun Dunn MD Primary Care Provider [phone] Encounter Details Date Type Department Care Team (Latest Contact Info) Description 06/08/2018 Transcribe Orders [address] [place] [address] Sterling eLa MD [address] [place] [address] [email or web address] Hemochromatosis, hereditary (Primary Dx); Nonalcoholic steatohepatitis (JULIAN) Social History Tobacco Use Types Packs/Day Years Used Date Smoking Tobacco: Never Assessed Sex and Gender Information Value Date Recorded Sex Assigned at Not on file Legal Sex Male 10:04 PM EDT Gender Identity Not on file Sexual Orientation Not on file documented as of this encounter Plan of Treatment Not on file documented as of this encounter Results * Ferritin (06/08/2018 2:34 PM EST) FERRITIN 44 30 - 400 ug/L [facility] Blood 06/08/2018 2:34 PM EST 06/08/2018 2:40 PM EST us Sterling Lea MD LAB BLOOD ORDERABLES Final R esult [facility] [address] [place] [address] * Iron and iron binding capacity (06/08/2018 2:34 PM EST) IRON 93 45 - 160 ug/dL [facility] IRON BINDING CAPACITY 401 228 - 428 ug/dL [facility] TRANSFERRIN SATURAT. 23 20 - 55 % [facility] Blood 06/08/2018 2:34 PM EST 06/08/2018 2:40 PM EST us Sterling Lea MD LAB BLOOD ORDERABLES Final R esult [facility] [address] [place] [address] * (ABNORMAL) Liver fibrosis test (06/08/2018 2:34 PM EST) Fibrosis score 0.64 [facility] Interpretation (Fibrosis) SEE NOTE [facility] Comment: (NOTE) advanced fibrosis Fibro Test Score Metavir Score 0.00-0.21 F0 no fibrosis 0.22-0.27 F0-F1 0.28-0.31 F1 minimal fibrosis 0.32-0.48 F1-F2 0.49-0.58 F2 moderate fibrosis 0.59-0.72 F3 advanced fibrosis 0.73-0.74 F3-F4 0.75-1.00 F4 severe fibrosis HCV Fibrosis Grade F3 [facility] NECROINFLAMM SCORE 0.17 [facility] NECROINFLAMM GRADE A0 [facility] NECROINFLAMM INTERP SEE NOTE [facility] Comment: (NOTE) no activity ActiTest Score Metavir Score 0.00-0.17 A0 no activity 0.18-0.29 A0-A1 0.30-0.36 A1 minimal activity 0.37-0.52 A1-A2 0.53-0.60 A2 significant activity 0.61-0.62 A2-A3 0.63-1.00 A3 severe activity A2 Macroglobulin 334(H) 106 - 279 mg/dL [facility] Haptoglobin 122 43 - 212 mg/dL [facility] Apolipoprotein A1 116 94 - 176 mg/dL [facility] TOTAL BILIRUBIN 0.4 0.2 - 1.2 mg/dL [facility] GGT 34 3 - 70 U/L [facility] ALT 24 9 - 46 U/L [facility] Specimen/Product ID [id number] [facility] Comments (Chemistry) SEE NOTE [facility] Comment: (NOTE) The reliability of results is dependent on compliance with the preanalytical and analytical conditions recommended by [employer]. The tests have to be deferred for: acute hemolysis, acute hepatitis, acute inflammation, extra hepatic cholestasis. The advice of a specialist should be sought for interpretation in chronic hemolysis and Gilbert's syndrome. The test interpretation is not validated in liver transplant patients. Isolated extreme values of one of the components should lead to caution in interpreting the results. In case of discordance between a biopsy result and a test, it is recommended to seek the advice of a specialist. The causes of these discordances could be due to a flaw of the test or to a flaw in the biopsy: i.e. a liver biopsy has a 33% variability rate for one fibrosis stage. FibroTest is interpretable for chronic hepatitis B and C, alcoholic and non alcoholic steatosis. ActiTest is interpretable for chronic hepatitis B and C. The performance characteristics have been determined by [facility]. It has not been cleared or approved by the U.S. Food and Drug Administration. Performance characteristics refer to the analytical performance of the test. [employer], the associated logo, [employer] and all associated [employer] blackwood are the registered trademarks of [employer]. All third green party blackwood - (R) and (TM) - are the property of their respective owners. (C) 7931-4104 [employer]. All rights reserved. Test performed at [employer] [facility] [address] [place] [address] Director: LINA JACOBSON MD,PHD,ANGY Blood 06/08/2018 2:34 PM EST 06/08/2018 2:40 PM EST us Sterling Lea MD LAB BLOOD ORDERABLES Final R esult [facility] [address] [place] [address] * (ABNORMAL) Comprehensive metabolic panel (06/08/2018 2:34 PM EST) SODIUM 147(H) 133 - 146 mmol/L [facility] POTASSIUM 4.1 3.3 - 5.1 mmol/L [facility] CHLORIDE 102 96 - 108 mmol/L [facility] CO2 25 21 - 35 mmol/L [facility] BUN 15 6 - 19 mg/dL [facility] CREATININE 1.00 0.5 - 1.5 mg/dL [facility] GLUCOSE 100(H) 70 - 99 mg/dL [facility] ALBUMIN 4.3 3.9 - 4.8 g/dL [facility] TOTAL PROTEIN 7.3 6.5 - 8.0 g/dL [facility] CALCIUM 9.2 8.4 - 10.3 mg/dL [facility] ALKALINE PHOSPHATASE 71 39 - 117 U/L [facility] TOTAL BILIRUBIN 0.2 0.0 - 1.2 mg/dL [facility] AST 32 0 - 37 U/L [facility] ALT 29 0 - 40 U/L [facility] GLOBULIN 3.0 1 - 4.8 g/dL [facility] EGFR 76 >59 mL/min/1.7 3m2 [facility] Comment:If patient is black, multiply result by 1.159. Estimated glomerular filtration rate calculated using the CKD-EPI equation. ANION GAP 24(H) 10 - 20 mmol/L [facility] Blood 06/08/2018 2:34 PM EST 06/08/2018 2:40 PM EST us Sterling Lea MD LAB BLOOD ORDERABLES Final R esult [address] [id number] * CBC (06/08/2018 2:34 PM EST) WBC 7.84 3.40 - 11.20 K/uL [facility] RBC 5.38 4.50 - 5.50 M/uL [facility] HGB 14.9 13.0 - 17.0 g/dL [facility] HCT 47.0 40.0 - 51.0 % [facility] PLT 160 130 - 400 K/uL [facility] MCV 87.4 79.0 - 98.0 fL [facility] MCH 27.7 27.0 - 34.8 pg [facility] MCHC 31.7 31.5 - 36.0 g/dL [facility] RDW 14.5 10.8 - 14.6 % [facility] MPV Not measured 9.4 - 12.4 fl [facility] NRBC 0.00 0.00 /100 WBCs [facility] ABSOLUTE NRBC 0.00 0.00 K/uL [facility] Blood 06/08/2018 2:34 PM EST 06/08/2018 2:40 PM EST us Sterling Lea MD LAB BLOOD ORDERABLES Final R esult [address] [address] documented in this encounter Visit Diagnoses Diagnosis Hemochromatosis, hereditary- Primary Nonalcoholic steatohepatitis (JULIAN) documented in this encounter Care Teams Towel Cabinet Repairer Relationship Specialty Start Date End Date Arjun Dunn MD [address] [place] [phone] [email or web address] PCP - General 02/10/17 documented as of this encounter Additional Source Comments The information contained in this document represents components of the legal health record. It is not the complete legal health record.[facility]
--- OUTSIDE RECORDS SUMMARY | 2025-01-23 12:22 | XMS_ITS | Encounter Summary ---
Author Organization [facility] Address [address] [facility] [address] [place] [phone] Phone Care Team Providers Care Finish Carpenter Name Role Phone Arjun Dunn MD Primary Care Provider [phone]- [phone] Encounter Details Date Type Department Care Team (Latest Contact Info) Description 12/31/2021 Transcribe Orders [facility] [address] [place] [address] Sterling Lea MD [address] [address] [email or web address] Gastroesophageal reflux disease, unspecified whether esophagitis present (Primary Dx) Social History Tobacco Use Types Packs/Day Years Used Date Smoking Tobacco: Never Assessed Sex and Gender Information Value Date Recorded Sex Assigned at Not on file Legal Sex Male 10:04 PM EDT Gender Identity Not on file Sexual Orientation Not on file documented as of this encounter Plan of Treatment Not on file documented as of this encounter Results * C-Reactive Protein (12/31/2021 10:25 AM EDT) C REACTIVE PROTEIN <3.0 0.0 - 4.0 mg/L [facility] Blood 12/31/2021 10:2 5 AM EDT 12/31/2021 10:27 AM EDT us Sterling Lea MD LAB BLOOD ORDERABLES Final R esult [facility] [address] [place] [address] * (ABNORMAL) Comprehensive metabolic panel (12/31/2021 10:25 AM EDT) SODIUM 143 133 - 146 mmol/L [facility] POTASSIUM 4.0 3.3 - 5.1 mmol/L [facility] CHLORIDE 107 96 - 108 mmol/L [facility] CO2 26 21 - 35 mmol/L [facility] BUN 16 6 - 19 mg/dL [facility] CREATININE 0.90 0.5 - 1.5 mg/dL [facility] GLUCOSE 137(H) 70 - 99 mg/dL [facility] ALBUMIN 4.8 3.9 - 4.8 g/dL [facility] TOTAL PROTEIN 7.7 6.5 - 8.0 g/dL [facility] CALCIUM 9.5 8.4 - 10.3 mg/dL [facility] ALKALINE PHOSPHATASE 57 39 - 117 U/L [facility] TOTAL BILIRUBIN 0.3 0.0 - 1.2 mg/dL [facility] AST 28 0 - 37 U/L [facility] ALT 25 0 - 40 U/L [facility] GLOBULIN 2.9 1 - 4.8 g/dL [facility] EGFR 90 >59 mL/min/1.7 3m2 [facility] Comment:Estimated glomerular filtration rate calculated using the CKD-EPI refit equation. ANION GAP 14 10 - 20 mmol/L [facility] Blood 12/31/2021 10:2 5 AM EDT 12/31/2021 10:27 AM EDT us Sterling Lea MD LAB BLOOD ORDERABLES Final R esult [facility] [address] [place] [address] * (ABNORMAL) CBC (12/31/2021 10:25 AM EDT) WBC 6.03 4.00 - 11.00 K/uL [facility] RBC 5.21 3.90 - 5.69 M/uL [facility] HGB 15.5 12.4 - 17.3 g/dL [facility] HCT 47.6 37.0 - 51.0 % [facility] PLT 166 140 - 430 K/uL [facility] MCV 91.4 78.0 - 97.0 fL [facility] MCH 29.8 25.0 - 33.0 pg [facility] MCHC 32.6 32.0 - 36.0 g/dL [facility] RDW 13.6 11.0 - 15.0 % [facility] MPV 13.5(H) 8.4 - 12.8 fl [facility] Blood 12/31/2021 10:2 5 AM EDT 12/31/2021 10:27 AM EDT us Sterling Lea MD LAB BLOOD ORDERABLES Final R esult [address] [address] * AFP (non-maternal specimens) (12/31/2021 10:25 AM EDT) AFP (NON-MATERNAL) 3.4 <7.9 ng/mL [facility] Blood 12/31/2021 10:2 5 AM EDT 12/31/2021 10:27 AM EDT us Sterling Lea MD LAB BLOOD ORDERABLES Final R esult [address] [address] documented in this encounter Visit Diagnoses Diagnosis Gastroesophageal reflux disease, unspecified whether esophagitis present- Primary documented in this encounter Care Teams Finish Carpenter Relationship Specialty Start Date End Date Arjun Dunn MD [address] [place] [phone] [email or web address] PCP - General 02/10/17 documented as of this encounter Additional Source Comments The information contained in this document represents components of the legal health record. It is not the complete legal health record.[facility]
--- OUTSIDE RECORDS SUMMARY | 2025-01-23 12:22 | XMS_ITS | Clinical Summary ---
Author Organization [facility] Address [address] [facility] [address] [place] [address] Phone Care Team Providers Care Elevators Inspector Name Role Phone Arjun Dunn MD Primary Care Provider +1- [phone] Allergies No known active allergies Medications acetaminophen (TYLENOL EXTRA STRENGTH) 500 MG tablet Take 500 mg by mouth every 6 (six) hours as needed for pain (specific location in comments). Active atorvastatin (LIPITOR) 10 MG tablet Take 10 mg by mouth daily. Active hydroCHLOROthia zide (HYDRODIURIL) 25 MG tablet Take 25 mg by mouth daily. Active lisinopril (PRINIVIL,ZESTR IL) 10 MG tablet Take 10 mg by mouth daily. Active omeprazole (PRILOSEC) 20 MG capsule Take 20 mg by mouth daily. Active oxyCODONE 5 MG immediate release tablet Take 5 mg by mouth every 4 (four) hours as needed for moderate pain. Active oxyCODONE 5 MG immediate release tablet Take 10 mg by mouth every 4 (four) hours as needed for severe pain. Active docusate sodium (COLACE) 100 MG capsule Take 100 mg by mouth 2 (two) times a day. Active warfarin (COUMADIN) 5 MG tablet Take 5 mg by mouth daily. 02/17/2018 Active naproxen sodium (ALEVE) 220 MG tablet Take 220 mg by mouth 2 (two) times a day with meals. Active Encounters Date Type Department Care Team Description 11/09/2024 9:52 AM EDT - 11/09/2024 11:59 PM EDT [facility] [address] [place] [address] Sterling Lea MD Discharge Disposition: Home or Self Care 11/07/2024 Transcribe Orders Virtual Department [address] [place] [id number] Sterling Lea MD JULIAN (nonalcoholic steatohepatitis) (Primary Dx) from Last 3 Months Social History Tobacco Use Types Packs/Day Years Used Date Smoking Tobacco: Never Assessed Education Answer Date Recorded Are you interested in more education? Not on rafat e 08/20/2022 Are you concerned about learning? Not on file 08/20/2022 No 08/20/2022 No 08/20/2022 Digital Access Answer Date Recorded No 09/18/2022 No 09/18/2022 No 09/18/2022 Reliable internet access at home? Not on file 09/18/2022 Device with a working camera? Not on file Sex and Gender Information Value Date Recorded Sex Assigned at Not on file Legal Sex Male 10:04 PM EDT Gender Identity Not on file Sexual Orientation Not on file Last Filed Vital Signs Vital Sign Reading Time Taken Comments Blood Pressure 140/80 06/13/2019 9:55 AM EST Pulse 74 06/13/2019 9:55 AM EST Temperature 37.2 C (98.9 F) 03/09/2018 10:20 AM EST Respiratory Rate 18 03/09/2018 10:00 AM EST Oxygen Saturation 97% 03/14/2018 10:53 AM EST Inhaled Oxygen Concentration - - Weight 99.8 kg (220 lb) 02/11/2022 10:09 AM EDT Height - - Body Mass Index - - Plan of Treatment Health Maintenance Due Date Last Done Comments LIPID PANEL 1948 DEPRESSION SCREENING 1960 SMOKING Hx and SMOKELESS TOBACCO SCREENING 1961 HEPATITIS A VACCINES (1 of 2 - Risk 2-dose series) 09/13/1967 PNEUMOCOCCAL VACCINES (50+ years) (1 of 2 - PCV) 09/13/1967 ZOSTER VACCINES (2 of 3) 08/29/2012 07/04/2012 Adult Td,Tdap Booster 12/09/2020 12/09/2010, 006 RSV VACCINE (1 - 1-dose 75+ series) 09/13/2023 INFLUENZA VACCINE (#1) 2024 0, 01/11/2019, 01/23/2018, Additional history exists COVID-19 VACCINE ( season) 2024 06/25/2020 CREATININE LEVEL 03/27/2025 03/27/2024, 08/2022, 02/09/2022, Additional history exists POTASSIUM LEVEL 03/27/2025 03/27/2024, 08/2022, 12/31/2021, Additional history exists HEPATITIS C SCREENING Completed 06/08/2018, 018 HIB VACCINES Aged Out No longer eligi ble based on patient's age to complete this topic MENINGOCOCCAL VACCINES (ACWY) Aged Out No longer eligible based on patient's age to complete this topic MENINGOCOCCAL VACCINES (B) Aged Out N o longer eligible based on patient's age to complete this topic Medical Devices Not on file Procedures Procedure Name Priority Date/Time Associated Diagnosis Comments US ABDOMEN LIMITED RIGHT UPPER QUADRANT Routine 11/09/2024 10:35 AM EDT JULIAN (nonalcoholic steatohepatitis) COMPREHENSIVE METABOLIC PANEL Routine 03/27/2024 3:28 PM EST Gastroesophageal reflux disease, unspecified whether esophagitis present LIVER FIBROSIS TEST Routine 06/08/2018 2 :34 PM EST Hemochromatosis, hereditary Nonalcoholic steatohepatitis (JULIAN) from Last 3 Months or Most Recently Relevant to Health Maintenance Results * US ABDOMEN LIMITED RIGHT UPPER QUADRANT (11/09/2024 10:35 AM EDT) Anatomical Region Laterality Modality Abdomen Ultrasound 11/09/2024 11:3 1 AM EDT Impressions 11/09/2024 11:34 AM EDT 1. Normal gallbladder. 2. No biliary ductal dilatation. 3. The liver is diffusely echogenic. This is a nonspecific finding indicating diffuse hepatocellular disease and limiting the sensitivity of this exam. In the correct clinical scenario, this commonly represents fatty liver. Within the limitations of this study, there is no sonographic evidence for focal hepatic lesion. Narrative 11/09/2024 11:34 AM EDT US ABDOMEN LIMITED RIGHT UPPER QUADRANT Referring clinician's provided indication for this examination in [facility]: Outside Radiology Order; JULIAN TECHNIQUE: US Abdominal limited right upper quadrant. COMPARISON: 07/02/2024 FINDINGS: Liver: Echogenic liver. No suspicious sonographic evidence for solid liver lesion. Main Portal Vein: Patent with normal direction of flow. Gallbladder: No gallstones or gallbladder wall thickening. Sellers's Sign: Negative. Biliary: No intrahepatic or extrahepatic biliary ductal dilatation. The common bile duct measures 3 mm. Right Kidney: No stones or hydronephrosis. The right kidney measures 10.7 cm. Procedure Note Asad Kenny MD - 11/09/2024 US ABDOMEN LIMITED RIGHT UPPER QUADRANT Referring clinician's provided indication for this examination in [facility]:Outside Radiology Order; JULIAN TECHNIQUE: US Abdominal limited right upper quadrant. COMPARISON: 07/02/2024 FINDINGS: Liver: Echogenic liver. No suspicious sonographic evidence for solid liverlesion. Main Portal Vein: Patent with normal direction of flow. Gallbladder: No gallstones or gallbladder wall thickening. Sellers's Sign: Negative. Biliary: No intrahepatic or extrahepatic biliary ductal dilatation. The common bile duct measures 3 mm. Right Kidney: No stones or hydronephrosis. The right kidney measures 10.7cm. IMPRESSION: 1. Normal gallbladder. 2. No biliary ductal dilatation. 3. The liver is diffusely echogenic. This is a nonspecific findingindicating diffuse hepatocellular disease and limiting the sensitivity ofthis exam. In the correct clinical scenario, this commonly representsfatty liver. Within the limitations of this study, there is nosonographic evidence for focal hepatic lesion. Sterling Lea MD IM US ABDOMEN Final Result * (ABNORMAL) Comprehensive metabolic panel (03/27/2024 3:28 PM EST) SODIUM 142 133 - 146 mmol/L [facility] POTASSIUM 3.7 3.3 - 5.1 mmol/L [facility] CHLORIDE 104 96 - 108 mmol/L [facility] CO2 27 21 - 35 mmol/L [facility] BUN 20(H) 6 - 19 mg/dL [facility] CREATININE 1.00 0.5 - 1.5 mg/dL [facility] GLUCOSE 88 70 - 99 mg/dL [facility] ALBUMIN 4.5 3.9 - 4.8 g/dL [facility] TOTAL PROTEIN 7.3 6.5 - 8.0 g/dL [facility] CALCIUM 9.6 8.4 - 10.3 mg/dL [facility] ALKALINE PHOSPHATASE 58 39 - 117 U/L [facility] TOTAL BILIRUBIN 0.5 0.0 - 1.2 mg/dL [facility] AST 31 0 - 37 U/L [facility] ALT 27 0 - 40 U/L [facility] GLOBULIN 2.8 1 - 4.8 g/dL [facility] EGFR 78 >59 mL/min/1.7 3m2 [facility] Comment:Estimated glomerular filtration rate calculated using the CKD-EPI refit equation. ANION GAP 15 10 - 20 mmol/L [facility] Blood 03/27/2024 3:28 PM EST 03/27/2024 3:34 PM EST us Sterling Lea MD LAB BLOOD ORDERABLES Final R esult Performing Organization Address City/State/[facility] Co de Phone Number [address] [phone] * (ABNORMAL) Liver fibrosis test (06/08/2018 2:34 PM EST) Fibrosis score 0.64 [facility] Interpretation (Fibrosis) SEE NOTE [facility] Comment: (NOTE) advanced fibrosis Fibro Test Score Metavir Score 0.00-0.21 F0 no fibrosis 0.22-0.27 F0-F1 0.28-0.31 F1 minimal fibrosis 0.32-0.48 F1-F2 0.49-0.58 F2 moderate fibrosis 0.59-0.72 F3 advanced fibrosis 0.73-0.74 F3-F4 0.75-1.00 F4 severe fibrosis HCV Fibrosis Grade F3 [facility] NECROINFLAMM SCORE 0.17 [facility] NECROINFLAMM GRADE A0 [facility] NECROINFLAMM INTERP SEE NOTE [facility] Comment: (NOTE) no activity ActiTest Score Metavir Score 0.00-0.17 A0 no activity 0.18-0.29 A0-A1 0.30-0.36 A1 minimal activity 0.37-0.52 A1-A2 0.53-0.60 A2 significant activity 0.61-0.62 A2-A3 0.63-1.00 A3 severe activity A2 Macroglobulin 334(H) 106 - 279 mg/dL [facility] Haptoglobin 122 43 - 212 mg/dL [facility] Apolipoprotein A1 116 94 - 176 mg/dL [facility] TOTAL BILIRUBIN 0.4 0.2 - 1.2 mg/dL [facility] GGT 34 3 - 70 U/L [facility] ALT 24 9 - 46 U/L [facility] Specimen/Product ID [id number] [facility] Comments (Chemistry) SEE NOTE [facility] Comment: (NOTE) The reliability of results is dependent on compliance with the preanalytical and analytical conditions recommended by [employer]. The tests have to be deferred for: [...] The performance characteristics have been determined by [facility]. It has not been cleared or approved by the U.S. Food and Drug Administration. Performance characteristics refer to the analytical performance of the test. [employer], the associated logo, [employer] and all associated [employer] blackwood are the registered trademarks of [employer]. All third constitution party blackwood - (R) and (TM) - are the property of their respective owners. (C) 2496-8613 [employer]. All rights reserved. Test performed at [employer] [facility] [address] [place] [address] Director: LINA JACOBSON MD,PHD,ANGY Blood 06/08/2018 2:34 PM EST 06/08/2018 2:40 PM EST us Sterling Lea MD LAB BLOOD ORDERABLES Final R esult [address] [address] from Last 3 Months or Most Recently Relevant to Health Maintenance Insurance MEDICARE PART A & B [facility] MEDEX SUPPLEMENT MEDICARE PART A & B [employer] MED[employer] SUPPLEMENT MEDICARE PART A & B [employer] SUPPLEMENT MEDICARE PART A & B [employer] SUPPLEMENT MEDICARE PART A & B [employer] MEDEX SUPPLEMENT Member Subscriber Plan / Payer (Ef fective 2013-Present) Name:Arjun Mcadams Relation to Subscriber:Self Name:Arjun Mcadams Payer ID:[id number] (NAIC) Type:Indemnity Address: [place] [id number] MEDICARE PART A & B [employer] MED[employer] SUPPLEMENT MEDICARE PART A & B [employer] MED[employer] SUPPLEMENT MEDICARE PART A & B [employer] MED[employer] SUPPLEMENT MEDICARE PART A & B [employer] MEDEX SUPPLEMENT Member Subscriber Plan / Payer (Ef fective 2013-Present) Name:Arjun Mcadams Relation to Subscriber:Self Name:Arjun Mcadams Payer ID:[id number] (NAIC) Type:Indemnity Address: [facility] [id number] [place] [id number] Care Teams Elevators Inspector Relationship Specialty Start Date End Date Arjun Dunn MD [address] [place] [phone] [email or web address] PCP - General 02/10/17 Additional Source Comments The information contained in this document represents components of the legal health record. It is not the complete legal health record.[facility]
--- OUTSIDE RECORDS SUMMARY | 2025-01-23 12:22 | XMS_ITS | Encounter Summary ---
Author Organization [facility] Address [address] [place] [address] [place] [address] Phone Care Team Providers Care Valet Cashier Name Role Phone Arjun Dunn MD Primary Care Provider +1- [phone] Reason for Referral * Physical Therapy (Routine) - Closed Specialty Diagnoses / Procedures Referred By Nakul philip Referred To Contact Physical Therapy Diagnoses Encounter for rehabilitation Todd Sellers MD Phone: tel: fax: [address] [address] Phone: tel: Referral ID Status Reason Start Date Expiration Date Visits Re quested Visits Authorized [id number] Closed 03/22/2018 04/24/2019 99 [phone] Encounter Details Date Type Department Care Team (Latest Contact Info) Description 03/01/2018 Transcribe Orders [facility] [address] [place] [address] Todd Sellers MD [address] [place] [address] [place] [phone] Encounter for rehabilitation (Primary Dx) Social History Tobacco Use Types Packs/Day Years Used Date Smoking Tobacco: Never Assessed Sex and Gender Information Value Date Recorded Sex Assigned at Not on file Legal Sex Male 10:04 PM EDT Gender Identity Not on file Sexual Orientation Not on file documented as of this encounter Plan of Treatment Scheduled Referrals Name Type Priority Associated Diagnoses Orde r Schedule Ambulatory referral to [facility] Physical Therapy Outpatient Referral Routine Encounter for rehabilitation Ordered: 03/01/2018 documented as of this encounter Visit Diagnoses Diagnosis Encounter for rehabilitation- Primary documented in this encounter Care Teams Valet Cashier Relationship Specialty Start Date End Date Arjun Dunn MD [address] [place] [phone] [email or web address] PCP - General 02/10/17 documented as of this encounter Additional Source Comments The information contained in this document represents components of the legal health record. It is not the complete legal health record.[facility]
--- OUTSIDE RECORDS SUMMARY | 2025-01-23 12:22 | XMS_ITS | Encounter Summary ---
Author Organization [facility] Address [address] [facility] [address] [place] [address] Phone Care Team Providers Care Sane Rn Name Role Phone Arjun Dunn MD Primary Care Provider +1- [phone] Encounter Details Date Type Department Care Team (Latest Contact Info) Description 03/27/2024 Transcribe Orders Virtual Department [address] [place] [address] Sterling Lea MD [address] [place] [phone] [email or web address] WEST (nonalcoholic steatohepatitis) (Primary Dx) Social History Tobacco Use Types [...] documented as of this encounter Results * US ABDOMEN LIMITED RIGHT UPPER QUADRANT (07/02/2024 9:35 AM EDT) Anatomical Region Laterality Modality Abdomen Ultrasound 07/02/2024 10:3 0 AM EDT Impressions 07/02/2024 10:38 AM EDT No biliary obstruction. 1. Markedly heterogeneous increased hepatic echogenicity, compatible with chronic hepatocellular disease, most commonly fatty liver. Narrative 07/02/2024 10:38 AM EDT US ABDOMEN LIMITED RIGHT UPPER QUADRANT Referring clinician's provided indication for this examination in [facility]: Outside Radiology Order; west TECHNIQUE: US Abdominal limited right upper quadrant. COMPARISON: Abdomen ultrasound 01/09/2024, prior studies going back to abdomen MRI 02/16/2022 FINDINGS: Liver: Heterogeneous increased hepatic echogenicity. There is a 6 x 4 x 6 mm cyst. Main Portal Vein: Patent with normal direction of flow. Gallbladder: No gallstones or gallbladder wall thickening. Sellers's Sign: Negative. Biliary: No intrahepatic or extrahepatic biliary ductal dilatation. The common bile duct measures 3 mm. Procedure Note Corinna Roche MD - 07/02/2024 US ABDOMEN LIMITED RIGHT UPPER QUADRANT Referring clinician's provided indication for this examination in [facility]:Outside Radiology Order; west TECHNIQUE: US Abdominal limited right upper quadrant. COMPARISON: Abdomen ultrasound 01/09/2024, prior studies going back toabdomen MRI 02/16/2022 FINDINGS: Liver: Heterogeneous increased hepatic echogenicity. There is a 6 x 4 x 6mm cyst. Main Portal Vein: Patent with normal direction of flow. Gallbladder: No gallstones or gallbladder wall thickening. Sellers's Sign: Negative. Biliary: No intrahepatic or extrahepatic biliary ductal dilatation. The common bile duct measures 3 mm. IMPRESSION: No biliary obstruction. 1. Markedly heterogeneous increased hepatic echogenicity, compatible withchronic hepatocellular disease, most commonly fatty liver. Sterling Lea MD [facility] US ABDOMEN Final Result documented in this encounter Visit Diagnoses Diagnosis WEST (nonalcoholic steatohepatitis)- Primary Other chronic nonalcoholic liver disease WEST (nonalcoholic steatohepatitis) Other chronic nonalcoholic liver disease documented in this encounter Care Teams Sane Rn Relationship Specialty Start Date End Date Arjun Dunn MD [address] [place] [phone] [email or web address] PCP - General 02/10/17 documented as of this encounter Additional Source Comments The information contained in this document represents components of the legal health record. It is not the complete legal health record.[facility]
--- OUTSIDE RECORDS SUMMARY | 2025-01-23 12:22 | XMS_ITS | Encounter Summary ---
Author Organization [facility] Address [address] [facility] [address] [place] [phone] Phone Care Team Providers Care Geology Teacher Name Role Phone Arjun Dunn MD Primary Care Provider +1- [phone] Encounter Details Date Type Department Care Team (Latest Contact Info) Description 11/07/2024 Transcribe Orders Virtual Department [address] [place] [address] Sterling Lea MD [address] [place] [phone] [email or web address] JULIAN (nonalcoholic steatohepatitis) (Primary Dx) Social History Tobacco [...] clinician's provided indication for this examination in [facility]: Outside Radiology Order; JULIAN TECHNIQUE: US Abdominal [...] clinician's provided indication for this examination in [facility]:Outside Radiology Order; JULIAN TECHNIQUE: US Abdominal limited [...] is nosonographic evidence for focal hepatic lesion. us Sterling Lea MD IMG US ABDOMEN Final Result documented in this encounter Visit Diagnoses Diagnosis JULIAN (nonalcoholic steatohepatitis)- Primary Other chronic nonalcoholic liver disease JULIAN (nonalcoholic steatohepatitis) Other chronic nonalcoholic liver disease documented in this encounter Care Teams Geology Teacher Relationship Specialty Start Date End Date Arjun Dunn MD [address] [place] [address] [email or web address] PCP - General 02/10/17 documented as of this encounter Additional Source Comments The information contained in this document represents components of the legal health record. It is not the complete legal health record.[facility]
--- OUTSIDE RECORDS SUMMARY | 2025-01-23 12:22 | XMS_ITS | Encounter Summary ---
Author Organization [facility] Address [address] [facility] [address] [place] [address] Phone Care Team Providers Care Tangled Yarn Worker Name Role Phone Arjun Dunn MD Primary Care Provider +1- [phone] Encounter Details Date Type Department Care Team (Latest Contact Info) Description 04/13/2017 Transcribe Orders [facility] Specimen Processing [address] [place] [address] Sterling Lea MD [address] [place] [phone] [email or web address] Hemochromatosis, unspecified hemochromatosis type (Primary Dx) Social History Tobacco Use Types Packs/Day Years Used Date Smoking Tobacco: Never Assessed Sex and Gender Information Value Date Recorded Sex Assigned at Not on file Legal Sex Male 10:04 PM EDT Gender Identity Not on file Sexual Orientation Not on file documented as of this encounter Plan of Treatment Not on file documented as of this encounter Results * Iron and iron binding capacity (04/13/2017 9:46 AM EST) IRON 92 45 - 160 ug/dL [facility] IRON BINDING CAPACITY 412 228 - 428 ug/dL [facility] TRANSFERRIN SATURAT. 22 20 - 55 % [facility] Blood 04/13/2017 9:46 AM EST 04/13/2017 9:49 AM EST us Sterling Lea MD LAB BLOOD ORDERABLES Final R esult [facility] [address] [place] [address] * Ferritin (04/13/2017 9:46 AM EST) FERRITIN 61 30 - 400 ug/L [facility] Blood 04/13/2017 9:46 AM EST 04/13/2017 9:49 AM EST us Sterling Lea MD LAB BLOOD ORDERABLES Final R esult [facility] [address] [place] [address] * (ABNORMAL) CBC and differential (04/13/2017 9:46 AM EST) WBC 5.92 3.40 - 11.20 K/uL [facility] RBC 4.88 4.50 - 5.50 M/uL [facility] HGB 14.3 13.0 - 17.0 g/dL [facility] HCT 43.6 40.0 - 51.0 % [facility] PLT 123(L) 130 - 400 K/uL [facility] MCV 89.3 79.0 - 98.0 fL [facility] MCH 29.3 27.0 - 34.8 pg [facility] MCHC 32.8 31.5 - 36.0 g/dL [facility] RDW 12.9 10.8 - 14.6 % [facility] MPV 12.8(H) 9.4 - 12.4 fl [facility] NRBC 0.00 /100 WBCs [facility] ABSOLUTE NRBC 0.00 K/uL [facility] DIFF METHOD Auto [facility] NEUTS 57.7 45.30 - 77.70 % [facility] LYMPHS 30.2 12.30 - 39.70 % [facility] MONOS 6.8 4.10 - 12.80 % [facility] EOS 4.6 0 - 7.2 % [facility] BASOS 0.5 0 - 2.80 % [facility] Granulocytes, immature (%) 0.2 0.0 - 0.9 % [facility] ABSOLUTE NEUTS 3.42 1.40 - 7.70 K/uL [facility] ABSOLUTE LYMPHS 1.79 0.60 - 3.20 K/uL [facility] ABSOLUTE MONOS 0.40 0.11 - 0.59 K/uL [facility] ABSOLUTE EOS 0.27 0.01 - 0.50 K/uL [facility] ABSOLUTE BASOS 0.03 0.00 - 0.08 K/uL [facility] Granulocytes, immature 0.01 0.00 - 0.05 K/uL [facility] Blood 04/13/2017 9:46 AM EST 04/13/2017 9:49 AM EST us Sterling Lea MD LAB BLOOD ORDERABLES Final R esult Performing Organization Address City/State/[facility] Co de Phone Number [address] [phone] documented in this encounter Visit Diagnoses Diagnosis Hemochromatosis, unspecified hemochromatosis type- Primary documented in this encounter Care Teams Tangled Yarn Worker Relationship Specialty Start Date End Date Arjun Dunn MD [address] [place] [phone] [email or web address] PCP - General 02/10/17 documented as of this encounter Additional Source Comments The information contained in this document represents components of the legal health record. It is not the complete legal health record.[facility]
--- OUTSIDE RECORDS SUMMARY | 2025-01-23 12:22 | XMS_ITS | Encounter Summary ---
Author Organization [facility] Address [address] [facility] [address] [place] [address] Phone Care Team Providers Care Pearl Technician Name Role Phone Arjun Dunn MD Primary Care Provider +1- [phone] Encounter Details Date Type Department Care Team (Latest Contact Info) Description 05/11/2017 Transcribe Orders [facility] Specimen Processing [address] [place] [address] Sterling Lea MD [address] [place] [phone] [email or web address] Hemochromatosis, unspecified hemochromatosis type (Primary Dx) [...] as of this encounter Results * Ferritin (05/11/2017 10:05 AM EST) FERRITIN 36 30 - 400 ug/L [facility] Blood 05/11/2017 10:0 5 AM EST 05/11/2017 10:06 AM EST us Sterling Lea MD LAB BLOOD ORDERABLES Final R esult [facility] [address] [place] [address] * (ABNORMAL) Iron and iron binding capacity (05/11/2017 10:05 AM EST) IRON 58 45 - 160 ug/dL [facility] IRON BINDING CAPACITY 403 228 - 428 ug/dL [facility] TRANSFERRIN SATURAT. 14(L) 20 - 55 % [facility] Blood 05/11/2017 10:0 5 AM EST 05/11/2017 10:06 AM EST us Sterling Lea MD LAB BLOOD ORDERABLES Final R esult [facility] [address] [place] [address] * CBC and differential (05/11/2017 10:05 AM EST) WBC 6.52 3.40 - 11.20 K/uL [facility] RBC 4.64 4.50 - 5.50 M/uL [facility] HGB 13.6 13.0 - 17.0 g/dL [facility] HCT 41.4 40.0 - 51.0 % [facility] PLT 141 130 - 400 K/uL [facility] MCV 89.2 79.0 - 98.0 fL [facility] MCH 29.3 27.0 - 34.8 pg [facility] MCHC 32.9 31.5 - 36.0 g/dL [facility] RDW 12.5 10.8 - 14.6 % [facility] MPV 12.4 9.4 - 12.4 fl [facility] NRBC 0.00 /100 WBCs [facility] ABSOLUTE NRBC 0.00 K/uL [facility] DIFF METHOD Auto [facility] NEUTS 71.1 45.30 - 77.70 % [facility] LYMPHS 18.7 12.30 - 39.70 % [facility] MONOS 5.5 4.10 - 12.80 % [facility] EOS 4.4 0 - 7.2 % [facility] BASOS 0.3 0 - 2.80 % [facility] Granulocytes, immature (%) 0.0 0.0 - 0.9 % [facility] ABSOLUTE NEUTS 4.63 1.40 - 7.70 K/uL [facility] ABSOLUTE LYMPHS 1.22 0.60 - 3.20 K/uL [facility] ABSOLUTE MONOS 0.36 0.11 - 0.59 K/uL [facility] ABSOLUTE EOS 0.29 0.01 - 0.50 K/uL [facility] ABSOLUTE BASOS 0.02 0.00 - 0.08 K/uL [facility] Granulocytes, immature 0.00 0.00 - 0.05 K/uL [facility] Blood 05/11/2017 10:0 5 AM EST 05/11/2017 10:06 AM EST us Sterling Lea MD LAB BLOOD ORDERABLES Final R esult [address] [address] documented in this encounter Visit Diagnoses Diagnosis Hemochromatosis, unspecified hemochromatosis type- Primary documented in this encounter Care Teams Pearl Technician Relationship Specialty Start Date End Date Arjun Dunn MD [address] [place] [phone] [email or web address] PCP - General 02/10/17 documented as of this encounter Additional Source Comments The information contained in this document represents components of the legal health record. It is not the complete legal health record.[facility]
--- OUTSIDE RECORDS SUMMARY | 2025-01-23 12:22 | XMS_ITS | Encounter Summary ---
Author Organization [facility] Address [address] [facility] [address] [place] [address] Phone Care Team Providers Care Hospital Medical Assistant Name Role Phone Arjun Dunn MD Primary Care Provider +1- [phone] Encounter Details Date Type Department Care Team (Latest Contact Info) Description 03/02/2017 Transcribe Orders [facility] Therapeutic Phlebotomy [address] [place], [place] [id number] Sterling Lea MD [address] [place] [address] [email or web address] Hereditary hemochromatosis (Primary Dx) Social History Tobacco Use Types Packs/Day Years Used Date Smoking Tobacco: Never Assessed Sex and Gender Information Value Date Recorded Sex Assigned at Not on file Legal Sex Male 10:04 PM EDT Gender Identity Not on file Sexual Orientation Not on file documented as of this encounter Plan of Treatment Not on file documented as of this encounter Procedures Procedure Name Priority Date/Time Associated Diagnosis Comments THERAPEUTIC PHLEBOTOMY Routine 03/02/2017 2:20 PM EST Hereditary hemochromatosis documented in this encounter Results * Therapeutic phlebotomy (06/08/2017 9:48 AM EST) Narrative Latrice Gonzalez - 06/08/2017 9:48 AM EST See Therapeutic Phlebotomy flowsheet for procedure details. us Sterling Lea MD PROCEDURE/MINOR SURGICAL PER FORMABLES Final Result * Therapeutic phlebotomy (05/25/2017 9:47 AM EST) Narrative Sandrita Levy - 05/25/2017 9:47 AM EST See Therapeutic Phlebotomy flowsheet for procedure details. Patient clotted after 15ml drawn. Result Cindy Lea MD PROCEDURE/MINOR SURGICAL PER FORMABLES Final Result * Therapeutic phlebotomy (05/11/2017 9:49 AM EST) Narrative Latrice Gonzalez - 05/11/2017 9:49 AM EST See therapeutic phlebotomy flowsheet for procedure details. Result Cindy Lea MD PROCEDURE/MINOR SURGICAL PER FORMABLES Final Result * Therapeutic phlebotomy (04/27/2017 9:50 AM EST) Narrative Latrice Gonzalez - 04/27/2017 9:50 AM EST See therapeutic phlebotomy flowsheet for procedure details. Result Cindy Lea MD PROCEDURE/MINOR SURGICAL PER FORMABLES Final Result * Therapeutic phlebotomy (04/13/2017 10:07 AM EST) Narrative Latrice Gonzalez - 04/13/2017 10:07 AM EST See therapeutic phlebotomy flowsheet for procedure details. Result Cindy Lea MD PROCEDURE/MINOR SURGICAL PER FORMABLES Final Result * Therapeutic phlebotomy (03/30/2017 9:49 AM EST) Narrative Latrice Gonzalez - 03/30/2017 9:49 AM EST See Therapeutic Phlebotomy flowsheet for procedure details. Result Cindy Lea MD PROCEDURE/MINOR SURGICAL PER FORMABLES Final Result * Therapeutic phlebotomy (03/16/2017 9:47 AM EST) Narrative Latrice Gonzalez - 03/16/2017 9:47 AM EST See Therapeutic Phlebotomy flowsheet for procedure details. Result Cindy Lea MD PROCEDURE/MINOR SURGICAL PER FORMABLES Final Result * Therapeutic phlebotomy (03/02/2017 2:20 PM EST) Narrative Sandrita Levy - 03/02/2017 2:20 PM EST See Therapeutic Phlebotomy flowsheet for procedure details. Result Cindy Lea MD PROCEDURE/MINOR SURGICAL PER FORMABLES Final Result documented in this encounter Visit Diagnoses Diagnosis Hereditary hemochromatosis- Primary Hereditary hemochromatosis Hereditary hemochromatosis Hemochromatosis, unspecified hemochromatosis type Hereditary hemochromatosis Hereditary hemochromatosis Hereditary hemochromatosis Hereditary hemochromatosis Hereditary hemochromatosis documented in this encounter Care Teams Hospital Medical Assistant Relationship Specialty Start Date End Date Arjun Dunn MD [address] [place] [phone] [email or web address] PCP - General 02/10/17 documented as of this encounter Additional Source Comments The information contained in this document represents components of the legal health record. It is not the complete legal health record.[facility]
--- OUTSIDE RECORDS SUMMARY | 2025-01-23 12:22 | XMS_ITS | Encounter Summary ---
Author Organization [facility] Address [address] [facility] [address] [place] [address] Phone Care Team Providers Care Car Servicer Name Role Phone Arjun Dunn MD Primary Care Provider +1- [phone] Encounter Details Date Type Department Care Team (Latest Contact Info) Description 03/16/2017 Transcribe Orders [facility] Laboratory [address] [place] [address] Sterling Lea MD [address] [place] [phone] [email or web address] Hereditary hemochromatosis (Primary Dx) Social History [...] as of this encounter Results * Ferritin (03/16/2017 10:02 AM EST) FERRITIN 99 30 - 400 ug/L [facility] Blood 03/16/2017 10:0 2 AM EST 03/16/2017 10:03 AM EST us Sterling Lea MD LAB BLOOD ORDERABLES Final R esult [facility] [address] [place] [address] * Iron and iron binding capacity (03/16/2017 10:02 AM EST) IRON 86 45 - 160 ug/dL [facility] IRON BINDING CAPACITY 377 228 - 428 ug/dL [facility] TRANSFERRIN SATURAT. 23 20 - 55 % [facility] Blood 03/16/2017 10:0 2 AM EST 03/16/2017 10:03 AM EST us Sterling Lea MD LAB BLOOD ORDERABLES Final R esult Performing Organization Address City/[facility]/ZIP Co de Phone Number [address] [address] * (ABNORMAL) CBC (03/16/2017 10:02 AM EST) WBC 5.25 3.40 - 11.20 K/uL [facility] RBC 4.67 4.50 - 5.50 M/uL [facility] HGB 13.9 13.0 - 17.0 g/dL [facility] HCT 41.8 40.0 - 51.0 % [facility] PLT 139 130 - 400 K/uL [facility] MCV 89.5 79.0 - 98.0 fL [facility] MCH 29.8 27.0 - 34.8 pg [facility] MCHC 33.3 31.5 - 36.0 g/dL [facility] RDW 12.7 10.8 - 14.6 % [facility] MPV 12.8(H) 9.4 - 12.4 fl [facility] NRBC 0.00 /100 WBCs [facility] ABSOLUTE NRBC 0.00 K/uL [facility] Blood 03/16/2017 10:0 2 AM EST 03/16/2017 10:03 AM EST us Sterling Lea MD LAB BLOOD ORDERABLES Final R esult Performing Organization Address City/[facility]/ZIP Co de Phone Number [address] [address] documented in this encounter Visit Diagnoses Diagnosis Hereditary hemochromatosis- Primary documented in this encounter Care Teams Car Servicer Relationship Specialty Start Date End Date Arjun Dunn MD [address] [place] [phone] [email or web address] PCP - General 02/10/17 documented as of this encounter Additional Source Comments The information contained in this document represents components of the legal health record. It is not the complete legal health record.[facility]
--- OUTSIDE RECORDS SUMMARY | 2025-01-23 12:22 | XMS_ITS | Encounter Summary ---
Author Organization [facility] Address [address] [facility] [address] [place] [address] Phone Care Team Providers Care Pillowcase Cutter Name Role Phone Arjun Dunn MD Primary Care Provider +1- [phone] Encounter Details Date Type Department Care Team (Latest Contact Info) Description 06/08/2017 Transcribe Orders [facility] Therapeutic Phlebotomy [address] [place], [place] [id number] Sterling Lea MD [address] [place] [address] [email or web address] Hereditary hemochromatosis (Primary Dx) Social History [...] Procedure Name Priority Date/Time Associated Diagnosis Comments IRON AND IRON BINDING CAPACITY Routine 06/08/2017 9:47 AM EST Hereditary hemochromatosis CBC Routine 06/08/2017 9:47 AM EST Hereditary hemochromatosis FERRITIN Routine 06/08/2017 9:47 AM EST Hereditary hemochromatosis documented in this encounter Results * (ABNORMAL) Iron and iron binding capacity (06/08/2017 9:47 AM EST) IRON 63 45 - 160 ug/dL [facility] IRON BINDING CAPACITY 406 228 - 428 ug/dL [facility] TRANSFERRIN SATURAT. 16(L) 20 - 55 % [facility] Blood 06/08/2017 9:47 AM EST 06/08/2017 9:49 AM EST us Sterling Lea MD LAB BLOOD ORDERABLES Final R esult Performing Organization Address City/[facility]/ZIP Co de Phone Number [address] [address] * (ABNORMAL) Ferritin (06/08/2017 9:47 AM EST) FERRITIN 24(L) 30 - 400 ug/L [facility] Blood 06/08/2017 9:47 AM EST 06/08/2017 9:49 AM EST us Sterling Lea MD LAB BLOOD ORDERABLES Final R esult Performing Organization Address [facility] Co de Phone Number [address] [address] * (ABNORMAL) CBC (06/08/2017 9:47 AM EST) WBC 4.89 3.40 - 11.20 K/uL [facility] RBC 4.48(L) 4.50 - 5.50 M/uL [facility] HGB 13.0 13.0 - 17.0 g/dL [facility] HCT 39.7(L) 40.0 - 51.0 % [facility] PLT 134 130 - 400 K/uL [facility] MCV 88.6 79.0 - 98.0 fL [facility] MCH 29.0 27.0 - 34.8 pg [facility] MCHC 32.7 31.5 - 36.0 g/dL [facility] RDW 12.6 10.8 - 14.6 % [facility] MPV 12.8(H) 9.4 - 12.4 [facility] NRBC 0.00 /100 WBCs [facility] ABSOLUTE NRBC 0.00 K/uL [facility] Blood 06/08/2017 9:47 AM EST 06/08/2017 9:49 AM EST us Sterling Lea MD LAB BLOOD ORDERABLES Final R esult [address] [address] documented in this encounter Visit Diagnoses Diagnosis Hereditary hemochromatosis- Primary documented in this encounter Care Teams Pillowcase Cutter Relationship Specialty Start Date End Date Arjun Dunn MD [address] [place] [phone] [email or web address] PCP - General 02/10/17 documented as of this encounter Additional Source Comments The information contained in this document represents components of the legal health record. It is not the complete legal health record.[facility]
--- OUTSIDE RECORDS SUMMARY | 2025-01-23 12:23 | XMS_ITS | Encounter Summary ---
Author Organization [facility] Address [address] [facility] [address] [place] [address] Phone Care Team Providers Care Bag Bundler Name Role Phone Arjun Dunn MD Primary Care Provider +1- [phone] Encounter Details Date Type Department Care Team (Late st Contact Info) Description 02/02/2022 Procedure Pass [address] [place] [address] Social History Tobacco Use Types Packs/Day Years Used Date Smoking Tobacco: Never Assessed Sex and Gender Information Value Date Recorded Sex Assigned at Not on file Legal Sex Male 10:04 PM EDT Gender Identity Not on file Sexual Orientation Not on file documented as of this encounter Plan of Treatment Not on file documented as of this encounter Visit Diagnoses Not on filedocumented in this encounter Care Teams Bag Bundler Relationship Specialty Start Date End Date Arjun Dunn MD [address] [place] [address] PCP - General 02/10/17 documented as of this encounter Additional Source Comments The information contained in this document represents components of the legal health record. It is not the complete legal health record.[facility]
--- OUTSIDE RECORDS SUMMARY | 2025-01-23 12:23 | XMS_ITS | Encounter Summary ---
Author Organization [facility] Address [address] [facility] [address] [place] [address] Phone Care Team Providers Care Plate Grainer Apprentice Name Role Phone Arjun Dunn MD Primary Care Provider +1- [phone] Encounter Details Date Type Department Care Team (Latest Contact Info) Description 06/22/2017 Transcribe Orders [facility] Therapeutic Phlebotomy [address] [place] [address] Sterling Lea MD [address] [place] [address] [email or web address] Hemochromatosis, unspecified hemochromatosis type (Primary Dx) [...] as of this encounter Visit Diagnoses Diagnosis Hemochromatosis, unspecified hemochromatosis type- Primary documented in this encounter Care Teams Plate Grainer Apprentice Relationship Specialty Start Date End Date Arjun Dunn MD [address] [place] [address] PCP - General 02/10/17 documented as of this encounter Additional Source Comments The information contained in this document represents components of the legal health record. It is not the complete legal health record.[facility]
--- OUTSIDE RECORDS SUMMARY | 2025-01-23 12:23 | XMS_ITS | Encounter Summary ---
Author Organization [facility] Address [address] [facility] [address] [facility] [address] [place] [address] Phone Care Team Providers Care Sales Representative Consultant Name Role Phone Arjun Dunn MD Primary Care Provider +1- [phone] Encounter Details Date Type Department Care Team (Latest Contact Info) Description 01/22/2021 Transcribe Orders Virtual Department [address] [place] [address] Sterling Lea MD [address] [place] [phone] [email or web address] Hemochromatosis, unspecified hemochromatosis type (Primary Dx) [...] as of this encounter Results * US LIVER WITH ELASTOGRAPHY (02/19/2021 11:02 AM EDT) Anatomical Region Laterality Modality Abdomen Ultrasound 02/19/2021 11:0 5 AM EDT Impressions 02/19/2021 11:10 AM EDT 1. Stable median shear wave speed measuring 1.59 m/s (previously 1.51). In the absence of other known clinical signs, rules out compensated advanced chronic liver disease. If there are known clinical signs, may need further testing for confirmation. 2. Chronic hepatic steatosis. New subcentimeter right hepatic lobe cyst. 3. CBD not visualized. MEDIAN SHEAR WAVE SPEED: 1.3 m/s: High probability of being normal < 1.7 m/s: In the absence of other known clinical signs, rules out compensated advanced chronic liver disease. If there are known clinical signs, may need further testing for confirmation 1.7-2.1 m/s: Suggestive of compensated advanced chronic liver disease, but need further test for confirmation >2.1 m/s: Rules in compensated advanced chronic liver disease >2.4 m/s: Suggestive of compensated advanced chronic liver disease [employer] IN ULTRASOUND CONSENSUS: In the setting of elevated liver function tests, nonfasting, vascular congestion, etc., the stage of liver fibrosis may be overestimated. In some patients with NAFLD, the cut-off values for compensated advanced chronic liver disease may be lower. In causes other than viral hepatitis and NAFLD, the cut-off values are not well established. Narrative 02/19/2021 11:10 AM EDT COMPARISON: 03/26/2020. TECHNIQUE: Focused ultrasound evaluation of the liver. Volumetric sweeps were obtained and reviewed. LIVER ELASTOGRAPHY ULTRASOUND FINDINGS: LIVER: Stable diffuse increased echogenicity and sound attenuation. Stable 6 mm simple appearing right hepatic lobe cyst. New 5 mm cyst. Patent portal vein is patent with normal direction of flow. ELASTOGRAPHY: Liver stiffness measurements were obtained in the right hepatic lobe on a [employer] ultrasound machine. Point shear wave elastography technique was utilized following SRU guidelines. Measurements obtained are reported for technical adequacy. 10 valid measurements were obtained. Median shear wave speed: 1.59 m/s (7.6 kPa). IQR to median ratio: 6.92%. Gallbladder: Normal. Common bile duct: Not visualized. Pancreas: Imaged pancreas is normal. Right Kidney: No hydronephrosis. Prox Aorta/IVC: Normal. Procedure Note Filiberto Arredondo MD - 02/19/2021 COMPARISON: 03/26/2020. TECHNIQUE: Focused ultrasound evaluation of the liver. Volumetric sweeps wereobtained and reviewed. LIVER ELASTOGRAPHY ULTRASOUND FINDINGS: LIVER: Stable diffuse increased echogenicity and sound attenuation. Stable6 mm simple appearing right hepatic lobe cyst. New 5 mm cyst. Patentportal vein is patent with normal direction of flow. ELASTOGRAPHY: Liver stiffness measurements were obtained in the righthepatic lobe on a [employer] ultrasound machine. Point shear waveelastography technique was utilized following SRU guidelines. Measurementsobtained are reported for technical adequacy. 10 valid measurements wereobtained. Median shear wave speed: 1.59 m/s (7.6 kPa). IQR to medianratio: 6.92%. Gallbladder: Normal. Common bile duct: Not visualized. Pancreas: Imaged pancreas is normal. Right Kidney: No hydronephrosis. Prox Aorta/IVC: Normal. IMPRESSION: 1. Stable median shear wave speed measuring 1.59 m/s (previously 1.51).In the absence of other known clinical signs, rules out compensatedadvanced chronic liver disease. If there are known clinical signs, mayneed further testing for confirmation. 2. Chronic hepatic steatosis. New subcentimeter right hepatic lobe cyst. 3. CBD not visualized. MEDIAN SHEAR WAVE SPEED: 1.3 m/s: High probability of being normal < 1.7 m/s: In the absence of other known clinical signs, rules outcompensated advanced chronic liver disease. If there are known clinicalsigns, may need further testing for confirmation 1.7-2.1 m/s: Suggestive of compensated advanced chronic liver disease,but need further test for confirmation >2.1 m/s: Rules in compensated advanced chronic liver disease >2.4 m/s: Suggestive of compensated advanced chronic liver disease [employer] IN ULTRASOUND CONSENSUS: In the setting of elevated liver function tests, nonfasting, vascularcongestion, etc., the stage of liver fibrosis may be overestimated. Insome patients with NAFLD, the cut-off values for compensated advancedchronic liver disease may be lower. In causes other than viral hepatitisand NAFLD, the cut-off values are not well established. Sterling Lea MD IMG US ABDOMEN Final Result documented in this encounter Visit Diagnoses Diagnosis Hemochromatosis, unspecified hemochromatosis type- Primary Hemochromatosis, unspecified hemochromatosis type documented in this encounter Care Teams Sales Representative Consultant Relationship Specialty Start Date End Date Arjun Dunn MD [address] [place] [phone] (work) [email or web address] PCP - General 02/10/17 documented as of this encounter Additional Source Comments The information contained in this document represents components of the legal health record. It is not the complete legal health record.[facility]
--- OUTSIDE RECORDS SUMMARY | 2025-01-23 12:23 | XMS_ITS | Encounter Summary ---
Author Organization [facility] Address [address] [place] [address] [place] [address] Phone Care Team Providers Care Documentation Spec Name Role Phone Arjun Dunn MD Primary Care Provider +1- [phone] Encounter Details Date Type Department Care Team (Latest Contact Info) Description 03/29/2023 Transcribe Orders [facility] Laboratory [address] [place] [address] Sterling Lea MD [address] [facility] 2 [place] [address] [email or web address] JULIAN (nonalcoholic steatohepatitis) (Primary Dx); Hereditary hemochromatosis Social History Tobacco Use Types Packs/Day Years [...] as of this encounter Visit Diagnoses Diagnosis JULIAN (nonalcoholic steatohepatitis)- Primary Other chronic nonalcoholic liver disease Hereditary hemochromatosis documented in this encounter Care Teams Documentation Spec Relationship Specialty Start Date End Date Arjun Dunn MD [address] [place] [phone] [email or web address] PCP - General 02/10/17 documented as of this encounter Additional Source Comments The information contained in this document represents components of the legal health record. It is not the complete legal health record.[facility]
--- OUTSIDE RECORDS SUMMARY | 2025-01-23 12:23 | XMS_ITS | Encounter Summary ---
Author Organization [facility] Address [address] [facility] [address] [place] [address] Phone Care Team Providers Care City Carrier Name Role Phone Arjun Dunn MD Primary Care Provider +1- [phone] Encounter Details Date Type Department Care Team (Latest Contact Info) Description 01/08/2019 Transcribe Orders [facility] Therapeutic Phlebotomy 30 [place] [address] Sterling Lea MD [address] [place] [address] [email or web address] Hemochromatosis, unspecified hemochromatosis type (Primary Dx) [...] Primary documented in this encounter Care Teams City Carrier Relationship Specialty Start Date End Date Arjun Dunn MD [address] [place] [address] PCP - General 02/10/17 documented as of this encounter Additional Source Comments The information contained in this document represents components of the legal health record. It is not the complete legal health record.[facility]
--- OUTSIDE RECORDS SUMMARY | 2025-01-23 12:23 | XMS_ITS | Encounter Summary ---
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) Social History Tobacco Use Types Packs/Day Years Used Date Smoking Tobacco: Never Assessed Sex and Gender Information Value Date Recorded Sex Assigned at Not on file Legal Sex Male 10:04 PM EDT Gender Identity Not on file Sexual Orientation Not on file documented as of this encounter Plan of Treatment Not on file documented as of this encounter Results * (ABNORMAL) Liver fibrosis test (02/08/2018 11:13 AM EDT) Cow Milk Conv Class 0.62 [facility] DPT OF LAB MED AND PAT+ Neuron Specific Enolase F3 [facility] DPT OF LAB MED AND PAT+ Interleukin 2 advanced fibrosis [facility] DPT OF LAB MED AND PAT+ Comment: (NOTE) FibroTest estimates liver fibrosis FibroTest Score Stage Interpretation 0.00-0.21 F0 no fibrosis 0.21-0.27 F0-F1 no fibrosis 0.27-0.31 F1 minimal fibrosis 0.31-0.48 F1-F2 minimal fibrosis 0.48-0.58 F2 moderate fibrosis 0.58-0.72 F3 advanced fibrosis 0.72-0.74 F3-F4 advanced fibrosis 0.74-1.00 F4 severe fibrosis (Cirrhosis) ActiTest Score 0.19 [facility] DPT OF LAB MED AND PAT+ ANCA ZA at 1:20 dilution (NOTE) [facility]PT OF LAB MED AND PAT+ Comment:RESULT: A0-A1 ActiTest Interpretation no activity [facility] DPT OF LAB MED AND PAT+ Comment: (NOTE) ActiTest estimates necroinflammatory activity ActiTest Score Grade Interpretation 0.00-0.17 A0 no activity 0.17-0.29 A0-A1 no activity 0.29-0.36 A1 minimal activity 0.36-0.52 A1-A2 minimal activity 0.52-0.60 A2 significant activity 0.60-0.62 A2-A3 significant activity 0.62-1.00 A3 severe activity FibroTest-ActiTest Comment SEE NOTE [facility] DPT OF LAB MED AND PAT+ Comment: (NOTE) The reliability of results is [...] a test, it is recommended to seek advice of a specialist. The causes of these discordances could be due to a flaw of the test or to a flaw in the biopsy: i.e. a liver biopsy has a 33% variability rate for one fibrosis stage. FibroTest is interpretable for chronic hepatitis B and C, alcoholic and non alcoholic steatosis. ActiTest is interpretable for chronic hepatitis B and C. ADDITIONAL INFORMATION This test was developed and its performance characteristics determined by [facility] in a manner consistent with CLIA requirements. This test has not been cleared or approved by the U.S. Food and Drug Administration. BioPredictive Serial Number [id number] [facility] DPT OF LAB MED AND PAT+ Apolipoprotein A1, S 133 >=120 mg/dL [facility] DPT OF LAB MED AND PAT+ Jdmom-[id number]-[id number], S 335(H) 100 - 280 mg/dL [facility] DPT OF LAB MED AND PAT+ Haptoglobin, S 104 30 - 200 mg/dL [facility] DPT OF LAB MED AND PAT+ Alanine Aminotransferase (ALT), S 27 7 - 55 U/L [facility] DPT OF LAB MED AND PAT+ Gamma Glutamyltransferase (GGT), S 37 8 - 61 U/L [facility] DPT OF LAB MED AND PAT+ Bilirubin, Total, S 0.4 <=1.2 mg/dL [facility] DPT OF LAB MED AND PAT+ Blood 02/08/2018 11:1 3 AM EDT 02/08/2018 11:20 AM EDT us Sterling Lea MD LAB BLOOD ORDERABLES Final R esult [facility] DPT OF LAB MED AND PAT+ [address] [place] [address] * Comprehensive metabolic panel (02/08/2018 11:13 AM EDT) SODIUM 141 133 - 146 mmol/L [facility] POTASSIUM 3.8 3.3 - 5.1 mmol/L [facility] CHLORIDE 100 96 - 108 mmol/L [facility] CO2 26 21 - 35 mmol/L [facility] BUN 16 6 - 19 mg/dL [facility] CREATININE 1.10 0.5 - 1.5 mg/dL [facility] GLUCOSE 93 70 - 99 mg/dL [facility] ALBUMIN 4.7 3.9 - 4.8 g/dL [facility] TOTAL PROTEIN 7.9 6.5 - 8.0 g/dL [facility] CALCIUM 9.2 8.4 - 10.3 mg/dL [facility] ALKALINE PHOSPHATASE 55 39 - 117 U/L [facility] TOTAL BILIRUBIN 0.4 0.0 - 1.2 mg/dL [facility] AST 26 0 - 37 U/L [facility] ALT 24 0 - 40 U/L [facility] GLOBULIN 3.2 1 - 4.8 g/dL [facility] EGFR 68 >59 mL/min/1.7 3m2 [facility] Comment:If patient is black, multiply result by 1.159. Estimated glomerular filtration rate calculated using the CKD-EPI equation. ANION GAP 19 10 - 20 mmol/L [facility] Blood 02/08/2018 11:1 3 AM EDT 02/08/2018 11:20 AM EDT us Sterling Lea MD LAB BLOOD ORDERABLES Final R esult Performing Organization Address City/State/[facility] Co de Phone Number [address] [address] * (ABNORMAL) CBC (02/08/2018 11:13 AM EDT) WBC 6.33 3.40 - 11.20 K/uL [facility] RBC 4.97 4.50 - 5.50 M/uL [facility] HGB 13.1 13.0 - 17.0 g/dL [facility] HCT 41.0 40.0 - 51.0 % [facility] PLT 171 130 - 400 K/uL [facility] MCV 82.5 79.0 - 98.0 fL [facility] MCH 26.4(L) 27.0 - 34.8 pg [facility] MCHC 32.0 31.5 - 36.0 g/dL [facility] RDW 15.4(H) 10.8 - 14.6 % [facility] MPV 12.8(H) 9.4 - 12.4 fl [facility] NRBC 0.00 /100 WBCs [facility] ABSOLUTE NRBC 0.00 K/uL [facility] Blood 02/08/2018 11:1 3 AM EDT 02/08/2018 11:20 AM EDT us Sterling Lea MD LAB BLOOD ORDERABLES Final R esult [address] [address] documented in this encounter Visit Diagnoses Diagnosis Hereditary hemochromatosis- Primary Liver cirrhosis secondary to nonalcoholic steatohepatitis (JULIAN) documented in this encounter Care Teams Cyber Defense Incident Responder Relationship Specialty Start Date End Date Arjun Dunn MD [address] [place] [address] PCP - General 02/10/17 documented as of this encounter Additional Source Comments The information contained in this document represents components of the legal health record. It is not the complete legal health record.[facility]
--- OUTSIDE RECORDS SUMMARY | 2025-01-23 12:23 | XMS_ITS | Encounter Summary ---
Author Organization [facility] Address [address] [facility] [address] [place] [address] Phone Care Team Providers Care Documentation Clerk Name Role Phone Arjun Dunn MD Primary Care Provider +1- [phone] Encounter Details Date Type Department Care Team (Latest Contact Info) Description 06/22/2017 Transcribe Orders [facility] Therapeutic Phlebotomy 30 [place], [place] [id number] Sterling Lea MD [address] [place] [address] [email or web address] Hemochromatosis, unspecified hemochromatosis type (Primary Dx) [...] Date/Time Associated Diagnosis Comments THERAPEUTIC PHLEBOTOMY Routine 07/20/2017 9:50 AM EDT Hemochromatosis, unspecified hemochromatosis type documented in this encounter Results * Therapeutic phlebotomy (07/20/2017 9:50 AM EDT) Narrative Sandrita Levy - 07/20/2017 9:50 AM EDT See Therapeutic Phlebotomy flowsheet for procedure details. us Sterling Lea MD PROCEDURE/MINOR SURGICAL PER FORMABLES Final Result documented in this encounter Visit Diagnoses Diagnosis Hemochromatosis, unspecified hemochromatosis type- Primary documented in this encounter Care Teams Documentation Clerk Relationship Specialty Start Date End Date Arjun Dunn MD [address] [place] [phone] [email or web address] PCP - General 02/10/17 documented as of this encounter Additional Source Comments The information contained in this document represents components of the legal health record. It is not the complete legal health record.[facility]
--- OUTSIDE RECORDS SUMMARY | 2025-01-23 12:23 | XMS_ITS | Encounter Summary ---
Author Organization [facility] Address [address] [facility] [address] [place] [address] Phone Care Team Providers Care Gum Puller Name Role Phone Arjun Dunn MD Primary Care Provider +1- [phone] Encounter Details Date Type Department Care Team (Latest Contact Info) Description 01/04/2024 Transcribe Orders Virtual Department [address] [place] [address] Sterling Lea MD [address] [place] [address] [email or web address] Hepatoma (Primary Dx); Hemochromatosis, unspecified hemochromatosis type Social History Tobacco Use Types Packs/Day Years [...] * US ABDOMEN LIMITED RIGHT UPPER QUADRANT (01/09/2024 9:09 AM EDT) Anatomical Region Laterality Modality Abdomen Ultrasound 01/09/2024 9:52 AM EDT Impressions 01/09/2024 9:59 AM EDT 1. Stable subcentimeter hepatic cyst. 2. Increased echogenicity of liver suggesting fatty infiltration or other diffuse hepatocellular process Narrative 01/09/2024 9:59 AM EDT US ABDOMEN LIMITED RIGHT UPPER QUADRANT Referring clinician's provided indication for this examination in [facility]: Outside Radiology Order; hepatoma TECHNIQUE: US Abdominal limited right upper quadrant. COMPARISON: 06/21/2023 FINDINGS: Liver: Diffuse heterogeneous increased echogenicity of liver. There is a small 7 mm x 6 mm x 5 mm cyst in the liver similar to prior study. No new focal hepatic lesions identified Main Portal Vein: Patent with normal direction of flow. Gallbladder: Normal. No gallstones or gallbladder wall thickening. Sellers's Sign: Negative. Biliary: Normal. No intrahepatic or extrahepatic biliary ductal dilatation. The common bile duct measures 4 mm. Right kidney is 11.4 cm in length. No shadowing stones or hydronephrosis. Pancreas not well seen due to bowel gas artifact Procedure Note Isaak Miles MD - 01/09/2024 US ABDOMEN LIMITED RIGHT UPPER QUADRANT Referring clinician's provided indication for this examination in [facility]:Outside Radiology Order; hepatoma TECHNIQUE: US Abdominal limited right upper quadrant. COMPARISON: 06/21/2023 FINDINGS: Liver: Diffuse heterogeneous increased echogenicity of liver. There is asmall 7 mm x 6 mm x 5 mm cyst in the liver similar to prior study. No newfocal hepatic lesions identified Main Portal Vein: Patent with normal direction of flow. Gallbladder: Normal. No gallstones or gallbladder wall thickening. Sellers's Sign: Negative. Biliary: Normal. No intrahepatic or extrahepatic biliary ductaldilatation. The common bile duct measures 4 mm. Right kidney is 11.4 cm in length. No shadowing stones orhydronephrosis. Pancreas not well seen due to bowel gas artifact IMPRESSION: 1. Stable subcentimeter hepatic cyst. 2. Increased echogenicity of liver suggesting fatty infiltration or otherdiffuse hepatocellular process us Sterling Lea MD IMG US ABDOMEN Final Result documented in this encounter Visit Diagnoses Diagnosis Hepatoma- Primary Malignant neoplasm of liver, primary Hemochromatosis, unspecified hemochromatosis type Hepatoma Malignant neoplasm of liver, primary Hemochromatosis, unspecified hemochromatosis type documented in this encounter Care Teams Gum Puller Relationship Specialty Start Date End Date Arjun Dunn MD [address] [place] [address] [email or web address] PCP - General 02/10/17 documented as of this encounter Additional Source Comments The information contained in this document represents components of the legal health record. It is not the complete legal health record.[facility]
--- OUTSIDE RECORDS SUMMARY | 2025-01-23 12:23 | XMS_ITS | Encounter Summary ---
Author Organization [facility] Address [address] [place] [address] Phone Care Team Providers Care Outside Sales Inspector Name Role Phone Arjun Dunn MD Primary Care Provider +1- [phone] Encounter Details Date Type Department Care Team (Latest Contact Info) Description 04/28/2022 Transcribe Orders Virtual Department 30 [place] [address] Sterling Lea MD [address] [place] [address] [email or web address] Hepatoma (Primary Dx) Social History Tobacco Use Types [...] encounter Results * US LIVER WITH ELASTOGRAPHY (06/28/2022 10:23 AM EST) Anatomical Region Laterality Modality Abdomen Ultrasound 06/28/2022 2:46 PM EST Impressions 06/28/2022 2:58 PM EST Unchanged 8 mm hypoechoic region in the liver. The IQR to median ratio is less than 15% and the measure of liver stiffness is therefore acceptable. Substantially worsened liver quantification. This raises the possibility of artifact despite acceptable median shear wave velocity. The median shear wave speed is 2.15 m/s. This is greater than 2.1 m/s, which is consistent with compensated advanced chronic liver disease. [employer] ULTRASOUND CONSENSUS: In the setting of elevated liver function tests, nonfasting, vascular congestion, etc., the stage of liver fibrosis may be overestimated. In some patients with NAFLD, the cut-off values for compensated advanced chronic liver disease may be lower. In causes other than viral hepatitis and NAFLD, the cut-off values are not well established. Narrative 06/28/2022 2:58 PM EST US LIVER WITH ELASTOGRAPHY TECHNIQUE: Focused ultrasound evaluation of the liver. Volumetric sweeps were obtained and reviewed. COMPARISON: US LIVER WITH ELASTOGRAPHY FINDINGS: LIVER: Diffusely echogenic liver parenchyma is compatible with steatosis. Unchanged 8 mm hypoechoic region on the decubitus images. 7 mm and 4 mm hepatic cysts unchanged. ELASTOGRAPHY: Liver stiffness measurements were obtained in the right hepatic lobe on a [employer] ultrasound machine. 2D shear wave elastography technique was utilized following SRU guidelines. 10 valid measurements were obtained. Median shear wave speed is: 2.15 m/s. IQR to median ratio: 4.77%. BILIARY: Gallbladder: No gallstones, wall thickening, or pericholecystic fluid. Common bile duct measures 3 mm. Procedure Note Henrietta Damon MD - 06/28/2022 US LIVER WITH ELASTOGRAPHY TECHNIQUE: Focused ultrasound evaluation of the liver. Volumetric sweeps wereobtained and reviewed. COMPARISON: US LIVER WITH ELASTOGRAPHY FINDINGS: LIVER: Diffusely echogenic liver parenchyma is compatible with steatosis.Unchanged 8 mm hypoechoic region on the decubitus images. 7 mm and 4 mmhepatic cysts unchanged. ELASTOGRAPHY: Liver stiffness measurements were obtained in the righthepatic lobe on a [employer] ultrasound machine. 2D shear wave elastographytechnique was utilized following SRU guidelines. 10 valid measurements were obtained. Median shear wave speed is: 2.15m/s. IQR to median ratio: 4.77%. BILIARY: Gallbladder: No gallstones, wall thickening, or pericholecysticfluid. Common bile duct measures 3 mm. IMPRESSION: Unchanged 8 mm hypoechoic region in the liver. The IQR to median ratio is less than 15% and the measure of liverstiffness is therefore acceptable. Substantially worsened liver quantification. This raises the possibilityof artifact despite acceptable median shear wave velocity. The median shear wave speed is 2.15 m/s. This is greater than 2.1 m/s,which is consistent with compensated advanced chronic liver disease. SOCIETY OF RADIOLOGISTS IN ULTRASOUND CONSENSUS: In the setting of elevated liver function tests, nonfasting, vascularcongestion, etc., the stage of liver fibrosis may be overestimated. Insome patients with NAFLD, the cut-off values for compensated advancedchronic liver disease may be lower. In causes other than viral hepatitisand NAFLD, the cut-off values are not well established. us Sterling Lea MD IMG US ABDOMEN Final Result documented in this encounter Visit Diagnoses Diagnosis Hepatoma- Primary Malignant neoplasm of liver, primary Hepatoma Malignant neoplasm of liver, primary documented in this encounter Care Teams Outside Sales Inspector Relationship Specialty Start Date End Date Arjun Dunn MD [address] [place] [phone] [email or web address] PCP - General 02/10/17 documented as of this encounter Additional Source Comments The information contained in this document represents components of the legal health record. It is not the complete legal health record.[facility]
--- OUTSIDE RECORDS SUMMARY | 2025-01-23 12:23 | XMS_ITS | Encounter Summary ---
Author Organization [facility] Address [address] [facility] [address] [place] [address] Phone Care Team Providers Care Polytechnic Registrar Name Role Phone Arjun Dunn MD Primary Care Provider +1- [phone] Encounter Details Date Type Department Care Team (Latest Contact Info) Description 01/08/2019 Transcribe Orders [facility] Therapeutic Phlebotomy 30 [place] [address] Sterling Lea MD [address] [place] [address] [email or web address] Hemochromatosis, unspecified hemochromatosis type (Primary [...] Primary documented in this encounter Care Teams Polytechnic Registrar Relationship Specialty Start Date End Date Arjun Dunn MD [address] [place] [address] PCP - General 02/10/17 documented as of this encounter Additional Source Comments The information contained in this document represents components of the legal health record. It is not the complete legal health record.[facility]
--- OUTSIDE RECORDS SUMMARY | 2025-01-23 12:23 | XMS_ITS | Encounter Summary ---
Author Organization [facility] Address [address] [facility] [address] [place] [address] Phone Care Team Providers Care Division Manager Name Role Phone Arjun Dunn MD Primary Care Provider +1- [phone] Encounter Details Date Type Department Care Team (Latest Contact Info) Description 01/25/2020 Transcribe Orders Virtual Department 30 [place] [address] Sterling Lea MD [address] [place] [address] [email or web address] Hemochromatosis, unspecified hemochromatosis type (Primary Dx) [...] * US ABDOMEN LIMITED RIGHT UPPER QUADRANT (03/03/2020 9:52 AM EST) Anatomical Region Laterality Modality Abdomen Ultrasound 03/03/2020 9:55 AM EST Impressions 03/03/2020 9:57 AM EST Chronically echogenic liver similar to a year ago. No new right upper quadrant pathology. POS [id number] Narrative 03/03/2020 9:57 AM EST Limited right upper quadrant ultrasound Compare 03/05/2019 No gallstones, gallbladder wall thickening, hyperemia or pericholecystic fluid. No biliary dilatation. CBD 3 mm. Liver remains moderately, diffusely hyperechoic, similar or slightly more prominent than the previous study. No focal liver lesions or enlargement. No right-sided hydronephrosis. No right upper quadrant ascites. Pancreatic head and body unremarkable. Distal tail obscured by gas. Procedure Note Danny Waite MD - 03/03/2020 Limited right upper quadrant ultrasound Compare 03/05/2019 No gallstones, gallbladder wall thickening, hyperemia or pericholecysticfluid. No biliary dilatation. CBD 3 mm. Liver remains moderately, diffusely hyperechoic, similar or slightly moreprominent than the previous study. No focal liver lesions orenlargement. No right-sided hydronephrosis. No right upper quadrant ascites. Pancreatic head and body unremarkable. Distal tail obscured by gas. IMPRESSION: Chronically echogenic liver similar to a year ago. No new right upperquadrant pathology. POS [id number] us Sterling Lea MD IMG US ABDOMEN Final Result documented in this encounter Visit Diagnoses Diagnosis Hemochromatosis, unspecified hemochromatosis type- Primary Hemochromatosis, unspecified hemochromatosis type documented in this encounter Care Teams Division Manager Relationship Specialty Start Date End Date Arjun Dunn MD [address] [place] [phone] [email or web address] PCP - General 02/10/17 documented as of this encounter Additional Source Comments The information contained in this document represents components of the legal health record. It is not the complete legal health record.[facility]
--- OUTSIDE RECORDS SUMMARY | 2025-01-23 12:23 | XMS_ITS | Encounter Summary ---
Author Organization [facility] Address [address] [facility] [address] [place] [address] Phone Care Team Providers Care Driller Hand Name Role Phone Arjun Dunn MD Primary Care Provider +1- [phone] Encounter Details Date Type Department Care Team (Latest Contact Info) Description 01/08/2019 Transcribe Orders [facility] Therapeutic Phlebotomy 30 [place] [address] Sterling Lea MD [address] [place] [address] [email or web address] Hemochromatosis, unspecified hemochromatosis type (Primary Dx) [...] Primary documented in this encounter Care Teams Driller Hand Relationship Specialty Start Date End Date Arjun Dunn MD 31 [place] [address] PCP - General 02/10/17 documented as of this encounter Additional Source Comments The information contained in this document represents components of the legal health record. It is not the complete legal health record.[facility]
--- OUTSIDE RECORDS SUMMARY | 2025-01-23 12:23 | XMS_ITS | Encounter Summary ---
Author Organization [facility] Address [address] [facility] [address] [place] [address] Phone Care Team Providers Care Barrel Cutter Name Role Phone Arjun Dunn MD Primary Care Provider +1- [phone] Encounter Details Date Type Department Care Team (Latest Contact Info) Description 01/08/2019 Transcribe Orders [facility] Therapeutic Phlebotomy 30 [place] [address] Sterling Lea MD [address] [place] [address] [email or web address] Hemochromatosis, unspecified [...] Primary documented in this encounter Care Teams Barrel Cutter Relationship Specialty Start Date End Date Arjun Dunn MD 31 [place] [address] PCP - General 02/10/17 documented as of this encounter Additional Source Comments The information contained in this document represents components of the legal health record. It is not the complete legal health record.[facility]
--- OUTSIDE RECORDS SUMMARY | 2025-01-23 12:23 | XMS_ITS | Encounter Summary ---
Author Organization [facility] Address [address] [place] [address] Phone Care Team Providers Care Sensor Operator Name Role Phone Arjun Dunn MD Primary Care Provider +1- [phone] Encounter Details Date Type Department Care Team (Latest Contact Info) Description 03/05/2020 Transcribe Orders Virtual Department 30 [place] [address] Sterling Lea MD [address] [place] [address] [email or web address] Non-alcoholic fatty liver disease (Primary Dx); Hemosiderosis Social History Tobacco Use Types Packs/Day Years [...] encounter Results * US LIVER WITH ELASTOGRAPHY (03/26/2020 10:27 AM EST) Anatomical Region Laterality Modality Abdomen Ultrasound 03/26/2020 1:05 PM EST Impressions 03/26/2020 1:10 PM EST The IQR to median ratio is less than 15% and the measure of liver stiffness is therefore acceptable. The median shear wave speed is 1.51 m/s. This is less than 1.7 m/s, which in the absence of other known clinical signs, rules out compensated advanced chronic liver disease. RECOMMENDATION: If there are known clinical signs of compensated advanced chronic liver disease, further testing for confirmation could be considered. [employer]IOLOGISTS IN ULTRASOUND CONSENSUS: In the setting of elevated liver function tests, nonfasting, vascular congestion, etc., the stage of liver fibrosis may be overestimated. In some patients with NAFLD, the cut-off values for compensated advanced chronic liver disease may be lower. In causes other than viral hepatitis and NAFLD, the cut-off values are not well established. Narrative 03/26/2020 1:10 PM EST TECHNIQUE: Focused ultrasound evaluation of the liver. Volumetric sweeps were obtained and reviewed. COMPARISON: None FINDINGS: LIVER: Diffusely echogenic liver parenchyma is compatible with steatosis. No suspicious lesions. Right hepatic lobe 6 mm cyst. ELASTOGRAPHY: Liver stiffness measurements were obtained in the right hepatic lobe on a [employer] ultrasound machine. Point shear wave elastography technique was utilized following SRU guidelines. Site D is reported as it is technically optimal. 10 valid measurements were obtained. Median shear wave speed: 1.51 m/s. IQR to median ratio: 0.03. BILIARY: Gallbladder: No cholelithiasis, gallbladder wall thickening, or pericholecystic fluid. Negative sonographic Sellers sign. Common bile duct measures 4 mm. ADDITIONAL FINDINGS: Proximal aorta measures 3.0 cm in greatest diameter. Procedure Note Gene Peace MD - 03/26/2020 TECHNIQUE: Focused ultrasound evaluation of the liver. Volumetric sweeps wereobtained and reviewed. COMPARISON: None FINDINGS: LIVER: Diffusely echogenic liver parenchyma is compatible with steatosis.No suspicious lesions. Right hepatic lobe 6 mm cyst. ELASTOGRAPHY: Liver stiffness measurements were obtained in the righthepatic lobe on a [employer] ultrasound machine. Point shear waveelastography technique was utilized following SRU guidelines. Site D isreported as it is technically optimal. 10 valid measurements wereobtained. Median shear wave speed: 1.51 m/s. IQR to median ratio: 0.03. BILIARY: Gallbladder: No cholelithiasis, gallbladder wall thickening, orpericholecystic fluid. Negative sonographic Sellers sign. Common bile duct measures 4 mm. ADDITIONAL FINDINGS: Proximal aorta measures 3.0 cm in greatestdiameter. IMPRESSION: The IQR to median ratio is less than 15% and the measure of liverstiffness is therefore acceptable. The median shear wave speed is 1.51 m/s. This is less than 1.7 m/s, whichin the absence of other known clinical signs, rules out compensatedadvanced chronic liver disease. RECOMMENDATION: If there are known clinical signs of compensated advanced chronic liverdisease, further testing for confirmation could be considered. SOCIETY OF RADIOLOGISTS IN ULTRASOUND CONSENSUS: In [...] documented in this encounter Visit Diagnoses Diagnosis Non-alcoholic fatty liver disease- Primary Hemosiderosis Disorders of iron metabolism Non-alcoholic fatty liver disease Hemosiderosis Disorders of iron metabolism documented in this encounter Care Teams Sensor Operator Relationship Specialty Start Date End Date Arjun Dunn MD [address] [place] [id number] [email or web address] PCP - General 02/10/17 documented as of this encounter Additional Source Comments The information contained in this document represents components of the legal health record. It is not the complete legal health record.[facility]
--- OUTSIDE RECORDS SUMMARY | 2025-01-23 12:23 | XMS_ITS | Encounter Summary ---
Author Organization [facility] Address [address] [facility] [address] [place] [address] Phone Care Team Providers Care Terminal Block Assembler Name Role Phone Arjun Dunn MD Primary Care Provider +1- [phone] Encounter Details Date Type Department Care Team (Latest Contact Info) Description 02/21/2019 Transcribe Orders Virtual Department 30 [place] [address] Sterling Lea MD [address] [place] [address] [email or web address] Hereditary hemochromatosis (Primary Dx); JULIAN (nonalcoholic steatohepatitis) Social History Tobacco Use Types Packs/Day Years [...] * US ABDOMEN LIMITED RIGHT UPPER QUADRANT (03/05/2019 8:34 AM EST) Anatomical Region Laterality Modality Abdomen Ultrasound 03/05/2019 10:1 0 AM EST Impressions 03/05/2019 10:15 AM EST Nonspecific mildly hyperechoic liver parenchyma with mixed echogenicities. Findings may represent fatty infiltration or other hepatocellular disease. POS - [id number] Narrative 03/05/2019 10:15 AM EST EXAM: US ABDOMEN LIMITED RIGHT UPPER QUADRANT HISTORY: Hemochromatosis. COMPARISON: No prior images. TECHNIQUE: Limited ultrasound examination of right upper quadrant of abdomen was performed and multiple static images obtained. FINDINGS: Examination partially limited by bowel gas. PANCREAS: Visualized portions of the pancreas appear unremarkable. LIVER: Mildly hyperechoic liver parenchyma with mixed echogenicities. No focal lesion demonstrated in the provided images. GALLBLADDER/BILIARY: The gallbladder has a normal appearance, without evidence for gallstones, gallbladder wall thickening or pericholecystic fluid. Common bile duct demonstrates a normal diameter and measures 0.4 cm. RIGHT KIDNEY: No hydronephrosis. Upper AORTA and IVC: Visualized upper portions of aorta and inferior vena cava are unremarkable. Other: No free fluid demonstrated. Procedure Note Don Gutierrez MD - 03/05/2019 EXAM: US ABDOMEN LIMITED RIGHT UPPER QUADRANT HISTORY: Hemochromatosis. COMPARISON: No prior images. TECHNIQUE: Limited ultrasound examination of right upper quadrant ofabdomen was performed and multiple static images obtained. FINDINGS: Examination partially limited by bowel gas. PANCREAS: Visualized portions of the pancreas appear unremarkable. LIVER: Mildly hyperechoic liver parenchyma with mixed echogenicities. Nofocal lesion demonstrated in the provided images. GALLBLADDER/BILIARY: The gallbladder has a normal appearance, withoutevidence for gallstones, gallbladder wall thickening or pericholecysticfluid. Common bile duct demonstrates a normal diameter and measures 0.4cm. RIGHT KIDNEY: No hydronephrosis. Upper AORTA and IVC: Visualized upper portions of aorta and inferior venacava are unremarkable. Other: No free fluid demonstrated. IMPRESSION: Nonspecific mildly hyperechoic liver parenchyma with mixed echogenicities.Findings may represent fatty infiltration or other hepatocellulardisease. POS - [id number] Sterling Lea MD [facility] US ABDOMEN Final Result documented in this encounter Visit Diagnoses Diagnosis Hereditary hemochromatosis- Primary JULIAN (nonalcoholic steatohepatitis) Other chronic nonalcoholic liver disease Hereditary hemochromatosis JULIAN (nonalcoholic steatohepatitis) Other chronic nonalcoholic liver disease documented in this encounter Care Teams Terminal Block Assembler Relationship Specialty Start Date End Date Arjun Dunn MD [address] [place] [phone] [email or web address] PCP - General 02/10/17 documented as of this encounter Additional Source Comments The information contained in this document represents components of the legal health record. It is not the complete legal health record.[facility]
--- OUTSIDE RECORDS SUMMARY | 2025-01-23 12:23 | XMS_ITS | Encounter Summary ---
Author Organization [facility] Address [address] [place] [address] [place] [address] Phone Care Team Providers Care Fiberglass Luggage Molder Name Role Phone Arjun Dunn MD Primary Care Provider +1- [phone] Reason for Referral * MRI/CAT Scan - Closed Specialty Diagnoses / Procedures Referred By Nakul philip Referred To Contact Radiology Diagnoses Liver lesion Procedures MRI Abdomen Sterling Lea MD Phone: tel: fax: mailto: Referral ID Status Reason Start Date Expiration Date Visits Re quested Visits Authorized [id number] Closed 02/02/2022 02/02/2023 1 1 Encounter Details Date Type Department Care Team (Latest Contact Info) Description 02/02/2022 Transcribe Orders Virtual Department 30 [place] [address] Sterling Lea MD [address] [place] [address] [email or web address] Liver lesion (Primary Dx) Social History Tobacco Use Types Packs/Day Years Used Date Smoking Tobacco: Never Assessed Sex and Gender Information Value Date Recorded Sex Assigned at Not on file Legal Sex Male 10:04 PM EDT Gender Identity Not on file Sexual Orientation Not on file documented as of this encounter Plan of Treatment Not on file documented as of this encounter Results * MRI ABDOMEN WITH AND WITHOUT CONTRAST (02/16/2022 2:05 PM EDT) Anatomical Region Laterality Modality Abdomen Magnetic Resonan ce 02/19/2022 7:00 PM EDT Impressions 02/20/2022 12:41 PM EDT No MR correlate to the 8mm finding on ultrasound from 02/02/2022, which is almost certainly benign, possibly focal fat sparing. No suspicious focal liver lesion. Hepatic steatosis. Narrative 02/20/2022 12:41 PM EDT MRI ABDOMEN WITH AND WITHOUT CONTRAST TECHNIQUE: Multiplanar MR imaging of the abdomen was performed using T1, T2, fat saturated, and diffusion weighted techniques. Dynamic multiphase imaging was also performed after administration of an intravenous gadolinium contrast agent. COMPARISON: Liver ultrasound 02/02/2022 FINDINGS: Lower Chest: Normal. No effusions. Liver: Hepatic steatosis. Few benign cysts. No MR correlate to the 8mm finding on ultrasound from 02/02/2022 Biliary: Normal. No biliary ductal dilatation. Spleen: No splenomegaly. Hyperenhancing focus along the superior spleen (18:86) is almost certainly benign. Pancreas: Normal. No masses or ductal dilatation. Adrenal Glands: Normal. No nodules. Kidneys/Ureters: Normal. No solid masses or hydronephrosis. Bowel: Normal. No dilatation or wall thickening. Peritoneum/Retroperitoneum: Normal. No masses or fluid. Lymph Nodes: Normal. No lymphadenopathy. Vessels: Normal. No abdominal aortic aneurysm. Bones/Soft Tissues: Normal. No focal marrow replacing lesions. Procedure Note Thong Bennett MD - 02/20/2022 MRI ABDOMEN WITH AND WITHOUT CONTRAST TECHNIQUE: Multiplanar MR imaging of the abdomen was performed using T1,T2, fat saturated, and diffusion weighted techniques. Dynamic multiphaseimaging was also performed after administration of an intravenousgadolinium contrast agent. COMPARISON: Liver ultrasound 02/02/2022 FINDINGS: Lower Chest: Normal. No effusions. Liver: Hepatic steatosis. Few benign cysts. No MR correlate to the 8mmfinding on ultrasound from 02/02/2022 Biliary: Normal. No biliary ductal dilatation. Spleen: No splenomegaly. Hyperenhancing focus along the superior spleen(18:86) is almost certainly benign. Pancreas: Normal. No masses or ductal dilatation. Adrenal Glands: Normal. No nodules. Kidneys/Ureters: Normal. No solid masses or hydronephrosis. Bowel: Normal. No dilatation or wall thickening. Peritoneum/Retroperitoneum: Normal. No masses or fluid. Lymph Nodes: Normal. No lymphadenopathy. Vessels: Normal. No abdominal aortic aneurysm. Bones/Soft Tissues: Normal. No focal marrow replacing lesions. IMPRESSION: No MR correlate to the 8mm finding on ultrasound from 02/02/2022, which isalmost certainly benign, possibly focal fat sparing. No suspicious focalliver lesion. Hepatic steatosis. Sterling Lea MD IMG MR ABDOMEN Final Result documented in this encounter Visit Diagnoses Diagnosis Liver lesion- Primary Other specified disorders of liver Liver lesion Other specified disorders of liver documented in this encounter Care Teams Fiberglass Luggage Molder Relationship Specialty Start Date End Date Arjun Dunn MD [address] [place] [phone] [email or web address] PCP - General 02/10/17 documented as of this encounter Additional Source Comments The information contained in this document represents components of the legal health record. It is not the complete legal health record.[facility]
--- OUTSIDE RECORDS SUMMARY | 2025-01-23 12:23 | XMS_ITS | Encounter Summary ---
Author Organization [facility] Address [address] [facility] [address] [place] [address] Phone Care Team Providers Care Sr. Unix System Administrator Name Role Phone Arjun Dunn MD Primary Care Provider +1- [phone] Encounter Details Date Type Department Care Team (Latest Contact Info) Description 03/27/2024 Transcribe Orders [facility] [address] [facility] [place] [address] Sterling Lea MD [address] [facility] 2 [place] [address] [email or web address] Gastroesophageal reflux disease, unspecified whether esophagitis [...] of this encounter Plan of Treatment Scheduled Orders Name Type Priority Associated Diagnoses Orde r Schedule AFP (non-maternal specimens) Lab Routine Gastroesophageal reflux disease, unspecified whether esophagitis present Monthly for 3 Occurrences starting 03/27/2024 until 03/27/2025, 1 completed CBC Lab Routine Gastroesophageal reflux disease, unspecified whether esophagitis present Other for 3 Occurrences starting 03/27/2024 until 03/27/2025, 1 completed Comprehensive metabolic panel Lab Routine Gastroesophageal reflux disease, unspecified whether esophagitis present Monthly for 3 Occurrences starting 03/27/2024 until 03/27/2025, 1 completed documented as of this encounter Results * (ABNORMAL) Comprehensive metabolic panel (03/27/2024 3:28 PM EST) SODIUM 142 133 - 146 mmol/L [facility] POTASSIUM 3.7 3.3 - 5.1 mmol/L [facility] CHLORIDE 104 96 - 108 mmol/L [facility] CO2 27 21 - 35 mmol/L [facility] BUN 20(H) 6 - 19 mg/dL [facility] CREATININE 1.00 0.5 - 1.5 mg/dL [facility] GLUCOSE 88 70 - 99 mg/dL [facility] ALBUMIN 4.5 3.9 - 4.8 g/dL [facility] TOTAL PROTEIN 7.3 6.5 - 8.0 g/dL [facility] CALCIUM 9.6 8.4 - 10.3 mg/dL [facility] ALKALINE PHOSPHATASE 58 39 - 117 U/L [facility] TOTAL BILIRUBIN 0.5 0.0 - 1.2 mg/dL [facility] AST 31 0 - 37 U/L [facility] ALT 27 0 - 40 U/L [facility] GLOBULIN 2.8 1 - 4.8 g/dL [facility] EGFR 78 >59 mL/min/1.7 3m2 [facility] Comment:Estimated glomerular filtration rate calculated using the CKD-EPI refit equation. ANION GAP 15 10 - 20 mmol/L [facility] Blood 03/27/2024 3:28 PM EST 03/27/2024 3:34 PM EST us Sterling Lea MD LAB BLOOD ORDERABLES Final R esult [facility] [address] [place] [address] * (ABNORMAL) CBC (03/27/2024 3:28 PM EST) WBC 7.59 4.00 - 11.00 K/uL [facility] RBC 5.07 4.50 - 5.90 M/uL [facility] HGB 15.3 13.5 - 17.5 g/dL [facility] HCT 46.3 41.0 - 53.0 % [facility] PLT 144(L) 150 - 450 K/uL [facility] MCV 91.3 80.0 - 100.0 fL [facility] MCH 30.2 27.0 - 31.0 pg [facility] MCHC 33.0 32.0 - 36.0 g/dL [facility] RDW 13.9 11.5 - 14.5 % [facility] MPV 12.8(H) 8.4 - 12.0 fL [facility] NRBC 0.00 0.00 /100 WBCs [facility] ABSOLUTE NRBC 0.00 0.00 K/uL [facility] Blood 03/27/2024 3:28 PM EST 03/27/2024 3:34 PM EST Sterling Lea MD LAB BLOOD ORDERABLES Final R esult Performing Organization Address City/[facility] Co de Phone Number [address] [phone] * AFP (non-maternal specimens) (03/27/2024 3:28 PM EST) Pathologist [facility] AFP (NON-MATERNAL) 4.3 <7.9 ng/mL [facility] Comment: Test Methodology Viji [id number] Patient results determined by assays using different manufacturers or methods may not be comparable. Blood 03/27/2024 3:28 PM EST 03/27/2024 3:34 PM EST Sterling Lea MD LAB BLOOD ORDERABLES Final R esult Performing Organization Address City/[facility] Co de Phone Number [address] [address] documented in this encounter Visit Diagnoses Diagnosis Gastroesophageal reflux disease, unspecified whether esophagitis present- Primary documented in this encounter Care Teams Sr. Unix System Administrator Relationship Specialty Start Date End Date Arjun Dunn MD [address] [place] [address] [email or web address] PCP - General 02/10/17 documented as of this encounter Additional Source Comments The information contained in this document represents components of the legal health record. It is not the complete legal health record.[facility]
--- OUTSIDE RECORDS SUMMARY | 2025-01-23 12:24 | XMS_ITS | Encounter Summary ---
Author Organization [facility] Address [address] [facility] [address] [place] [address] Phone Care Team Providers Care Damascener Name Role Phone Arjun Dunn MD Primary Care Provider [phone]- [phone] Encounter Details Date Type Department Care Team (Latest Contact Info) Description 11/05/2022 Transcribe Orders Virtual Department 30 [place] [address] Sterling Lea MD [address] [place] [address] [email or web address] Hepatoma (Primary Dx) Social History Tobacco Use [...] encounter Results * US LIVER WITH ELASTOGRAPHY (12/17/2022 10:40 AM EDT) Anatomical Region Laterality Modality Abdomen Ultrasound 12/18/2022 2:08 PM EDT Impressions 12/18/2022 2:26 PM EDT Hepatic steatosis. No biliary duct dilatation. The IQR to median ratio is less than 15% and the measure of liver stiffness is therefore acceptable. The median shear wave speed is 1.38 m/s. This is less than 1.7 m/s, [...] cut-off values are not well established. Narrative 12/18/2022 2:26 PM EDT US LIVER WITH ELASTOGRAPHY TECHNIQUE: US LIVER WITH ELASTOGRAPHY COMPARISON: US LIVER WITH ELASTOGRAPHY FINDINGS: LIVER: Increased echogenicity. 6 mm hepatic cyst. Previously seen hypoechoic region adjacent to the gallbladder fossa most likely focal fatty sparing. Portal vein patent with normal direction of flow. Hepatic veins patent. BILE DUCTS: No dilated intrahepatic biliary radicles. Common bile duct measures 4 mm. GALLBLADDER: No gallstones, wall thickening, or pericholecystic fluid. RIGHT KIDNEY: 10.9 cm. Normal echogenicity. No hydronephrosis. PANCREAS: No ductal dilatation. AORTA: Normal caliber where imaged. IVC: Normal proximally, not imaged distally. ELASTOGRAPHY: Liver stiffness measurements were obtained in the right hepatic lobe on a Microm[employer]cle ultrasound machine. 2D shear wave elastography technique was utilized following SRU guidelines. 10 valid measurements were obtained. Median shear wave speed is: 1.38 m/s. IQR to median ratio: 4%. Procedure Note Henrietta Damon MD - 12/18/2022 US LIVER WITH ELASTOGRAPHY TECHNIQUE: US LIVER WITH ELASTOGRAPHY COMPARISON: US LIVER WITH ELASTOGRAPHY FINDINGS: LIVER: Increased echogenicity. 6 mm hepatic cyst. Previously seenhypoechoic region adjacent to the gallbladder fossa most likely focalfatty sparing. Portal vein patent with normal direction of flow. Hepaticveins patent. BILE DUCTS: No dilated intrahepatic biliary radicles. Common bile ductmeasures 4 mm. GALLBLADDER: No gallstones, wall thickening, or pericholecystic fluid. RIGHT KIDNEY: 10.9 cm. Normal echogenicity. No hydronephrosis. PANCREAS: No ductal dilatation. AORTA: Normal caliber where imaged. IVC: Normal proximally, not imaged distally. ELASTOGRAPHY: Liver stiffness measurements were obtained in the righthepatic lobe on a Microm[employer]cle ultrasound machine. 2D shear wave elastographytechnique was utilized following SRU guidelines. 10 valid measurements were obtained. Median shear wave speed is: 1.38m/s. IQR to median ratio: 4%. IMPRESSION: Hepatic steatosis. No biliary duct dilatation. The IQR to median ratio is less than 15% and the measure of liverstiffness is therefore acceptable. The median shear wave speed is 1.38 m/s. This is less than 1.7 m/s, [...] primary documented in this encounter Care Teams Damascener Relationship Specialty Start Date End Date Arjun uDnn MD [address] [place] [address] PCP - General 02/10/17 documented as of this encounter Additional Source Comments The information contained in this document represents components of the legal health record. It is not the complete legal health record.[facility]
--- OUTSIDE RECORDS SUMMARY | 2025-01-23 12:24 | XMS_ITS | Encounter Summary ---
Author Organization [facility] Address [address] [facility] [address] [place] [address] Phone Care Team Providers Care Compliance Officer Name Role Phone Arjun Dunn MD Primary Care Provider +1- [phone] Encounter Details Date Type Department Care Team (Latest Contact Info) Description 08/03/2017 Transcribe Orders [facility] Therapeutic Phlebotomy 30 [place] [address] Sterling Lea MD [address] [address] [email or web address] Hereditary hemochromatosis (Primary Dx) Social History [...] as of this encounter Visit Diagnoses Diagnosis Hereditary hemochromatosis- Primary documented in this encounter Care Teams Compliance Officer Relationship Specialty Start Date End Date Arjun Dunn MD [address] [place] [address] PCP - General 02/10/17 documented as of this encounter Additional Source Comments The information contained in this document represents components of the legal health record. It is not the complete legal health record.[facility]
--- OUTSIDE RECORDS SUMMARY | 2025-01-23 12:24 | XMS_ITS | Encounter Summary ---
Author Organization [facility] Address [address] [facility] [address] [place] [id number] Phone Care Team Providers Care Color Worker Name Role Phone Arjun Dunn MD Primary Care Provider [phone]- [phone] Encounter Details Date Type Department Care Team (Latest Contact Info) Description 06/07/2019 Transcribe Orders [facility] Therapeutic Phlebotomy [address] [place] [address] Sterling Lea MD [address] [place] [phone] [email or web address] Hemochromatosis, unspecified hemochromatosis type (Primary [...] Primary documented in this encounter Care Teams Color Worker Relationship Specialty Start Date End Date Arjun Dunn MD [address] [place] [address] PCP - General 02/10/17 documented as of this encounter Additional Source Comments The information contained in this document represents components of the legal health record. It is not the complete legal health record.[facility]
--- OUTSIDE RECORDS SUMMARY | 2025-01-23 12:24 | XMS_ITS | Encounter Summary ---
Author Organization [facility] Address [address] [facility] [address] [place] [phone] Phone Care Team Providers Care Well Puller Head Name Role Phone Arjun Dunn MD Primary Care Provider [phone]- [phone] Encounter Details Date Type Department Care Team (Latest Contact Info) Description 03/29/2023 Transcribe Orders Virtual Department [address] [place] [address] Sterling Lea MD [address] [place] [phone] [email or web address] JULIAN (nonalcoholic steatohepatitis) (Primary Dx); [...] * US ABDOMEN LIMITED RIGHT UPPER QUADRANT (06/21/2023 9:57 AM EST) Anatomical Region Laterality Modality Abdomen Ultrasound 06/21/2023 10:0 4 AM EST Impressions 06/21/2023 3:26 PM EST 1. Redemonstration of increased echogenicity of hepatic parenchyma with hepatic steatosis 2. Redemonstration of a 6 mm cyst is identified. No additional focal hepatic lesions demonstrated sonographically. Narrative 06/21/2023 3:26 PM EST US ABDOMEN LIMITED RIGHT UPPER QUADRANT Referring clinician's provided indication for this examination in [facility]: Outside Radiology Order; JULIAN TECHNIQUE: US Abdominal limited right upper quadrant. COMPARISON: Abdominal MRI 02/16/2022 and sonography 12/17/2022 FINDINGS: Liver: There is increased echogenicity of the hepatic parenchyma with mild heterogeneity suggestive of hepatic steatosis redemonstration of a neobladder fossa again suggestive of of a cyst. No additional focal hepatic lesion demonstrated sonographically. Main Portal Vein: Patent with normal direction of flow. Gallbladder: No gallstones or gallbladder wall thickening. Sellers's Sign: Negative. Biliary: Normal. No intrahepatic or extrahepatic biliary ductal dilatation. The common bile duct measures 4 mm. Right Kidney: No stones or hydronephrosis. Procedure Note Adamaris Charles MD - 06/21/2023 US ABDOMEN LIMITED RIGHT UPPER QUADRANT Referring clinician's provided indication for this examination in [facility]:Outside Radiology Order; JULIAN TECHNIQUE: US Abdominal limited right upper quadrant. COMPARISON: Abdominal MRI 02/16/2022 and sonography 12/17/2022 FINDINGS: Liver: There is increased echogenicity of the hepatic parenchyma with mildheterogeneity suggestive of hepatic steatosis redemonstration of aneobladder fossa again suggestive of of a cyst. No additional focalhepatic lesion demonstrated sonographically. Main Portal Vein: Patent with normal direction of flow. Gallbladder: No gallstones or gallbladder wall thickening. Sellers's Sign: Negative. Biliary: Normal. No intrahepatic or extrahepatic biliary ductaldilatation. The common bile duct measures 4 mm. Right Kidney: No stones or hydronephrosis. IMPRESSION: 1. Redemonstration of increased echogenicity of hepatic parenchyma withhepatic steatosis 2. Redemonstration of a 6 mm cyst is identified. No additional focalhepatic lesions demonstrated sonographically. us Sterling Lea MD IMG US ABDOMEN Final Result documented in this encounter Visit Diagnoses Diagnosis JULIAN (nonalcoholic steatohepatitis)- Primary Other chronic nonalcoholic liver disease Hereditary hemochromatosis JULIAN (nonalcoholic steatohepatitis) Other chronic nonalcoholic liver disease Hereditary hemochromatosis documented in this encounter Care Teams Well Puller Head Relationship Specialty Start Date End Date Arjun Dunn MD [address] [place] [address] [email or web address] PCP - General 02/10/17 documented as of this encounter Additional Source Comments The information contained in this document represents components of the legal health record. It is not the complete legal health record.[facility]
[2025-01-23 12:25] LABS: Ferritin 35 ng/mL (20-250)
== END 2025-01-23 10:49 | disposition home or self-care (01) ==
LOC: HO.BBR 10:48
PROVIDERS: PCP Internal Medicine; Visit Provider Internal Medicine Gastroenterology
DX: E83.110 Hereditary hemochromatosis (principal)
CPT/HCPCS: 36415; 82728; 83540; 85025